=== PATIENT | female | born 1985 ===

== ENCOUNTER 2019-12-25 23:19 | Inpatient (IN) | payer OTHER ==
[2019-12-25] MEDS ORDERED: RAPID SEQUENCE INTUBATION KIT NR ONE (23:26)
[2019-12-25] MEDS ORDERED: PROPOFOL 1,000,000 MCG/100 ML VIAL ONE (23:39)
[2019-12-25] MEDS: MIDAZOLAM 100 MG in SODIUM CHLORIDE 100 ML IVPB SCH (23:45)
[2019-12-25] MEDS ORDERED: MIDAZOLAM IN 0.9 % SOD.CHLORID 1 MG/1 ML PLAST..BAG ONE (23:53)
[2019-12-25] MEDS ORDERED: LACTATED RINGERS SOLUTION 1000 ML INFUS.BAG IV ONE (23:55)
[2019-12-25] MEDS ORDERED: SODIUM CHLORIDE 0.9% 1000 ML INFUS.BAG IV ONE (23:55)
[2019-12-25] MEDS ORDERED: ETOMIDATE 20 MG/10 ML AMPUL IVPUSH ONE (23:56)
[2019-12-25] MEDS ORDERED: ROCURONIUM BROMIDE 50 MG/5 ML VIAL IV ONE (23:56)
[2019-12-26] MEDS ORDERED: ACETAMINOPHEN 650 MG SUPP.RECT ONE (00:14)
[2019-12-26] MEDS ORDERED: ACETAMINOPHEN 1000 MG/100 ML VIAL (NON FORMULARY) IVPB ONE (00:14)
--- NOTE | 2019-12-26 00:17 | PDOC ---
Attending Attestation - Resident Resident Name: MariojackAbner - ED Attending Attestation I have performed the following: I have examined & evaluated the patient, The case was reviewed & discussed with the resident, I agree w/resident's findings & plan, Exceptions are as noted - HPI HPI: 12/26/19 01:09 34yo female from [facility] with bipolar d/o, dm, covid-1, tbi, intellectual disability presents from [facility] for eval of seizure activity. Pt in status epilepticus and unable to provide any hx. Pt intubated upon arrival for airway protection after receiving 5mg versed by EMS and then 2mg IM ativan upon arrival in the ER. Finger stick 96. - Physicial Exam PE: 12/26/19 01:11 Gen: seizing, unresponsive neck: supple, trach site stoma healed heart: +s1s2 tachy lungs: cta b/l abd: soft, nt/nd +bs, peg site healed ext: swelling in all extremities, pulses intact neuro: R hand tremor/seizure activity, Rward gaze, active seizure activity 12/26/19 01:39 - Critical Care Time Total Critical Care Time: 90 Critical Care Statement: The care of this patient involved high complexity decision making to prevent further life threatening deterioration of the patient's condition and/or to evaluate & treat vital organ system(s) failure or risk of failure. - Medical Decision Making 12/26/19 00:14 a/p: 34yo female from [facility] with active seizure activity -per transfer paperwork, pt with seizure activity since 1045p -pt in status epilepticus -pt intubated for airway protection -pt febrile -per transfer paperwork, pt with covid -will send labs, cultures, link, tylenol, versed gtt, head ct, cxr -pt will need icu admission 12/26/19 01:14 labs hemolyzed pt with poor peripheral iv access cxr clear, ngt in place, ett in place central line placed under ultrasound guidance 12/26/19 01:18 pt still seizing despite propofol and versed resident discussing the case with Dr. Shay (neurology) ICU resident at the bedside 12/26/19 01:21 Dr. Shay requests keppra load 12/26/19 01:23 pt with qtc >540 will give mag 12/26/19 01:37 wbc 11, most likely from seizure activity 12/26/19 01:46 pt with a fall yesterday and seen at [facility] - had a head ct that was "neg" pt to head ct now 12/26/19 01:[address], ok to use central line 12/26/19 02:23 pt will be admitted to the ICU case discussed with the icu team, accepts pt to the icu Heart Score/ECG Review - ECG Intrepretation Comment:: 12/26/19 01:22 sinus tach at 145, r tinsley axis, t wave inversions lateral leads, qtc 543, abnl ekg 12/26/19 01:24 Discharge - Discharge Information Problems reviewed: Yes Clinical Impression/Diagnosis: Status epilepticus, Ventilator dependence Condition: Critical - Admission Yes - Follow up/Referral - Patient Discharge Instructions - Post Discharge Activity
--- NOTE | 2019-12-26 00:31 | PDOC ---
*Physical Exam - Vital Signs Last Vital Signs Temp Pulse Resp BP Pulse Ox 102.5 F H 143 H 16 100/56 L 100 12/25/19 23:20 12/25/19 23:20 12/26/19 00:09 12/25/19 23:20 12/26/19 00:09 ED Treatment Course - LABORATORY CBC & Chemistry Diagram: 12/25/19 23:59 12/25/19 23:59 Discharge - Discharge Information Problems reviewed: Yes Clinical Impression/Diagnosis: Status epilepticus Condition: Stable - Follow up/Referral - Patient Discharge Instructions - Post Discharge Activity Intubation - Intubation Reason for Intubation: Airway Protection Intubation Method: orotracheal Blade used: Mac Tube Size (cm): 7.5 Tube position @ lip (cm): 22 Tube position confirmed by: Direct visualization, CO2 detector, Chest x-ray, Breath sounds Breath Sounds after Intubation: equal Post Intubation Xray: Yes
--- NOTE | 2019-12-26 00:46 | CONSULT ---
Consultation: REQUESTING PROVIDER: Yelitza Sheikh DO CONSULT REQUEST: We have been asked to medically evaluate this patient for status epilepticus HPI: 34YOF with h/o TBI, MD/JOSE EDUARDO, on eliquis for DVT, DM, and bipolar disorder, who was BIBEMS from [facility] for seizure-like activity which started at around 10:45pm tonight. She was given 5 mg Versed IM en route to the ED by EMS which transiently broke her seizure but she was in status epilepticus on arrival to the ED again, and was intubated for airway protection, IO placed RLE, CVC in RI. She additionally was febrile on arrival to the ED. Per paperwork she was COVID-19 positive. She was given versed and propofol ggt in the ED. Also found to have very prolonged QTc at 543 ms and magnesium given. Per paperwork she was just seen at [facility] 12/24/19 for seizure and fall/hit head and had negative initial head CT. Per the uncle Abdoul, the patient had only had one seizure before in her life. PCP: Maria Antonia Anderson PMH: As above SURG: None known SOC: Lives at [facility] ROS Unable to obtain due to altered mental status/sedated/intubated LINES: RIJ CVC placed 12/26/19 TUBES: ETT placed 12/26/19 DRAINS: Altman placed 12/26/19 VENT SETTINGS MODE: AC RATE: 16 TV: 450 IF: 0.8 FiO2: 100 EXAM GENERAL: adult female, sedated, intubated, on ventilator, obese, responsive to pain HEENT: ETT in place, no e/o facial or head trauma, no blood from ETT or OGT, no acute oropharyngeal ulcerations, PERRL NECK/BACK: no obvious neck hematoma or other trauma CARDIOVASCULAR: regular rhythm and tachycardic, no MGR, strong peripheral pulses, lukewarm extremities LUNGS/RESPIRATORY: breath sounds coarse but no focal area of decreased sounds GI/ABDOMEN: symmetric, atraumatic outwardly : Latman in place, normal external appearance MSK/EXTREMITIES: no evidence of acute trauma DERM/SKIN: dry, no jaundice, no rash, no pathologic-appearing bruising NEUROLOGICAL: some purposeful movements of left arm (reaching for ETT), unable to assess A/O given that the patient is sedated, +brainstem reflexes, patient is otherwise unable to participate in exam ASSESSMENT/PLAN: 34YOF with h/o epilepsy, prior TBI, on eliquis, who p/w status epilepticus in the setting of recent visit to [facility] for seizure with head injury from fall with normal initial HCT at that time (12/24/19). Also found febrile tonight. NEURO/PSYCH: Status epilepticus, h/o TBI and MR/DD -HCT STAT ordered by ED, c/f [facility] or other ICH -Dr. Shay following in consult for Neurology -He is aware benzos do not seem to be breaking the seizures for any significant period of time -Recommended trying 1500 mg Keppra IVPUSH first in ED -If she continues to seize, then try 1500 mg Depakote -If she still continues to seize, then try 1500 mg Dilantin followed by Dilantin 200 mg bid -Ceftriaxone, vancomycin, acyclovir, dexamethasone ordered ENDOCRINE: Stable -Monitor CV: Prolonged QTc, sinus tachycardia, troponinemia, BNP elevated -Avoid QT prolonging medications -Serial troponin -Call placed to Dr. Lui and consult order placed RESP: Inability to protect airway -Intubated, f/u CXR, remain on vent -ABG ordered to f/u initial vent settings GI: Stable -NPO RENAL/: Stable -Monitor HEME: Stable -Monitor ID: Possible meningitis/encephalitis? -Ceftriaxone 2 gm given -Vancomycin 1.5 gm given -Acyclovir 1.1 gm given MSK: Stable -Monitor DERM: Stable -Monitor FEN: -IVF given in ED -Maintenance fluids at 100cc/hr -K and Mg repleted in ED Prophylaxis: -DVT: HOLD Eliquis and heparin until cardiology weighs in; still c/f ICH and thus this would be risky neurologically as well. -GI: Consider in the AM Code Status/Family Conversation: Full Code (per [employer] paperwork) -Attempted calling patient's brother Lars Busby at the number in [facility] paperwork ([phone]), left VM. -Called "office number" for brother on [place] paperwork ([phone]), reached patient's uncle Abdoul Busby, got updated number for brother Lars. -Attempted calling the number from Abdoul for brother Lars ([phone]), left VM Dispo: Requires ICU care at this time We will continue to follow the patient. Thank you for this consultative opportunity. Case discussed with ICU attending, Dr. Wilber Briggs. Alma Myers MD EM Resident PGY3 Problem List - Problems (1) Prolonged QT interval Code(s): R94.31 - ABNORMAL ELECTROCARDIOGRAM [ECG] [EKG] (2) Status epilepticus Code(s): G40.901 - EPILEPSY, UNSP, NOT INTRACTABLE, WITH STATUS EPILEPTICUS (3) Troponin I above reference range Code(s): R79.89 - OTHER SPECIFIED ABNORMAL FINDINGS OF BLOOD CHEMISTRY (4) Hypokalemia Code(s): E87.6 - HYPOKALEMIA (5) Hypomagnesemia Code(s): E83.42 - HYPOMAGNESEMIA Visit type - Emergency Visit Emergency Visit: Yes ED Registration Date: 12/25/19 Care time: The patient presented to the Emergency Department on the above date and was hospitalized for further evaluation of their emergent condition. - New Patient This patient is new to me today: Yes Date on this admission: 12/26/19 - Critical Care Critical Care patient: Yes Total Critical Care Time (in minutes): 60 Critical Care Statement: The care of this patient involved high complexity decision making to prevent further life threatening deterioration of the patient's condition and/or to evaluate & treat vital organ system(s) failure or risk of failure. ATTENDING PHYSICIAN STATEMENT I saw and evaluated the patient. I reviewed the resident's note and discussed the case with the resident. I agree with the resident's findings and plan as documented. SUBJECTIVE: OBJECTIVE: ASSESSMENT AND PLAN:
[2019-12-26] MEDS: PROPOFOL 1,000,000 MCG/100 ML VIAL IVPB SCH ×4 (00:50→17:06)
[2019-12-26] MEDS ORDERED: LORazepam 2 MG/ML SDV VIAL IM ONE (01:17)
[2019-12-26] MEDS ORDERED: LORazepam 2 MG/ML SDV VIAL IVPUSH ONE (01:17)
[2019-12-26] MEDS ORDERED: levETIRAcetam 500 MG/5 ML INJECTION VIAL IVPB ONE (01:20)
[2019-12-26 01:22] LABS: BASO % 0.8 % (0-2.0); EOS % 0.2 % (0-4.5); HEMATOCRIT 34.3 % (32.4-45.2); HEMOGLOBIN 11.2 GM/dL (10.7-15.3); LYMPH % 23.2 % (8-40); MCH 31.1 pg (25.7-33.7); MCHC 32.8 g/dl (32.0-36.0); MEAN CELL VOLUME 95.1 fl (80-96); MEAN PLT VOLUME 9.9 fl (7.5-11.1); MONO % 12.4 % (3.8-10.2); NEUT % 63.4 % (42.8-82.8); PLATELET COUNT 144 K/MM3 (134-434); RBC 3.61 M/mm3 (3.60-5.2); RDW 15.6 % (11.6-15.6)
[2019-12-26] MEDS ORDERED: MAGNESIUM SULF 50% (8.12 MEQ/2 ML-1 GM VIAL) IVPB ONE (01:23)
--- NOTE | 2019-12-26 01:24 | PDOC ---
History of Present Illness - General Chief Complaint: Seizure Stated Complaint: SEIZURES Time Seen by Provider: 12/25/19 23:52 Past History - Past Medical History Allergies/Adverse Reactions: Allergies Allergy/AdvReac Type Severity Reaction Status Date / Time haloperidol [From Haldol] Allergy Verified 12/26/19 01:53 NSAIDS (Non-Steroidal Allergy Verified 12/26/19 01:53 Anti-Inflamma COPD: No Seizures: Yes Other medical history: TBI - Immunization History Immunization Up to Date: Yes - Psycho Social/Smoking Cessation Hx Smoking History: Never smoked Hx Alcohol Use: No Drug/Substance Use Hx: No *Physical Exam - Vital Signs Last Vital Signs Temp Pulse Resp BP Pulse Ox 102.5 F H 125 H 16 132/80 100 12/25/19 23:20 12/26/19 00:54 12/26/19 00:54 12/26/19 00:54 12/26/19 00:54 Procedures - Central Line Central Line Lumen: triple Central Line Position: internal jugular (R) Anesthesia: other (prop drip) Complications: none Post Central Line Insertion: sutured, good blood return, position confirmed w/ CXR ED Treatment Course - LABORATORY CBC & Chemistry Diagram: 12/26/19 01:16 12/26/19 01:16 Medical Decision Making - Medical Decision Making 12/26/19 01:23 discussed case with Neurology, states 1500 mg Keppra now, if pt continues to have seizures give 1500 mg Depakote, and if she has further seizures give 1500 Dilantin followed by 200 mg BID Discharge - Discharge Information Clinical Impression/Diagnosis: Status epilepticus, Ventilator dependence Condition: Critical - Follow up/Referral - Patient Discharge Instructions - Post Discharge Activity
[2019-12-26 01:25] LABS: VENOUS PH 7.41 (7.31-7.41)
[2019-12-26 01:26] LABS: VENOUS BASE EXCESS -2.7 mmol/L (-2-2); VENOUS PC02 34.7 mmHg (38-52); VENOUS PO2 < 49 mmHg (28-48)
[2019-12-26 01:31] LABS: INR 1.41 (0.83-1.09); PROTHROMBIN TIME (PATIENT) 16.7 SEC (9.7-13.0)
[2019-12-26 01:33] LABS: ACTIVATED PTT 30.2 SECONDS (25.2-36.5)
[2019-12-26] MEDS ORDERED: ACETAMINOPHEN 650 MG SUPP.RECT PR ONE (01:43)
[2019-12-26 01:49] LABS: EPI CELLS >36 /uL (0-25.1); HYALINE CASTS 57 /uL (0-3.1); URINE APPEARANCE CLOUDY; URINE BACTERIA 21 /uL (0-1359); URINE BILIRUBIN 3+ (NEGATIVE); URINE COLOR DK YELLOW; URINE GLUCOSE (UA) NEGATIVE (NEGATIVE); URINE KETONE 3+ (NEGATIVE); URINE LEUK ESTERASE TRACE (NEGATIVE); URINE NITRITE NEGATIVE (NEGATIVE); URINE PROTEIN 2+ (NEGATIVE); URINE WBC 64 /uL (0-25.8)
[2019-12-26 01:50] LABS: ALBUMIN 3.1 g/dl (3.4-5.0); BLOOD UREA NITROGEN 18.5 mg/dL (7-18); CALCIUM 8.7 mg/dL (8.5-10.1); MAGNESIUM 1.4 mg/dL (1.8-2.4); N-TERMINAL BNP 6399.8 pg/ml (5-125)
[2019-12-26 01:51] LABS: HCG,QUALITATIVE URINE Negative
[2019-12-26 02:29] LABS: POTASSIUM 2.5 mmol/L (3.5-5.1)
[2019-12-26] MEDS ORDERED: POTASSIUM CHLORIDE ORAL LIQUID 20 MEQ/15 ML PO ONE (02:30)
[2019-12-26] MEDS ORDERED: MIDAZOLAM IN 0.9 % SOD.CHLORID 1 MG/1 ML PLAST..BAG ONE ×2 (02:41→19:37)
[2019-12-26] MEDS ORDERED: ACYCLOVIR 500 MG (50MG/ML) VIAL IVPB ONE (02:47)
[2019-12-26] MEDS ORDERED: DEXAMETHASONE SOD PHOSPHATE 10 MG/1 ML VIAL IVPUSH ONE (02:47)
[2019-12-26] MEDS ORDERED: CEFTRIAXONE 2,000 MG in DEXTROSE 5%-WATER - 50 ML IVPB ONE (02:47)
[2019-12-26 02:49] LABS: ARTERIAL BLD GAS O2 SATURATION 98.6 % (95-98); ARTERIAL BLOOD GAS BASE EXCESS -3.5 mmol/L (-2-2); ARTERIAL BLOOD GAS PCO2 28.3 mmHg (35-45); ARTERIAL BLOOD GAS pH 7.45 (7.35-7.45)
[2019-12-26 02:50] LABS: ALLENS TEST POSITIVE
[2019-12-26] MEDS ORDERED: VANCOMYCIN HCL 1,500 MG in DEXTROSE 5%-WATER - 500 ML IVPB ONE (02:52)
[2019-12-26] MEDS ORDERED: POTASSIUM CHLORIDE ORAL LIQUID 20 MEQ/15 ML ONE (02:54)
[2019-12-26] MEDS ORDERED: WATER IVPB ONE (03:15)
[2019-12-26] MEDS ORDERED: DEXTROSE 5% IVPB ONE (03:15)
[2019-12-26] MEDS ORDERED: ACYCLOVIR IVPB ONE (03:15)
[2019-12-26] MEDS ORDERED: PROPOFOL 1,000,000 MCG/100 ML VIAL ONE (03:16)
[2019-12-26] MEDS: POTASSIUM CHLORIDE 20 MEQ PREMIX IVPB 100 ML IVPB SCH ×3 (03:19→05:41)
[2019-12-26] MEDS ORDERED: SODIUM CHLORIDE 1,000 ML IV SCH (03:30)
[2019-12-26] MEDS ORDERED: CEFTRIAXONE 2 GM in DEXTROSE 5%-WATER 100 ML IVPB ONE (05:30)
[2019-12-26 05:52] LABS: BASO % 0.7 % (0-2.0); EOS % 0.2 % (0-4.5); HEMATOCRIT 33.1 % (32.4-45.2); HEMOGLOBIN 10.6 GM/dL (10.7-15.3); LYMPH % 37.5 % (8-40); MCH 30.6 pg (25.7-33.7); MCHC 32.2 g/dl (32.0-36.0); MEAN CELL VOLUME 95.2 fl (80-96); MEAN PLT VOLUME 9.6 fl (7.5-11.1); MONO % 11.9 % (3.8-10.2); NEUT % 49.7 % (42.8-82.8); PLATELET COUNT 139 K/MM3 (134-434); RBC 3.47 M/mm3 (3.60-5.2); RDW 15.4 % (11.6-15.6); WHITE BLOOD COUNT 10.7 K/mm3 (4.0-10.0)
[2019-12-26 06:10] LABS: ALBUMIN 2.8 g/dl (3.4-5.0); BILIRUBIN,TOTAL 0.7 mg/dL (0.2-1); BLOOD UREA NITROGEN 15.6 mg/dL (7-18); CALCIUM 8.6 mg/dL (8.5-10.1); CREATININE 0.8 mg/dL (0.55-1.3); POTASSIUM 4.2 mmol/L (3.5-5.1); TOT PROT 6.5 g/dl (6.4-8.2)
--- NOTE | 2019-12-26 07:03 | PN ---
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 (short form) - Note 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: Received the patient in the ICU, team attempted to remove the right tibial IO. IO needle very firmly stuck in place in anterial tibial area proximally. Followed instructions in IO kit to attach luer lock syringe and twist clockwise while pulling out, about 5mm of it came out, then the yellow top popped off the metal portion which is still sticking out of the skin. XR frontal and lateral ordered Problem List - Problems (1) Prolonged QT interval Code(s): R94.31 - ABNORMAL ELECTROCARDIOGRAM [ECG] [EKG] (2) Status epilepticus Code(s): G40.901 - EPILEPSY, UNSP, NOT INTRACTABLE, WITH STATUS EPILEPTICUS (3) Troponin I above reference range Code(s): R79.89 - OTHER SPECIFIED ABNORMAL FINDINGS OF BLOOD CHEMISTRY (4) Hypokalemia Code(s): E87.6 - HYPOKALEMIA (5) Hypomagnesemia Code(s): E83.42 - HYPOMAGNESEMIA
[2019-12-26] MEDS ORDERED: DEXTROSE 5%-LACTATED RINGERS 1,000 ML IV SCH (08:15)
[2019-12-26 08:43] LABS: MAGNESIUM 2.4 mg/dL (1.8-2.4); PHOSPHOROUS 2.2 mg/dL (2.5-4.9)
[2019-12-26] MEDS ORDERED: PT OWN MED DRAWER 7, Y5N ONE ×5 (08:55→21:35)
[2019-12-26] MEDS ORDERED: DEXAMETHASONE SOD PHOSPHATE 10 MG/1 ML VIAL IVPUSH SCH (09:00)
[2019-12-26] MEDS: DEXAMETHASONE SOD PHOSPHATE 10 MG/1 ML VIAL IVPUSH SCH ×3 (09:03→21:33)
[2019-12-26] MEDS ORDERED: NAPH,MB-DB/K PH,MBDB POWDER PACKET PO ONE (10:06)
[2019-12-26] MEDS: MUPIROCIN 2% TOPICAL OINTMENT FOR DECOLONIZATION NS SCH ×2 (10:36→21:33)
--- NOTE | 2019-12-26 10:52 | CON.CARD ---
Consult Consult Specialty:: Cardiology Referred by:: Dr. Albert Reason for Consultation:: Elevated troponin - History of Present Illness Chief Complaint: Seizure History of Present Illness: 34 year-old woman, NHR, with a PMHx of DM, DVT on Eliquis, traumatic brain injury, bipolar disorder and seizure 12/24/19 brought to ED 12/25/19 from [facility] for seizure-like activities Seizure started at around 10:45pm 12/25/19. She was given 5 mg Versed IM en route to the ED by EMS which transiently broke her seizure but she was in status epilepticus on arrival to the ED again, and was intubated for airway protection. She was febrile on arrival to the ED. Per paperwork she was COVID-19 positive. She was given versed and propofol ggt in the ED. Also found to have very prolonged QTc at 543 ms and magnesium given. Per paperwork she was just seen at [place] 12/24/19 for seizure and fall/hit head and had negative initial head CT. She was found to have elevated troponin I (3.35 -> 2.36) and BNP (6399). CK is going up: 332 ->1464. She has no recurrent seizure after arrival in ICU. ECG 12/26/19: sinus tachycardia at 145 BPM. RAD. Lateral T wave abnormalities. The patient was seen and examined in ICU. She remains sedated and intubated. Telemetry shows mild sinus tachycardia. - History Source History Provided By: Medical Record Limitations to Obtaining History: No Limitations - Past Medical History CODING SUPPORT SPECIALIST: Yes: Seizure - Alcohol/Substance Use Hx Alcohol Use: No - Smoking History Smoking history: Never smoked Home Medications - Allergies Allergies/Adverse Reactions: Allergies Allergy/AdvReac Type Severity Reaction Status Date / Time haloperidol [From Haldol] Allergy Verified 12/26/19 01:53 NSAIDS (Non-Steroidal Allergy Verified 12/26/19 01:53 Anti-Inflamma - Home Medications Home Medications: Ambulatory Orders Acetaminophen [Pain Relief] 650 mg PO Q6H PRN 12/26/19 Apixaban [Eliquis] 2.5 mg PO BID 12/26/19 Benztropine Mesylate 1 mg PO BID 12/26/19 Buspirone HCl [Buspar -] 15 mg PO TID 12/26/19 Cholecalciferol (Vitamin D3) [Vitamin D3 -] 1,000 unit PO DAILY 12/26/19 Fluoxetine HCl 10 mg PO DAILY 12/26/19 Lorazepam [Ativan] 1 mg PO Q8H 12/26/19 Mag Hydrox/Aluminum Hyd/Simeth [Saritha-Lanta Liquid] 30 ml PO Q6H 12/26/19 Multivitamin [Poly-Vitamin] 1 each PO DAILY 12/26/19 Nystatin Cream [Mycostatin Cream -] 1 applic TD DAILY 12/26/19 Perphenazine 2 mg PO BID 12/26/19 Perphenazine 6 mg PO HS 12/26/19 Polyethylene Glycol 3350 [Glycolax] 17 gm PO DAILY 12/26/19 Potassium Chloride 20 meq PO DAILY 12/26/19 Quetiapine Fumarate [Seroquel -] 300 mg PO HS 12/26/19 Sennosides [Evac-U-Gen] 17.2 mg PO HS 12/26/19 Valproic Acid (As Sodium Salt) [Valproic Acid] 5 ml PO BID 12/26/19 Valproic Acid (As Sodium Salt) [Valproic Acid] 30 ml PO HS 12/26/19 traZODone HCL [Trazodone HCl] 100 mg PO HS 12/26/19 Review of Systems - Review of Systems Constitutional: reports: Fever Eyes: reports: No Symptoms, Floaters HENT: reports: No Symptoms Neck: reports: No Symptoms Cardiovascular: reports: No Symptoms Respiratory: reports: No Symptoms Genitourinary: reports: No Symptoms Neurological: reports: Seizure Endocrine: reports: No Symptoms Vital Signs: Vital Signs Temperature 95.9 F L 12/26/19 10:00 Pulse Rate 99 H 12/26/19 10:00 Respiratory Rate 16 12/26/19 10:00 Blood Pressure 101/64 12/26/19 10:00 O2 Sat by Pulse Oximetry (%) 100 12/26/19 10:00 General: Well developed. Obese. Intubated and sedated. Head: Normocephalic. Atraumatic, Heart: Normal S1, S2: Regular rhythm and tachyardia. Lungs: Symmetrical coarse BS. Abdomen: Soft. Bowel sound positive. Extremities: No edema. No clubbing or cyanosis. PD 2+, equal bilaterally. - Other Data Labs, Other Data: CBC, BMP 12/26/19 05:30 12/26/19 05:30 INR, PTT INR 1.41 (0.83-1.09) H 12/26/19 01:16 Troponin, BNP 12/25/19 12/26/19 12/26/19 23:59 01:16 05:30 Troponin I Cancelled 3.35 H* 2.36 H* B-Natriuretic Peptide 6399.8 H Troponin, BNP 12/25/19 12/26/19 12/26/19 23:59 01:16 05:30 Troponin I Cancelled 3.35 H* 2.36 H* B-Natriuretic Peptide 6399.8 H Assessment/Plan 34 year-old woman, NHR, with a PMHx of DM, DVT on Eliquis, traumatic brain injury, bipolar disorder and seizure 12/24/19 brought to ED 12/25/19 from [facility] for seizure-like activities She was found to have elevated troponin I (3.35 -> 2.36) and BNP (6399). CK is going up: 332 ->1464. She has no recurrent seizure after arrival in ICU. ECG 12/26/19: sinus tachycardia at 145 BPM. RAD. Lateral T wave abnormalities. Elevated troponin I, likely demand ischemia due to rapid heart beats during status epilepticus. Unlikely acute coronary syndrome. 1) Repeat Troponin and CK. Troponin is trending down. 2) Can not explain BNP elevation. Patient has no physical signs of fluid overload or history of CHF. Please repeat BNP. 3) Obtain echo to evaluate LV systolic function and rule our wall motion abnormalities. 4) Conservative cardiac care for now.
--- NOTE | 2019-12-26 10:55 | PN ---
Teaching Attending Note Name of Resident: Kane Matta ATTENDING PHYSICIAN STATEMENT I saw and evaluated the patient. I reviewed the resident's note and discussed the case with the resident. I agree with the resident's findings and plan as documented. SUBJECTIVE: Pt seen and exained in the ICU. Remains intubated, sedated. No pressors. Hypot hermic now, placed on patrizia hugger. Rest of IO needle removed. OBJECTIVE: Vital Signs Period Temp Pulse Resp BP Sys/Gama Pulse Ox Last 24 Hr 95.2 F-102.5 F 92-143 16-17 100-136/55-82 100-100 Intake & Output 12/23/19 12/24/19 12/25/19 12/26/19 23:59 23:59 23:59 23:59 Intake Total 674 Output Total 420 Balance 254 Weight 110 kg 89.811 kg Gen: intubated, sedated Neck: supple Heart: RRR Lung: decreased breath sounds at the bases Abd: soft, nontender Ext: no edema CBC, BMP 12/26/19 05:30 12/26/19 05:30 Active Medications Chlorhexidine Gluconate (Hibiclens For Decolonization -) 1 applic TP HS CARL Dexamethasone Sodium Phosphate (Decadron Injection -) 10 mg IVPUSH Q6H-IV CARL Stop: 12/29/19 23:59 Last Admin: 12/26/19 09:03 Dose: 10 mg Documented by: Midazolam HCl 100 mg/ Sodium (Chloride) 100 mls @ 1 mls/hr IVPB TITR CARL; Protocol Last Titration: 12/26/19 05:19 Dose: 5 mg/hr, 5 mls/hr Documented by: Propofol (Diprivan -) 1,000,000 mcg in 100 mls @ 3.3 mls/hr IVPB TITR CARL; Protocol Last Admin: 12/26/19 08:15 Dose: 30 mcg/kg/min, 19.8 mls/hr Documented by: Dextrose/Lactated Ringer's (D5-Lr -) 1,000 mls @ 100 mls/hr IV ASDIR CARL Last Admin: 12/26/19 08:15 Dose: 100 mls/hr Documented by: Insulin Aspart (Novolog Vial Sliding Scale -) 1 vial SQ ACHS [facility]; Protocol Mupirocin (Bactroban Ointment (For Decolonization) -) 1 applic NS BID CARL Stop: 12/31/19 09:59 Last Admin: 12/26/19 10:36 Dose: 1 applic Documented by: ASSESSMENT AND PLAN: Status Epilepticus Acute Respiratory Failure r/o Meningitis Recent COVID19 Bipolar Disorder Mental Retardation DM h/o TBI h/o DVT Anemia - antiepileptics per neuro - continue antibiotics, steroids - f/u cultures, serologies - ID eval - IVF - monitor urine output, creatinine - continue sedation - DVT/GI prophylaxis - continue ICU monitoring critical care time spent in reviewing chart, evaluating patient and formulating plan 35 min
[2019-12-26] MEDS: INSULIN SLIDING SCALE (NOVOLOG) 1 VIAL SQ SCH ×2 (11:00→17:15)
--- NOTE | 2019-12-26 11:11 | EKG ---
Test Reason : Blood Pressure : / mmHG Vent. Rate : 145 BPM Atrial Rate : 145 BPM P-R Int : 096 ms QRS Dur : 078 ms QT Int : 350 ms P-R-T Axes : 000 263 084 degrees QTc Int : 543 ms SINUS TACHYCARDIA WITH SHORT IL RIGHT SUPERIOR AXIS DEVIATION POSSIBLE INFERIOR INFARCT , AGE UNDETERMINED T WAVE ABNORMALITY, CONSIDER LATERAL ISCHEMIA ABNORMAL ECG NO PREVIOUS ECGS AVAILABLE Confirmed by HOLGER MCCABE MD ([id number]) on 12/26/2019 11:11:43 AM Referred By: Confirmed By:HOLGER MCCABE MD
[2019-12-26] MEDS: levETIRAcetam 500 MG/5 ML INJECTION VIAL IVPB SCH ×2 (11:27→21:33)
[2019-12-26] MEDS: PANTOPRAZOLE SODIUM 40 MG VIAL IVPUSH SCH (11:27)
--- NOTE | 2019-12-26 12:56 | CON.NEURO ---
Consult - Alcohol/Substance Use Hx Alcohol Use: No - Smoking History Smoking history: Never smoked Home Medications - Allergies Allergies/Adverse Reactions: Allergies Allergy/AdvReac Type Severity Reaction Status Date / Time haloperidol [From Haldol] Allergy Verified 12/26/19 01:53 NSAIDS (Non-Steroidal Allergy Verified 12/26/19 01:53 Anti-Inflamma - Home Medications Home Medications: Ambulatory Orders Acetaminophen [Pain Relief] 650 mg PO Q6H PRN 12/26/19 Apixaban [Eliquis] 2.5 mg PO BID 12/26/19 Benztropine Mesylate 1 mg PO BID 12/26/19 Buspirone HCl [Buspar -] 15 mg PO TID 12/26/19 Cholecalciferol (Vitamin D3) [Vitamin D3 -] 1,000 unit PO DAILY 12/26/19 Fluoxetine HCl 10 mg PO DAILY 12/26/19 Lorazepam [Ativan] 1 mg PO Q8H 12/26/19 Mag Hydrox/Aluminum Hyd/Simeth [Saritha-Lanta Liquid] 30 ml PO Q6H 12/26/19 Multivitamin [Poly-Vitamin] 1 each PO DAILY 12/26/19 Nystatin Cream [Mycostatin Cream -] 1 applic TD DAILY 12/26/19 Perphenazine 2 mg PO BID 12/26/19 Perphenazine 6 mg PO HS 12/26/19 Polyethylene Glycol 3350 [Glycolax] 17 gm PO DAILY 12/26/19 Potassium Chloride 20 meq PO DAILY 12/26/19 Quetiapine Fumarate [Seroquel -] 300 mg PO HS 12/26/19 Sennosides [Evac-U-Gen] 17.2 mg PO HS 12/26/19 Valproic Acid (As Sodium Salt) [Valproic Acid] 5 ml PO BID 12/26/19 Valproic Acid (As Sodium Salt) [Valproic Acid] 30 ml PO HS 12/26/19 traZODone HCL [Trazodone HCl] 100 mg PO HS 12/26/19 Physical Exam-Neuro Vital Signs: Vital Signs Temperature 103 F H 12/26/19 12:00 Pulse Rate 98 H 12/26/19 12:00 Respiratory Rate 16 12/26/19 12:00 Blood Pressure 96/59 L 12/26/19 12:00 O2 Sat by Pulse Oximetry (%) 100 12/26/19 10:00 Labs: CBC, BMP 12/26/19 05:30 12/26/19 05:30 INR, PTT INR 1.41 (0.83-1.09) H 12/26/19 01:16 Assessment/Plan cc Status Epilepticus HPI 34 year old female [place] resident, history of TBI, , on eliquis for DVT, DM, Bipolar disorder. patient has only one seizure in past and was not on any AED inpast. Patietn has been on antipsychotic medicaiton and on depakote for behavior difficulty. Patient was treated with versed and itubated. Patient was treated for meningitis empirically. There has not been fever , wbc . Patient PMH: As above SURG: None known SOC: Lives at [facility] NEUROLOGICAL EXAMINATION ibtubated and sedated, neck is spple pupils reactive no seizure activity was seen limited neuro exam ct head showed right frontal lobe encephalomalacia Assessment/Plan 34 year old female [place] resident, history of TBI, , on eliquis for DVT, DM, Bipolar disorder. She is on multiple psych medicaiton including antidepressant and antipsychotic medicaiton , and depakote. Patient has only one seizur ein past. Ct head showed encephalomalacia, and came with status epilepiticuts, sedated and intubated . There has not been any seizure recently. - Clinically less likley to be meningitis , fever could be secodnary to seizure activity. Continue depakote 1500 iv tid ( as taking at [place]) and Keppra 1500 mg iv bid - hold psych medication - mri of brain once stab;e - pateint was covid positive 1-2 weeks ago, waiting for ID input -Spoke to primary team, and house staff, spent 35 minute critical time - EEG Thanking you so much Gonsalo Shay MD
[2019-12-26] MEDS: SODIUM CHLORIDE 1,000 ML IV SCH (13:00)
--- NOTE | 2019-12-26 13:18 | PN ---
Physical Exam: SUBJECTIVE: Patient seen and examined. Pt currently sedated and ventilated. On Versed and propofol. Hx of bipolar. Recent hx of [facility] admission for seizure/fall. OBJECTIVE: Vital Signs Period Temp Pulse Resp BP Sys/Gama Pulse Ox Last 24 Hr 95.2 F-103 F 92-143 16-17 96-136/55-82 100-100 GENERAL: sedated, intubated, on ventilator, obese HEENT: ETT in place, no e/o facial or head trauma, no blood from ETT, no acute oropharyngeal ulcerations, PERRL NECK/BACK: no obvious neck hematoma or other trauma CARDIOVASCULAR: regular rhythm and tachycardic, no MGR, strong peripheral pulses, lukewarm extremities LUNGS/RESPIRATORY: breath sounds coarse but no focal area of decreased sounds GI/ABDOMEN: symmetric, atraumatic outwardly : Alt[place] in place, normal external appearance MSK/EXTREMITIES: no evidence of acute trauma DERM/SKIN: dry, no jaundice, no rash, no pathologic-appearing bruising NEUROLOGICAL: unable to assess A/O given that the patient is sedated, +brainstem reflexes, patient is otherwise unable to participate in exam Laboratory Results - last 24 hr 12/26/19 12/26/19 12/26/19 01:16 01:29 02:40 WBC Corrected WBC (auto) RBC Hgb Hct MCV MCH MCHC RDW Plt Count MPV Absolute Neuts (auto) Neutrophils % Lymphocytes % Monocytes % Eosinophils % Basophils % Nucleated RBC % Manual Slide Review Platelet Comment ESR PT with INR INR PTT (Actin FS) Anticoagulation Therapy No Result Required. Puncture Site Right radial Patient Temperature ABG pH 7.45 ABG pCO2 at Pt Temp 28.3 L ABG pO2 at Pt Temp 122.0 H ABG HCO3 19.4 L ABG O2 Sat (Measured) 98.6 H ABG O2 Content No Result Required. ABG Base Excess -3.5 L Víctor Test Positive VBG pH POC VBG pCO2 POC VBG pO2 VBG HCO3 VBG O2 Sat (Davey) VBG Base Excess Carboxyhemoglobin Methemoglobin Patient On Oxygen Yes O2 Delivery Device Vent Oxygen Flow Rate 40% Vent Mode A/c Vent Rate 16 Mechanical Rate No Result Required. PEEP 5.0 Pressure Support Vent 450 Sodium Potassium Chloride Carbon Dioxide Anion Gap BUN Creatinine Est GFR (CKD-EPI)AfAm Est GFR (CKD-EPI)NonAf Random Glucose Lactic Acid 1.2 Calcium Phosphorus Magnesium Ferritin Total Bilirubin AST ALT Alkaline Phosphatase LD Total Creatine Kinase Creatine Kinase Index CK-MB (CK-2) Troponin I C-Reactive Protein B-Natriuretic Peptide Total Protein Albumin TSH Urine Color Dk yellow Urine Appearance Cloudy Urine pH 5.[address] 1.028 Urine Protein 2+ H Urine Glucose (UA) Negative Urine Ketones 3+ H Urine Blood 2+ H Urine Nitrite Negative Urine Bilirubin 3+ H Urine Urobilinogen 1.0 Ur Leukocyte Esterase Trace Urine WBC (Auto) 64 Urine Casts (Auto) 57 U Epithel Cells (Auto) >36 Urine Bacteria (Auto) 21 Urine HCG, Qual Negative Valproic Acid 12/26/19 12/26/19 12/26/19 05:30 05:30 05:30 WBC 10.7 H Corrected WBC (auto) RBC 3.47 L Hgb 10.6 L Hct 33.1 MCV 95.2 MCH 30.6 MCHC 32.2 RDW 15.4 Plt Count 139 MPV 9.6 Absolute Neuts (auto) 5.3 Neutrophils % 49.7 D Lymphocytes % 37.5 D Monocytes % 11.9 H Eosinophils % 0.2 Basophils % 0.7 Nucleated RBC % 0 Manual Slide Review Platelet Comment ESR PT with INR INR PTT (Actin FS) Anticoagulation Therapy Puncture Site Patient Temperature ABG pH ABG pCO2 at Pt Temp ABG pO2 at Pt Temp ABG HCO3 ABG O2 Sat (Measured) ABG O2 Content ABG Base Excess Víctor Test VBG pH POC VBG pCO2 POC VBG pO2 VBG HCO3 VBG O2 Sat (Davey) VBG Base Excess Carboxyhemoglobin Methemoglobin Patient On Oxygen O2 Delivery Device Oxygen Flow Rate Vent Mode Vent Rate Mechanical Rate PEEP Pressure Support Vent Sodium 145 Potassium 4.2 Chloride 112 H Carbon Dioxide 20 L Anion Gap 13 BUN 15.6 Creatinine 0.8 Est GFR (CKD-EPI)AfAm 113.06 Est GFR (CKD-EPI)NonAf 97.55 Random Glucose 71 L Lactic Acid Calcium 8.6 Phosphorus 2.2 L Magnesium 2.4 Ferritin Total Bilirubin 0.7 AST 53 H ALT 19 Alkaline Phosphatase 85 LD Total Creatine Kinase 1464 H Creatine Kinase Index 0.3 CK-MB (CK-2) 4.8 H Troponin I 2.36 H* C-Reactive Protein B-Natriuretic Peptide Total Protein 6.5 Albumin 2.8 L TSH Urine Color Urine Appearance Urine pH Ur Specific [place] Urine Protein Urine Glucose (UA) Urine Ketones Urine Blood Urine Nitrite Urine Bilirubin Urine Urobilinogen Ur Leukocyte Esterase Urine WBC (Auto) Urine Casts (Auto) U Epithel Cells (Auto) Urine Bacteria (Auto) Urine HCG, Qual Valproic Acid Active Medications Generic Name Dose Route Start Last Admin Trade Name Shellie PRN Reason Stop Dose Admin Chlorhexidine Gluconate 1 applic 12/26/19 22:00 Hibiclens For Decolonization - TP HS CARL Dexamethasone Sodium Phosphate 10 mg 12/26/19 10:00 12/26/19 09:03 Decadron Injection - IVPUSH 12/29/19 23:59 10 mg Q6H-IV CARL Administration Midazolam HCl 100 mg/ Sodium 100 mls @ 1 mls/hr 12/25/19 23:45 12/26/19 05:19 Chloride IVPB 5 mg/hr TITR CARL 5 mls/hr Titration Protocol 1 MG/HR Propofol 1,000,000 mcg in 100 mls @ 3.3 mls/hr 12/26/19 01:30 12/26/19 08:15 Diprivan - IVPB 30 mcg/kg/min TITR CARL 19.8 mls/hr Administration Protocol 5 MCG/KG/MIN Vancomycin HCl 1,500 mg/ 250 mls @ 125 mls/hr 12/26/19 18:00 Dextrose IVPB Q12H CARL Protocol Ceftriaxone Sodium 2 gm/ 100 mls @ 200 mls/hr 12/26/19 18:00 Dextrose IVPB 0600,1800 CARL Protocol Acyclovir 900 mg/ Dextrose 268 mls @ 100 mls/hr 12/26/19 14:00 IVPB Q8H-IV CARL Sodium Chloride 1,000 mls @ 75 mls/hr 12/26/19 12:30 Normal Saline - IV ASDIR CARL Vancomycin HCl 1,500 mg/ 500 mls @ 125 mls/hr 12/26/19 18:00 Dextrose IVPB 12/27/19 09:59 Q12H CARL Protocol Insulin Aspart 1 vial 12/26/19 11:00 12/26/19 11:00 Novolog Vial Sliding Scale - SQ 2 units ACHS CARL Administration Protocol Levetiracetam 1,500 mg 12/26/19 11:15 12/26/19 11:27 Keppra Injection - IVPB 1,500 mg BID CARL Administration Multivitamins/Minerals/Vitamin C 1 tab 12/27/19 10:00 Tab-A-Vit - PO DAILY CARL Mupirocin 1 applic 12/26/19 10:00 12/26/19 10:36 Bactroban Ointment (For Decolonization) - NS 12/31/19 09:59 1 applic BID CARL Administration Nystatin 1 applic 12/27/19 10:00 Mycostatin Cream - TP DAILY CARL Pantoprazole Sodium 40 mg 12/26/19 11:00 12/26/19 11:27 Protonix Iv IVPUSH 40 mg DAILY CARL Administration Polyethylene Glycol 17 gm 12/27/19 10:00 Miralax (For Bowel Prep) - PO DAILY CARL Potassium Chloride 20 meq 12/27/19 10:00 K-Dur - PO DAILY CARL Senna 2 tab 12/26/19 22:00 Senna - PO HS CARL Valproate Sodium 1,500 mg 12/26/19 14:00 Depacon Injection - IVPB TID CARL ASSESSMENT/PLAN: 34YOF with h/o epilepsy, prior TBI, on eliquis, who p/w status epilepticus in the setting of recent visit to [facility] for seizure with head injury from fall with normal initial HCT at that time (12/24/19). Also found febrile tonight. #NEURO/PSYCH: Status epilepticus, h/o TBI- [facility] unsure of when. MR/DD CT: s/p craniotomy, encephalomalacia noted, no hemorrhage 1500 mg Keppra BID + [address] Shay following in consult for Neurology R/o Meningitis Cont Ceftriaxone, vancomycin, acyclovir, dexamethasone LP scheduled for tomorrow due to the fact pt had her last dose Eliquis last night 12/24 On versed 5, Prop 30 Baseline mental status- bed bound, hallucination, confused #CV Prolonged QTc, sinus tachycardia, troponinemia trending down BNP elevated- will monitor Avoid QT prolonging medications Consulted Cardio Dr. Lui Eliquis BID started by [facility] for dvt ppx When serologies return, can consider ECHO #Pulm Intubated- 16/450/40/5 AB.45/28.3/122/19.4 COVID pending Pt discharged in september to [facility] from [place] for Acute hypoxic resp failure 2/ to COVID+ #ENDOCRINE: Stable Monitor #GI NPO #RENAL/ Monitor #HEME: -Monitor #ID: R/o Possible meningitis/encephalitis? Ceftriaxone 2 g Q12 Vancomycin 1500 mg Q12 Acyclovir 900 mg Q8H dexamethasone 10 mg Q6 BCx pending, UCx pending ID consulted LP for tomorrow #DERM: Stable -Monitor IO placed from ED? Removed in ICU #Lines RIJ 12/25 FEN: IVF at 75 NPO monitor lytes Prophylaxis: -DVT: HOLD Eliquis and heparin until cardiology weighs in -GI: protonix Code Status/Family Conversation: Full Code (per [facility] paperwork) Dispo: cont ICU monitoring, LP scheduled for am, cont abx, antiepileptics Brother Lars Busby at the number in [facility] paperwork ([phone]) Brother on [place] paperwork ([phone]), reached patient's uncle Abdoul Busby, got updated number for brother Eric. Schreiber ([phone]) Visit type - Emergency Visit Emergency Visit: Yes ED Registration Date: 12/25/19 Care time: The patient presented to the Emergency Department on the above date and was hospitalized for further evaluation of their emergent condition. - New Patient This patient is new to me today: Yes Date on this admission: 01/01/20 - Critical Care Critical Care patient: No - Discharge Referral Referred to [facility] Med [facility].C[facility] No ATTENDING PHYSICIAN STATEMENT I saw and evaluated the patient. I reviewed the resident's note and discussed the case with the resident. I agree with the resident's findings and plan as documented. SUBJECTIVE: OBJECTIVE: ASSESSMENT AND PLAN:
[2019-12-26] MEDS: VALPROATE SODIUM 500 MG/5 ML VIAL IVPB SCH ×2 (13:27→21:33)
[2019-12-26] MEDS ORDERED: ACYCLOVIR INJECTION 900 MG in DEXTROSE 5%-WATER - 250 ML IVPB SCH (14:00)
--- NOTE | 2019-12-26 14:44 | PN ---
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 (short form) - Note 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: ID CONSULT DICTATED S/P SEIZURES FEVER ? 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
[2019-12-26] MEDS: VANCOMYCIN 1,250 MG in DEXTROSE 5%-WATER - 250 ML IVPB SCH (17:02)
[2019-12-26] MEDS ORDERED: DEXTROSE 5%-WATER 100 ML IVPB ONE (17:05)
[2019-12-26] MEDS: CEFTRIAXONE 2 GM in DEXTROSE 5%-WATER 100 ML IVPB SCH (17:06)
[2019-12-26] MEDS ORDERED: VANCOMYCIN HCL 1,500 MG in DEXTROSE 5%-WATER - 500 ML IVPB SCH (18:00)
[2019-12-26] MEDS ORDERED: VANCOMYCIN HCL 1,500 MG in DEXTROSE 5%-WATER - 250 ML IVPB SCH (18:00)
--- NOTE | 2019-12-26 21:04 | CONS ---
DATE OF CONSULTATION: DATE OF DICTATION: 12/26/2019 INFECTIOUS DISEASE CONSULTATION HISTORY OF PRESENT ILLNESS: A 34-year-old female evaluated for possible meningitis. The patient resides in a senior living facility. She has a history of intellectual delay, traumatic brain injury, bipolar disorder, and diabetes mellitus. She was admitted to the hospital after general seizure activity. The patient required intubation in the emergency room. According to the notes, she had been seen in [facility] ER on December 24, 2019, after a fall. In addition, she was recently diagnosed with COVID-19; additional details are not available. Her course was complicated by fever to 103. She was seen in consultation by neurology, concern was raised about the possibility of meningitis in light of high-grade fever in the setting of seizures. She was empirically treated with vancomycin, ceftriaxone, and acyclovir. PAST MEDICAL HISTORY: As above. LABORATORY DATA: White count 10.7, hematocrit 33.1, platelet count 139, creatinine 0.8. Urinalysis: 64 white cells. Chest x-ray negative for acute infiltrate. PHYSICAL EXAMINATION: General: On exam, she is intubated, sedated, on the ventilator. Vital signs: T-max 103, blood pressure 96/59, pulse 98 regular, respirations 16 per minute. HEENT: Sclerae anicteric. Neck: Supple. Cardiovascular: Heart sounds S1, S2. Lungs: Clear. Abdomen: Soft, obese, nontender. Extremities: Negative for edema. IMPRESSION: 1. Status post status epilepticus. 2. High-grade fever. Unclear source. 3. Rule out meningitis. Source of fever not clear. But considerations include aspiration in the setting of seizures, recurrent or persistent viral infection, primary central nervous system infection, possible though less likely. Agree with spinal tap. Empiric antibiotic coverage with ceftriaxone, vancomycin, and acyclovir. Airborne precautions. COVID-19 PCR. Thank you for the kind referral. SWATI RAYGOZA M.D. YAZAN/[id number]
[2019-12-26] MEDS: SENNOSIDES 8.6MG TABLET (FP) PO SCH (21:33)
[2019-12-26] MEDS: CHLORHEXIDINE GLUCONATE 4% CLEANSER FOR DECOLONIZATION TP SCH (21:33)
[2019-12-26] MEDS: ACYCLOVIR INJECTION 900 MG in DEXTROSE 5%-WATER - 250 ML IVPB SCH (23:10)
[2019-12-27] MEDS: MIDAZOLAM 100 MG in SODIUM CHLORIDE 100 ML IVPB SCH
[2019-12-27] MEDS: PROPOFOL 1,000,000 MCG/100 ML VIAL IVPB SCH (02:50)
[2019-12-27] MEDS ORDERED: DEXTROSE 5%-WATER 100 ML IVPB ONE ×2 (03:22→18:08)
[2019-12-27] MEDS: VANCOMYCIN 1,250 MG in DEXTROSE 5%-WATER - 250 ML IVPB SCH ×2 (03:40→18:06)
[2019-12-27] MEDS: DEXAMETHASONE SOD PHOSPHATE 10 MG/1 ML VIAL IVPUSH SCH ×4 (03:40→21:45)
[2019-12-27] MEDS: INSULIN SLIDING SCALE (NOVOLOG) 1 VIAL SQ SCH ×5 (05:50→22:07)
[2019-12-27] MEDS: CEFTRIAXONE 2 GM in DEXTROSE 5%-WATER 100 ML IVPB SCH ×2 (05:51→18:11)
[2019-12-27] MEDS: VALPROATE SODIUM 500 MG/5 ML VIAL IVPB SCH ×3 (05:51→21:46)
[2019-12-27] MEDS: ACYCLOVIR INJECTION 900 MG in DEXTROSE 5%-WATER - 250 ML IVPB SCH ×3 (05:51→22:35)
[2019-12-27] MEDS ORDERED: MIDAZOLAM IN 0.9 % SOD.CHLORID 1 MG/1 ML PLAST..BAG ONE ×2 (06:22→19:21)
[2019-12-27 06:56] LABS: BASO % 0.2 % (0-2.0); HEMATOCRIT 29.6 % (32.4-45.2); HEMOGLOBIN 9.7 GM/dL (10.7-15.3); LYMPH % 13.5 % (8-40); MCH 30.6 pg (25.7-33.7); MCHC 32.7 g/dl (32.0-36.0); MEAN CELL VOLUME 93.8 fl (80-96); MEAN PLT VOLUME 10.1 fl (7.5-11.1); MONO % 2.3 % (3.8-10.2); PLATELET COUNT 145 K/MM3 (134-434); RBC 3.15 M/mm3 (3.60-5.2); RDW 15.5 % (11.6-15.6)
[2019-12-27 07:21] LABS: ALBUMIN 2.5 g/dl (3.4-5.0); BILIRUBIN,TOTAL 0.3 mg/dL (0.2-1); BLOOD UREA NITROGEN 10.8 mg/dL (7-18); CALCIUM 8.5 mg/dL (8.5-10.1); MAGNESIUM 1.6 mg/dL (1.8-2.4); PHOSPHOROUS 2.6 mg/dL (2.5-4.9); POTASSIUM 3.2 mmol/L (3.5-5.1); TOT PROT 6.2 g/dl (6.4-8.2)
[2019-12-27] MEDS ORDERED: POTASSIUM CHLORIDE TABS 20 MEQ TABLET.ER (FP) PO ONE (08:45)
[2019-12-27 08:46] LABS: N-TERMINAL BNP 4123.9 pg/ml (5-125)
[2019-12-27] MEDS ORDERED: MAGNESIUM SULF 50% (8.12 MEQ/2 ML-1 GM VIAL) IVPB ONE (09:00)
[2019-12-27] MEDS: KCL 10 MEQ IVPB 10 MEQ/100 ML INFUS.BAG IVPB SCH ×3 (09:57→13:09)
[2019-12-27] MEDS: POTASSIUM CHLORIDE TABS 20 MEQ TABLET.ER (FP) PO SCH (10:06)
[2019-12-27] MEDS: MUPIROCIN 2% TOPICAL OINTMENT FOR DECOLONIZATION NS SCH ×2 (10:06→21:46)
[2019-12-27] MEDS: levETIRAcetam 500 MG/5 ML INJECTION VIAL IVPB SCH ×2 (10:07→21:46)
[2019-12-27] MEDS: POLYETHYLENE GLYCOL 3350 255 GM BTL PO SCH (10:07)
[2019-12-27] MEDS: PANTOPRAZOLE SODIUM 40 MG VIAL IVPUSH SCH (10:08)
[2019-12-27] MEDS: MULTIVITAMINS (DAILY MVI) TABLET (FP) PO SCH (10:08)
--- NOTE | 2019-12-27 10:45 | PN ---
Teaching Attending Note Name of Resident: Kane Matta ATTENDING PHYSICIAN STATEMENT I saw and evaluated the patient. I reviewed the resident's note and discussed the case with the resident. I agree with the resident's findings and plan as documented. SUBJECTIVE: Pt seen and exained in the ICU. Remains intubated, sedated. No pressors. OBJECTIVE: Vital Signs Period Temp Pulse Resp BP Sys/Gama Pulse Ox Last 24 Hr 96.9 F-98.2 F 97-122 16-17 96-132/59-84 98-100 Intake & Output 12/24/19 12/25/19 12/26/19 12/27/19 23:59 23:59 23:59 23:59 Intake Total 2821.6 1673 Output Total 1470 700 Balance 1351.6 973 Weight 110 kg 89.811 kg 89.5 kg Gen: intubated, sedated Neck: supple Heart: RRR Lung: decreased breath sounds at the bases Abd: soft, nontender Ext: no edema CBC, BMP 12/27/19 06:45 12/27/19 06:45 Active Medications Chlorhexidine Gluconate (Hibiclens For Decolonization -) 1 applic TP HS CARL Last Admin: 12/26/19 21:33 Dose: 1 applic Documented by: Dexamethasone Sodium Phosphate (Decadron Injection -) 10 mg IVPUSH Q6H-IV CARL Stop: 12/29/19 23:59 Last Admin: 12/27/19 09:00 Dose: 10 mg Documented by: Midazolam HCl 100 mg/ Sodium (Chloride) 100 mls @ 1 mls/hr IVPB TITR CARL; Protocol Last Titration: 12/27/19 08:00 Dose: 5 mg/hr, 5 mls/hr Documented by: Propofol (Diprivan -) 1,000,000 mcg in 100 mls @ 3.3 mls/hr IVPB TITR CARL; Protocol Last Titration: 12/27/19 07:59 Dose: 30 mcg/kg/min, 19.8 mls/hr Documented by: Ceftriaxone Sodium 2 gm/ (Dextrose) 100 mls @ 200 mls/hr IVPB 0600,1800 CARL; Protocol Last Admin: 12/27/19 05:51 Dose: 200 mls/hr Documented by: Sodium Chloride (Normal Saline -) 1,000 mls @ 75 mls/hr IV ASDIR CARL Last Admin: 12/26/19 13:00 Dose: 75 mls/hr Documented by: Vancomycin HCl 1,250 mg/ (Dextrose) 250 mls @ 166.667 mls/hr IVPB Q12H [facility]; Protocol Last Admin: 12/27/19 03:40 Dose: 166.667 mls/hr Documented by: Acyclovir 900 mg/ Dextrose 268 mls @ 268 mls/hr IVPB 0600,1400,2200 [facility] Last Admin: 12/27/19 05:51 Dose: 268 mls/hr Documented by: Potassium Chloride (Potassium Chloride 10 Meq Premix Ivpb -) 10 meq in 100 mls @ 100 mls/hr IVPB Q60M [facility] Stop: 12/27/19 12:29 Last Admin: 12/27/19 10:39 Dose: 100 mls/hr Documented by: Insulin Aspart (Novolog Vial Sliding Scale -) 1 vial SQ ACHS [facility]; Protocol Last Admin: 12/27/19 07:11 Dose: 2 units Documented by: Levetiracetam (Keppra Injection -) 1,500 mg IVPB BID [facility] Last Admin: 12/27/19 10:07 Dose: 1,500 mg Documented by: Multivitamins/Minerals/Vitamin C (Tab-A-Vit -) 1 tab PO DAILY [facility] Last Admin: 12/27/19 10:08 Dose: 1 tab Documented by: Mupirocin (Bactroban Ointment (For Decolonization) -) 1 applic NS BID [facility] Stop: 12/31/19 09:59 Last Admin: 12/27/19 10:06 Dose: 1 applic Documented by: Nystatin (Mycostatin Cream -) 1 applic TP DAILY [facility] Pantoprazole Sodium (Protonix Iv) 40 mg IVPUSH DAILY [facility] Last Admin: 12/27/19 10:08 Dose: 40 mg Documented by: Polyethylene Glycol (Miralax (For Bowel Prep) -) 17 gm PO DAILY [facility] Last Admin: 12/27/19 10:07 Dose: 17 grams Documented by: Potassium Chloride (K-Dur -) 20 meq PO DAILY [facility] Last Admin: 12/27/19 10:06 Dose: Not Given Documented by: Senna (Senna -) 2 tab PO HS [facility] Last Admin: 12/26/19 21:33 Dose: 2 tab Documented by: Valproate Sodium (Depacon Injection -) 1,500 mg IVPB TID [facility] Last Admin: 12/27/19 05:51 Dose: 1,500 mg Documented by: ASSESSMENT AND PLAN: Status Epilepticus Acute Respiratory Failure UTI r/o Meningitis r/o Bacteremia Sepsis +Troponins likely Demand Ischemia Recent COVID19 Bipolar Disorder Mental Retardation DM h/o TBI h/o DVT Anemia - antiepileptics per neuro - continue antibiotics, steroids - f/u cultures - repeat blood cultures - will attempt LP - IVF - monitor urine output, creatinine - hold sedation in AM to assess mental status - resume anticoagulation after LP - enteral feeds - DVT/GI prophylaxis - continue ICU monitoring critical care time spent in reviewing chart, evaluating patient and formulating plan 35 min
[2019-12-27] MEDS ORDERED: PT OWN MED DRAWER 7, Y5N ONE ×3 (10:48→22:18)
[2019-12-27] MEDS: NYSTATIN 100,000 UNIT/GM TOPICAL CREAM 15 GM TUBE TP SCH (10:50)
--- NOTE | 2019-12-27 12:19 | ECHO ---
Name: AVELINA JACQUES Exam:Adult Echocardiogram Study Date: 12/27/2019 08:24 AM Age: 34 yrs Reason For Study: LV Function Height: 66 in Weight: 197 lb BSA: 2.0 m2 BP: 100/62 mmHg MMode/2D Measurements & Calculations IVSd: 0.70 cm Ao root diam: 2.8 cm LVIDd: 2.8 cm LA dimension: 2.1 cm LVIDs: 2.0 cm LVPWd: 0.84 cm EDV(Teich): 29.8 ml LVOT diam: 2.0 cm ESV(Teich): 12.1 ml Doppler Measurements & Calculations MV E max jayjay: 58.1 cm/sec Ao V2 max: 110.3 cm/sec MV A max jayjay: 72.4 cm/sec Ao max P.9 mmHg MV E/A: 0.80 MV dec time: 0.06 sec KELLY(V,D): 2.6 cm2 LV V1 max P.4 mmHg TR max jayjay: 227.7 cm/sec LV V1 max: 91.6 cm/sec TR max P.7 mmHg PA V2 max: 110.3 cm/sec Med Peak E' Jayjay: 4.3 cm/sec PA max P.9 mmHg Med E/e': 13.6 Lat Peak E' Jayjay: 13.6 cm/sec Lat E/e': 4.3 Procedure A complete two-dimensional transthoracic echocardiogram was performed (2D, M-mode, Doppler and color flow Doppler). Left Ventricle The left ventricular size, thickness and function are normal. Ejection Fraction = 55-60%. The left ve ntricular wall motion is normal. Right Ventricle The right ventricle is normal in size and function. Atria Normal left and right atrial size and function. Mitral Valve There is no mitral regurgitation noted. Tricuspid Valve There is trace tricuspid regurgitation. Right ventricular systolic pressure is normal. Aortic Valve No hemodynamically significant valvular aortic stenosis. No aortic regurgitation is present. Pulmonic Valve There is no pulmonic valvular regurgitation. Great Vessels The aortic root is normal size. Pericardium/Pleura There is no pericardial effusion. Interpretation Summary The left ventricular size, thickness and function are normal The right ventricle is normal in size and function. There is trace tricuspid regurgitation. MD Anoop Carrillo 12/27/2019 12:19 PM
--- NOTE | 2019-12-27 13:38 | PN ---
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, Physician History of Present Illness: SEDATED ON VENTILATOR NO SEIZURES REPORTED AFEBRILE BC GPCCL X 1 URINE C/S NLF - Current Medication List Current Medications: Active Medications Chlorhexidine Gluconate (Hibiclens For Decolonization -) 1 applic TP HS CARL Last Admin: 12/26/19 21:33 Dose: 1 applic Documented by: Dexamethasone Sodium Phosphate (Decadron Injection -) 10 mg IVPUSH Q6H-IV CARL Stop: 12/29/19 23:59 Last Admin: 12/27/19 09:00 Dose: 10 mg Documented by: Midazolam HCl 100 mg/ Sodium (Chloride) 100 mls @ 1 mls/hr IVPB TITR [facility]; Protocol Last Titration: 12/27/19 08:00 Dose: 5 mg/hr, 5 mls/hr Documented by: Propofol (Diprivan -) 1,000,000 mcg in 100 mls @ 3.3 mls/hr IVPB TITR [facility]; Protocol Last Titration: 12/27/19 13:22 Dose: 30 mcg/kg/min, 19.8 mls/hr Documented by: Ceftriaxone Sodium 2 gm/ (Dextrose) 100 mls @ 200 mls/hr IVPB 0600,1800 [facility]; Protocol Last Admin: 12/27/19 05:51 Dose: 200 mls/hr Documented by: Sodium Chloride (Normal Saline -) 1,000 mls @ 75 mls/hr IV ASDIR CARL Last Admin: 12/26/19 13:00 Dose: 75 mls/hr Documented by: Vancomycin HCl 1,250 mg/ (Dextrose) 250 mls @ 166.667 mls/hr IVPB Q12H [facility]; Protocol Last Admin: 12/27/19 03:40 Dose: 166.667 mls/hr Documented by: Acyclovir 900 mg/ Dextrose 268 mls @ 268 mls/hr IVPB 0600,1400,2200 [facility] Last Admin: 12/27/19 05:51 Dose: 268 mls/hr Documented by: Insulin Aspart (Novolog Vial Sliding Scale -) 1 vial SQ ACHS [facility]; Protocol Last Admin: 12/27/19 10:46 Dose: Not Given Documented by: Levetiracetam (Keppra Injection -) 1,500 mg IVPB BID [facility] Last Admin: 12/27/19 10:07 Dose: 1,500 mg Documented by: Multivitamins/Minerals/Vitamin C (Tab-A-Vit -) 1 tab PO DAILY [facility] Last Admin: 12/27/19 10:08 Dose: 1 tab Documented by: Mupirocin (Bactroban Ointment (For Decolonization) -) 1 applic NS BID [facility] Stop: 12/31/19 09:59 Last Admin: 12/27/19 10:06 Dose: 1 applic Documented by: Nystatin (Mycostatin Cream -) 1 applic TP DAILY [facility] Last Admin: 12/27/19 10:50 Dose: 1 applic Documented by: Pantoprazole Sodium (Protonix Iv) 40 mg IVPUSH DAILY [facility] Last Admin: 12/27/19 10:08 Dose: 40 mg Documented by: Polyethylene Glycol (Miralax (For Bowel Prep) -) 17 gm PO DAILY [facility] Last Admin: 12/27/19 10:07 Dose: 17 grams Documented by: Potassium Chloride (K-Dur -) 20 meq PO DAILY [facility] Last Admin: 12/27/19 10:06 Dose: Not Given Documented by: Senna (Senna -) 2 tab PO HS [facility] Last Admin: 12/26/19 21:33 Dose: 2 tab Documented by: Valproate Sodium (Depacon Injection -) 1,500 mg IVPB TID [facility] Last Admin: 12/27/19 05:51 Dose: 1,500 mg Documented by: - Objective Vital Signs: Vital Signs Temperature 96.5 F L 12/27/19 10:00 Pulse Rate 88 12/27/19 10:00 Respiratory Rate 18 12/27/19 12:15 Blood Pressure 91/53 L 12/27/19 10:00 O2 Sat by Pulse Oximetry (%) 99 12/27/19 12:15 Constitutional: Yes: No Distress Eyes: Yes: Conjunctiva Clear Neck: Yes: Supple Cardiovascular: Yes: Regular Rate and Rhythm, S1, S2 Respiratory: Yes: Mechanically Ventilated Gastrointestinal: Yes: Normal Bowel Sounds, Soft, Abdomen, Obese. No: Tenderness Edema: Yes Labs: CBC, BMP 12/27/19 06:45 12/27/19 06:45 INR, PTT INR 1.41 (0.83-1.09) H 12/26/19 01:16 Assessment/Plan S/P SEIZURES RESP FAILURE ?MENINGITIS + BC GPCCL UTI AWAITING CONSENT FOR LP CONTINUE VANCOMYCIN/ CEFTRIAXONE/ ACV CHECK BC, VANCOMYCIN TROUGH
--- NOTE | 2019-12-27 14:17 | PN ---
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, Physician Chief Complaint: The patient remains intubated and sedated. No acute distress. Telemetry reviewed, it showed sinus rhythm in 90s. No arrhythmia noted. History of Present Illness: 34 year-old woman, NHR, with a PMHx of DM, DVT on Eliquis, traumatic brain injury, bipolar disorder and seizure 12/24/19 brought to ED 12/25/19 from [facility] for seizure-like activities She was found to have elevated troponin I (3.35 -> 2.36) and BNP (6399). CK is going up: 332 ->1464. She has no recurrent seizure after arrival in ICU. ECG 12/26/19: sinus tachycardia at 145 BPM. RAD. Lateral T wave abnormalities. Echo 12/27/19: Normal LV size, wall motion and systolic function. LVEF = 55-60%. Normal RV. Normal LA and RA in size. No significant valvular abnormalities. - Current Medication List Current Medications: Active Medications Chlorhexidine Gluconate (Hibiclens For Decolonization -) 1 applic TP HS [facility]L Last Admin: 12/26/19 21:33 Dose: 1 applic Documented by: Dexamethasone Sodium Phosphate (Decadron Injection -) 10 mg IVPUSH Q6H-IV [facility] Stop: 12/29/19 23:59 Last Admin: 12/27/19 09:00 Dose: 10 mg Documented by: Midazolam HCl 100 mg/ Sodium (Chloride) 100 mls @ 1 mls/hr IVPB TITR [facility]; Protocol Last Titration: 12/27/19 08:00 Dose: 5 mg/hr, 5 mls/hr Documented by: Propofol (Diprivan -) 1,000,000 mcg in 100 mls @ 3.3 mls/hr IVPB TITR [facility]; Protocol Last Titration: 12/27/19 13:22 Dose: 30 mcg/kg/min, 19.8 mls/hr Documented by: Ceftriaxone Sodium 2 gm/ (Dextrose) 100 mls @ 200 mls/hr IVPB 0600,1800 [facility]; Protocol Last Admin: 12/27/19 05:51 Dose: 200 mls/hr Documented by: Sodium Chloride (Normal Saline -) 1,000 mls @ 75 mls/hr IV ASDIR [facility]L Last Admin: 12/26/19 13:00 Dose: 75 mls/hr Documented by: Vancomycin HCl 1,250 mg/ (Dextrose) 250 mls @ 166.667 mls/hr IVPB Q12H [facility]; Protocol Last Admin: 12/27/19 03:40 Dose: 166.667 mls/hr Documented by: Acyclovir 900 mg/ Dextrose 268 mls @ 268 mls/hr IVPB 0600,1400,2200 [facility]L Last Admin: 12/27/19 05:51 Dose: 268 mls/hr Documented by: Insulin Aspart (Novolog Vial Sliding Scale -) 1 vial SQ ACHS [facility]; Protocol Last Admin: 12/27/19 10:46 Dose: Not Given Documented by: Levetiracetam (Keppra Injection -) 1,500 mg IVPB BID [facility] Last Admin: 12/27/19 10:07 Dose: 1,500 mg Documented by: Multivitamins/Minerals/Vitamin C (Tab-A-Vit -) 1 tab PO DAILY [facility] Last Admin: 12/27/19 10:08 Dose: 1 tab Documented by: Mupirocin (Bactroban Ointment (For Decolonization) -) 1 applic NS BID [facility] Stop: 12/31/19 09:59 Last Admin: 12/27/19 10:06 Dose: 1 applic Documented by: Nystatin (Mycostatin Cream -) 1 applic TP DAILY [facility] Last Admin: 12/27/19 10:50 Dose: 1 applic Documented by: Pantoprazole Sodium (Protonix Iv) 40 mg IVPUSH DAILY [facility] Last Admin: 12/27/19 10:08 Dose: 40 mg Documented by: Polyethylene Glycol (Miralax (For Bowel Prep) -) 17 gm PO DAILY [facility] Last Admin: 12/27/19 10:07 Dose: 17 grams Documented by: Potassium Chloride (K-Dur -) 20 meq PO DAILY [facility] Last Admin: 12/27/19 10:06 Dose: Not Given Documented by: Senna (Senna -) 2 tab PO HS [facility] Last Admin: 12/26/19 21:33 Dose: 2 tab Documented by: Valproate Sodium (Depacon Injection -) 1,500 mg IVPB TID [facility] Last Admin: 12/27/19 05:51 Dose: 1,500 mg Documented by: - Objective Vital Signs: Vital Signs Temperature 98.6 F 12/27/19 14:00 Pulse Rate 93 H 12/27/19 14:00 Respiratory Rate 16 12/27/19 14:00 Blood Pressure 107/60 12/27/19 14:00 O2 Sat by Pulse Oximetry (%) 99 12/27/19 12:15 General: Well developed. Obese. Intubated and sedated. Head: Normocephalic. Atraumatic, Heart: Normal S1, S2: Regular rhythm and tachyardia. Lungs: Symmetrical coarse BS. Abdomen: Soft. Bowel sound positive. Extremities: No edema. No clubbing or cyanosis. PD 2+, equal bilaterally. Labs: CBC, BMP 12/27/19 06:45 12/27/19 06:45 INR, PTT INR 1.41 (0.83-1.09) H 12/26/19 01:16 Assessment/Plan 34 year-old woman, NHR, with a PMHx of DM, DVT on Eliquis, traumatic brain injury, bipolar disorder and seizure 12/24/19 brought to ED 12/25/19 from [facility] for seizure-like activities She was found to have elevated troponin I (3.35 -> 2.36) and BNP (6399). CK is going up: 332 ->1464. She has no recurrent seizure after arrival in ICU. ECG 12/26/19: sinus tachycardia at 145 BPM. RAD. Lateral T wave abnormalities. Echo 12/27/19: Normal LV size, wall motion and systolic function. LVEF = 55-60%. Normal RV. Normal LA and RA in size. No significant valvular abnormalities. 1) Elevated troponin I, likely demand ischemia due to rapid heart beats during status epilepticus. Unlikely acute coronary syndrome. Echocardiogram shows normal LV wall motion and systolic function. 2) Elevated BNP is likely due to dynamic change in the intrathoracic pressure with mechanical ventilation. Elevated BNP should gradually decrease. It also increases after extubation and then gradually decreases according to literature reports. 3) Conservative cardiac care for now and no further cardiac test recommended at this time. Please do not hesitate to call us for reconsult at any time if any further questions or additional issue arises regarding this patient.
--- NOTE | 2019-12-27 15:36 | PN ---
Physical Exam: SUBJECTIVE: Patient seen and examined. Pt currently sedated and ventilated. On Versed and propofol. Hx of bipolar. Recent hx of [facility] admission for seizure/fall. OBJECTIVE: Vital Signs Period Temp Pulse Resp BP Sys/Gama Pulse Ox Last 24 Hr 96.5 F-98.6 F 88-122 16-18 91-132/53-84 98-100 GENERAL: sedated, intubated, on ventilator, obese HEENT: ETT in place, no e/o facial or head trauma, no blood from ETT, no acute oropharyngeal ulcerations, PERRL NECK/BACK: no obvious neck hematoma or other trauma CARDIOVASCULAR: regular rhythm and tachycardic, no MGR, strong peripheral pulses, lukewarm extremities LUNGS/RESPIRATORY: breath sounds coarse but no focal area of decreased sounds GI/ABDOMEN: symmetric, atraumatic outwardly : Altman in place, normal external appearance MSK/EXTREMITIES: no evidence of acute trauma DERM/SKIN: dry, no jaundice, no rash, no pathologic-appearing bruising NEUROLOGICAL: unable to assess A/O given that the patient is sedated, +brainstem reflexes, patient is otherwise unable to participate in exam Laboratory Results - last 24 hr 12/25/19 12/26/19 12/26/19 23:18 01:10 16:58 WBC RBC Hgb Hct MCV MCH MCHC RDW Plt Count MPV Absolute Neuts (auto) Neutrophils % Lymphocytes % Monocytes % Eosinophils % Basophils % Nucleated RBC % Sodium Potassium Chloride Carbon Dioxide Anion Gap BUN Creatinine Est GFR (CKD-EPI)AfAm Est GFR (CKD-EPI)NonAf POC Glucometer 96 179 Random Glucose Calcium Phosphorus Magnesium Total Bilirubin AST ALT Alkaline Phosphatase Creatine Kinase Creatine Kinase Index CK-MB (CK-2) B-Natriuretic Peptide Total Protein Albumin COVID-19 (ABBY) Not detected 12/27/19 12/27/19 12/27/19 03:15 05:27 06:45 WBC 11.0 H RBC 3.15 L Hgb 9.7 L Hct 29.6 L MCV 93.8 MCH 30.6 MCHC 32.7 RDW 15.5 Plt Count 145 MPV 10.1 Absolute Neuts (auto) 9.3 H Neutrophils % 84.0 H D Lymphocytes % 13.5 D Monocytes % 2.3 L D Eosinophils % 0.0 D Basophils % 0.2 Nucleated RBC % 0 Sodium Potassium Chloride Carbon Dioxide Anion Gap BUN Creatinine Est GFR (CKD-EPI)AfAm Est GFR (CKD-EPI)NonAf POC Glucometer 128 172 Random Glucose Calcium Phosphorus Magnesium Total Bilirubin AST ALT Alkaline Phosphatase Creatine Kinase Creatine Kinase Index CK-MB (CK-2) B-Natriuretic Peptide Total Protein Albumin COVID-19 (ABBY) 12/27/19 12/27/19 06:45 10:43 WBC RBC Hgb Hct MCV MCH MCHC RDW Plt Count MPV Absolute Neuts (auto) Neutrophils % Lymphocytes % Monocytes % Eosinophils % Basophils % Nucleated RBC % Sodium 144 Potassium 3.2 L Chloride 112 H Carbon Dioxide 22 Anion Gap 11 BUN 10.8 Creatinine 1.0 Est GFR (CKD-EPI)AfAm 86.33 Est GFR (CKD-EPI)NonAf 74.49 POC Glucometer 145 Random Glucose 174 H Calcium 8.5 Phosphorus 2.6 Magnesium 1.6 L Total Bilirubin 0.3 AST 24 ALT 16 Alkaline Phosphatase 74 Creatine Kinase 723 H Creatine Kinase Index 0.1 CK-MB (CK-2) 1.3 B-Natriuretic Peptide 4123.9 H Total Protein 6.2 L Albumin 2.5 L COVID-19 (ABBY) Active Medications Generic Name Dose Route Start Last Admin Trade Name Freq PRN Reason Stop Dose Admin Chlorhexidine Gluconate 1 applic 12/26/19 22:00 12/26/19 21:33 Hibiclens For Decolonization - TP 1 applic HS CARL Administration Dexamethasone Sodium Phosphate 10 mg 12/26/19 10:00 12/27/19 15:24 Decadron Injection - IVPUSH 12/29/19 23:59 10 mg Q6H-IV [facility]L Administration Midazolam HCl 100 mg/ Sodium 100 mls @ 1 mls/hr 12/25/19 23:45 12/27/19 08:00 Chloride IVPB 5 mg/hr TITR [facility] 5 mls/hr Titration Protocol 1 MG/HR Propofol 1,000,000 mcg in 100 mls @ 3.3 mls/hr 12/26/19 01:30 12/27/19 13:22 Diprivan - IVPB 30 mcg/kg/min TITR [facility] 19.8 mls/hr Titration Protocol 5 MCG/KG/MIN Ceftriaxone Sodium 2 gm/ 100 mls @ 200 mls/hr 12/26/19 18:00 12/27/19 05:51 Dextrose IVPB 200 mls/hr 0600,1800 CARL Administration Protocol Sodium Chloride 1,000 mls @ 75 mls/hr 12/26/19 12:30 12/26/19 13:00 Normal Saline - IV 75 mls/hr ASDIR CARL Administration Vancomycin HCl 1,250 mg/ 250 mls @ 166.667 mls/hr 12/26/19 15:00 12/27/19 03:40 Dextrose IVPB 166.667 mls/hr Q12H [facility] Administration Protocol Acyclovir 900 mg/ Dextrose 268 mls @ 268 mls/hr 12/26/19 22:00 12/27/19 15:24 IVPB 268 mls/hr 0600,1400,2200 CARL Administration Insulin Aspart 1 vial 12/26/19 11:00 12/27/19 10:46 Novolog Vial Sliding Scale - SQ Not Given ACHS [facility] Protocol Levetiracetam 1,500 mg 12/26/19 11:15 12/27/19 10:07 Keppra Injection - IVPB 1,500 mg BID [facility] Administration Multivitamins/Minerals/Vitamin C 1 tab 12/27/19 10:00 12/27/19 10:08 Tab-A-Vit - PO 1 tab DAILY [facility] Administration Mupirocin 1 applic 12/26/19 10:00 12/27/19 10:06 Bactroban Ointment (For Decolonization) - NS 12/31/19 09:59 1 applic BID [facility] Administration Nystatin 1 applic 12/27/19 10:00 12/27/19 10:50 Mycostatin Cream - TP 1 applic DAILY [facility] Administration Pantoprazole Sodium 40 mg 12/26/19 11:00 12/27/19 10:08 Protonix Iv IVPUSH 40 mg DAILY [facility] Administration Polyethylene Glycol 17 gm 12/27/19 10:00 12/27/19 10:07 Miralax (For Bowel Prep) - PO 17 grams DAILY [facility] Administration Potassium Chloride 20 meq 12/27/19 10:00 12/27/19 10:06 K-Dur - PO Not Given DAILY [facility] Senna 2 tab 12/26/19 22:00 12/26/19 21:33 Senna - PO 2 tab HS [facility] Administration Valproate Sodium 1,500 mg 12/26/19 14:00 12/27/19 15:23 Depacon Injection - IVPB 1,500 mg TID [facility] Administration ASSESSMENT/PLAN: 34YOF with h/o epilepsy, prior TBI, on eliquis, who p/w status epilepticus in the setting of recent visit to [facility] for seizure with head injury from fall with normal initial HCT at that time (12/24/19). Also found febrile tonight. #NEURO/PSYCH: Status epilepticus, h/o TBI- [facility] unsure of when. MR/DD CT: s/p craniotomy, encephalomalacia noted, no hemorrhage 1500 mg Keppra BID + [address] Shay following in consult for Neurology R/o Meningitis Cont Ceftriaxone, vancomycin, acyclovir, dexamethasone LP consent in chart for today On versed, Prop Baseline mental status- bed bound, hallucination, confused #CV Prolonged QTc, sinus tachycardia, troponinemia trending down BNP elevated- will monitor, r/p BNP Avoid QT prolonging medications Consulted Cardio Dr. Lui- pending Eliquis BID started by [facility] for dvt ppx ECHO ordered #Pulm Intubated- 16/450/40/5 COVID neg Pt discharged in september to [facility] from [place] for Acute hypoxic resp failure 08/18 to COVID+ #ENDOCRINE: Stable Monitor #GI NPO #RENAL/ Monitor #HEME: -Monitor #ID: R/o Possible meningitis/encephalitis? Ceftriaxone 2 g Q12 Vancomycin 1500 mg Q12 Acyclovir 900 mg Q8H dexamethasone 10 mg Q6 BCx pending, UCx pending ID consulted LP today #DERM: Stable -Monitor IO placed from ED? Removed in ICU #Lines RIJ 12/25 FEN: IVF at 77 start feeds after LP monitor lytes Prophylaxis: -DVT: HOLD Eliquis and heparin until cardiology weighs in -GI: protonix Code Status/Family Conversation: Full Code (per [facility] paperwork) Dispo: cont ICU monitoring, cont abx, antiepileptics Brother Lars Busby at the number in [facility] paperwork ([phone]) Brother on [place] paperwork ([phone]), reached patient's uncle Abdoul Busby, got updated number for brother Eric. Schreiber ([phone]) Visit type - Emergency Visit Emergency Visit: Yes ED Registration Date: 12/25/19 Care time: The patient presented to the Emergency Department on the above date and was hospitalized for further evaluation of their emergent condition. - New Patient This patient is new to me today: Yes Date on this admission: 01/01/20 - Critical Care Critical Care patient: No - Discharge Referral Referred to [facility] Med [facility] No ATTENDING PHYSICIAN STATEMENT I saw and evaluated the patient. I reviewed the resident's note and discussed the case with the resident. I agree with the resident's findings and plan as documented. SUBJECTIVE: OBJECTIVE: ASSESSMENT AND PLAN:
[2019-12-27] MEDS ORDERED: ALTEPLASE 2 MG VIAL NR ONE (15:51)
[2019-12-27] MEDS ORDERED: ALTEPLASE 2 MG VIAL CVP ONE (16:30)
--- NOTE | 2019-12-27 17:29 | PROC ---
Lumbar Puncture Indication: r/o meningitis Risks and Benefits Explained: Yes Consent on Chart: Yes Sterile Technique: Yes Skin prep: Betadine Position: Left lateral decubitus Site: L3-L4 Local Anesthesia: 1% Lidocaine with epi Opening Pressure(mmHg): 17 CSF Color, Appearance: Clear Sterile Dressing Applied: Yes
[2019-12-27] MEDS ORDERED: SODIUM CHLORIDE 500 ML IV STA (19:06)
[2019-12-27 19:14] LABS: CSF APPEARANCE CLEAR; CSF COLOR COLORLESS; CSF WBC 1
[2019-12-27 19:19] LABS: CSF APPEARANCE CLEAR; CSF COLOR COLORLESS; CSF WBC 1
[2019-12-27 19:47] LABS: BF GLUCOSE (CSF ONLY) 94 mg/dL (40-70)
[2019-12-27] MEDS: CHLORHEXIDINE GLUCONATE 4% CLEANSER FOR DECOLONIZATION TP SCH (21:46)
[2019-12-27] MEDS: SODIUM CHLORIDE 1,000 ML IV SCH (21:46)
[2019-12-27] MEDS: SENNOSIDES 8.6MG TABLET (FP) PO SCH (21:46)
--- NOTE | 2019-12-27 22:15 | PN ---
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 (short form) - Note 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: 34 year old female [place] resident, history of TBI, , on eliquis for DVT, DM, Bipolar disorder. patient has only one seizure in past and was not on any AED inpast. Patietn has been on antipsychotic medicaiton and on depakote for behavior difficulty. Patient was treated with versed and itubated. Patient was treated for meningitis empirically. No seizure since december 25, sedated and intubated. would follow up on eeg and spinal tap done and wbc is 1, protein is 90 NEUROLOGICAL EXAMINATION ibtubated and sedated, neck is spple pupils reactive no seizure activity was seen limited neuro exam brain stem reflex, corneal, pupils reflex are present ct head showed right frontal lobe encephalomalacia spinal tap done wbc is 1 , and protein 90 ( less likely to be mningitis based upon ressults) Assessment/Plan 34 year old female [place] resident, history of TBIMD , on eliquis for DVT, DM, Bipolar disorder. She is on multiple psych medicaiton including antidepressant and antipsychotic medicaiton , and depakote. Patient has only one seizur ein past. Ct head showed encephalomalacia, and came with status epilepiticuts, sedated and intubated . csf has low wbc and unlikley to be meningitis Continue depakote 1500 iv tid ( as taking at [place]) and Keppra 1500 mg iv bid - hold psych medication, would follow up on eeg - mri of brain once stab;e - pateint was covid positive 1-2 weeks ago, - spent 35 minute critical time Thanking you so much Gonsalo Shay MD
[2019-12-28] MEDS: PROPOFOL 1,000,000 MCG/100 ML VIAL IVPB SCH ×4 (01:50→21:00)
[2019-12-28] MEDS: MIDAZOLAM 100 MG in SODIUM CHLORIDE 100 ML IVPB SCH ×2 (01:50→16:46)
[2019-12-28] MEDS ORDERED: DEXTROSE 5%-WATER 100 ML IVPB ONE ×4 (03:26→21:49)
[2019-12-28] MEDS: DEXAMETHASONE SOD PHOSPHATE 10 MG/1 ML VIAL IVPUSH SCH ×2 (03:31→09:14)
[2019-12-28] MEDS: VANCOMYCIN 1,250 MG in DEXTROSE 5%-WATER - 250 ML IVPB SCH (03:32)
[2019-12-28] MEDS: ACYCLOVIR INJECTION 900 MG in DEXTROSE 5%-WATER - 250 ML IVPB SCH (06:20)
[2019-12-28] MEDS: VALPROATE SODIUM 500 MG/5 ML VIAL IVPB SCH ×3 (06:20→21:50)
[2019-12-28] MEDS: CEFTRIAXONE 2 GM in DEXTROSE 5%-WATER 100 ML IVPB SCH (06:20)
[2019-12-28] MEDS ORDERED: PT OWN MED DRAWER 7, Y5N ONE ×2 (06:23→09:06)
[2019-12-28] MEDS: INSULIN SLIDING SCALE (NOVOLOG) 1 VIAL SQ SCH ×4 (06:25→21:50)
[2019-12-28 06:51] LABS: ARTERIAL BLD GAS O2 SATURATION 98.5 % (95-98); ARTERIAL BLOOD GAS BASE EXCESS -1.2 mmol/L (-2-2); ARTERIAL BLOOD GAS PO2 110.5 mmHg (80-100); ARTERIAL BLOOD GAS pH 7.51 (7.35-7.45)
[2019-12-28 06:52] LABS: ALLENS TEST POSITIVE
[2019-12-28 07:22] LABS: BASO % 0.1 % (0-2.0); HEMATOCRIT 26.5 % (32.4-45.2); HEMOGLOBIN 8.7 GM/dL (10.7-15.3); LYMPH % 11.4 % (8-40); MCH 30.8 pg (25.7-33.7); MCHC 32.9 g/dl (32.0-36.0); MEAN CELL VOLUME 93.7 fl (80-96); MEAN PLT VOLUME 9.9 fl (7.5-11.1); MONO % 3.8 % (3.8-10.2); NEUT % 84.7 % (42.8-82.8); PLATELET COUNT 122 K/MM3 (134-434); RBC 2.83 M/mm3 (3.60-5.2); RDW 15.3 % (11.6-15.6); WHITE BLOOD COUNT 8.3 K/mm3 (4.0-10.0)
[2019-12-28 07:45] LABS: ALBUMIN 2.3 g/dl (3.4-5.0); BILIRUBIN,TOTAL 0.2 mg/dL (0.2-1); BLOOD UREA NITROGEN 9.5 mg/dL (7-18); CREATININE 0.9 mg/dL (0.55-1.3); MAGNESIUM 2.2 mg/dL (1.8-2.4); PHOSPHOROUS 3.9 mg/dL (2.5-4.9); TOT PROT 5.7 g/dl (6.4-8.2)
[2019-12-28] MEDS: levETIRAcetam 500 MG/5 ML INJECTION VIAL IVPB SCH ×2 (09:14→21:50)
[2019-12-28] MEDS: PANTOPRAZOLE SODIUM 40 MG VIAL IVPUSH SCH (09:15)
[2019-12-28] MEDS: MULTIVITAMINS (DAILY MVI) TABLET (FP) PO SCH (09:15)
[2019-12-28] MEDS: ASCORBIC ACID 500 MG TABLET (FP) PO SCH ×2 (09:15→21:50)
[2019-12-28] MEDS: MUPIROCIN 2% TOPICAL OINTMENT FOR DECOLONIZATION NS SCH ×2 (09:40→21:52)
[2019-12-28] MEDS: NYSTATIN 100,000 UNIT/GM TOPICAL CREAM 15 GM TUBE TP SCH (09:40)
[2019-12-28] MEDS: POLYETHYLENE GLYCOL 3350 255 GM BTL PO SCH (09:49)
[2019-12-28] MEDS: POTASSIUM CHLORIDE TABS 20 MEQ TABLET.ER (FP) PO SCH (09:50)
[2019-12-28] MEDS ORDERED: ZINC SULFATE 220 MG CAPSULE (FP) PO SCH (10:00)
--- NOTE | 2019-12-28 10:07 | PN ---
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 (short form) - Note 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: ID followup chart reviewed intubated and sedated admitted with seizures from [facility] required intubation had a fever in ER while seizing started on empiric antibiotics 12/25 for meningitis (felt to be low probability) LLP performed yesterday with 1 wbc- not c/w bacterial meningitis Vital Signs Period Temp Pulse Resp BP Sys/Gama Pulse Ox Last 24 Hr 95.8 F-99.2 F 75-98 16-18 97-127/45-71 98-100 neck supple cor-rrr lungs clear abd soft,nt ext no edema skin intact CBC, BMP 12/28/19 06:00 12/28/19 06:00 cxray no infiltrate Microbiology 12/25/19 23:59 Blood - Peripheral Venous Blood Culture - Preliminary Staphylococcus Coagulase Neg 12/25/19 23:59 Blood - Peripheral Venous Blood Culture - Preliminary NO GROWTH OBTAINED AFTER 48 HOURS, INCUBATION TO CONTINUE FOR 3 DAYS. 12/27/19 17:30 Cerebral Spinal Fluid - Lumbar Puncture Gram Stain - Preliminary-negative 12/26/19 01:29 Urine - Urine - Catheterized Urine Culture - Preliminary Non Lactose Fermenting [id number] a/p s/p seizures-history of TBI, history of craniotomy intubated for airway protection no evidence of meningitis blood cultures coag neg staph one bottle- contaminant d/c vancomycin, d/c acyclovir, d/c rocephin zosyn for possible aspiration pneumonia not sure why she is on decadron- if for meningitis- can d/c d/w coordinating producer d/w icu over 35 minutes spent in the care of this critically ill icu patient
[2019-12-28] MEDS ORDERED: POTASSIUM CHLORIDE ORAL LIQUID 20 MEQ/15 ML NGT ONE (11:59)
[2019-12-28] MEDS ORDERED: PIPERACILLIN/TAZOBACTAM 4.5 GM VIAL IVPB ONE ×3 (12:12→21:49)
[2019-12-28] MEDS: KCL 10 MEQ IVPB 10 MEQ/100 ML INFUS.BAG IVPB SCH ×2 (12:13→13:27)
[2019-12-28] MEDS: PIPERACILLIN/TAZOB 4.5 GM 4.5 GM in DEXTROSE 5%-WATER 100 ML IVPB SCH ×2 (12:14→18:17)
[2019-12-28] MEDS: DEXTROSE 5%-0.45% SALINE 1,000 ML IV SCH (12:14)
--- NOTE | 2019-12-28 14:00 | PN ---
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 (short form) - Note 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: 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 Pulm/CCM Pt seen and examined in the ICU. Opens eyes to tactile. No e/o of meningitis from LP. Meningitis coverage being d/c'd. Zosyn for empiric coverage for UTI. Eliquis restarted Active Medications Ascorbic Acid (Vitamin C -) 500 mg PO BID [facility] Last Admin: 12/28/19 09:15 Dose: 500 mg Documented by: Chlorhexidine Gluconate (Hibiclens For Decolonization -) 1 applic TP HS [facility] Last Admin: 12/27/19 21:46 Dose: 1 applic Documented by: Midazolam HCl 100 mg/ Sodium (Chloride) 100 mls @ 1 mls/hr IVPB TITR [facility]; Protocol Last Titration: 12/28/19 08:00 Dose: 10 mg/hr, 10 mls/hr Documented by: Propofol (Diprivan -) 1,000,000 mcg in 100 mls @ 3.3 mls/hr IVPB TITR [facility]; Protocol Last Admin: 12/28/19 11:13 Dose: 30 mcg/kg/min, 19.8 mls/hr Documented by: Piperacillin Sod/Tazobactam (Sod 4.5 gm/ Dextrose) 100 mls @ 200 mls/hr IVPB Q8H-IV [facility]; Protocol Stop: 12/29/19 02:29 Last Admin: 12/28/19 12:14 Dose: 200 mls/hr Documented by: Piperacillin Sod/Tazobactam (Sod 4.5 gm/ Dextrose) 100 mls @ 200 mls/hr IVPB Q8H-IV [facility]; Protocol Dextrose/Sodium Chloride (D5-1/2ns -) 1,000 mls @ 75 mls/hr IV ASDIR [facility] Last Admin: 12/28/19 12:14 Dose: 75 mls/hr Documented by: Insulin Aspart (Novolog Vial Sliding Scale -) 1 vial SQ ACHS [facility]; Protocol Last Admin: 12/28/19 11:12 Dose: Not Given Documented by: Levetiracetam (Keppra Injection -) 1,500 mg IVPB BID [facility] Last Admin: 12/28/19 09:14 Dose: 1,500 mg Documented by: Multivitamins/Minerals/Vitamin C (Tab-A-Vit -) 1 tab PO DAILY [facility] Last Admin: 12/28/19 09:15 Dose: 1 tab Documented by: Mupirocin (Bactroban Ointment (For Decolonization) -) 1 applic NS BID [facility] Stop: 12/31/19 09:59 Last Admin: 12/28/19 09:40 Dose: 1 applic Documented by: Nystatin (Mycostatin Cream -) 1 applic TP DAILY [facility] Last Admin: 12/28/19 09:40 Dose: 1 applic Documented by: Pantoprazole Sodium (Protonix Iv) 40 mg IVPUSH DAILY [facility] Last Admin: 12/28/19 09:15 Dose: 40 mg Documented by: Polyethylene Glycol (Miralax (For Bowel Prep) -) 17 gm PO DAILY [facility] Last Admin: 12/28/19 09:49 Dose: 17 grams Documented by: Potassium Chloride (K-Dur -) 20 meq PO DAILY [facility] Last Admin: 12/28/19 09:50 Dose: Not Given Documented by: Senna (Senna -) 2 tab PO HS [facility] Last Admin: 12/27/19 21:46 Dose: 2 tab Documented by: Valproate Sodium (Depacon Injection -) 1,500 mg IVPB TID [facility] Last Admin: 12/28/19 13:26 Dose: 1,500 mg Documented by: Vital Signs Period Temp Pulse Resp BP Sys/Gama Pulse Ox Last 24 Hr 95.6 F-99.2 F 60-98 16-17 97-127/45-71 98-100 Intake & Output 12/25/19 12/26/19 12/27/19 12/28/19 23:59 23:59 23:59 23:59 Intake Total 2821.6 2741 2632 Output Total 1470 1500 3120 Balance 1351.6 1241 -488 Weight 110 kg 89.811 kg 89.5 kg Gen: intubated, sedated Neck: supple Heart: RRR Lung: decreased breath sounds at the bases Abd: soft, nontender Ext: no edema ABG Results ABG pH 7.51 (7.35-7.45) H 12/28/19 05:40 ABG pCO2 at Pt Temp 27.0 mmHg (35-45) L 12/28/19 05:40 ABG pO2 at Pt Temp 110.5 mmHg (80-100) H 12/28/19 05:40 ABG HCO3 21.1 mmol/L (22-27) L 12/28/19 05:40 ABG O2 Sat (Measured) 98.5 % (95-98) H 12/28/19 05:40 ABG O2 Content No Result Required. 12/28/19 05:40 ABG Base Excess -1.2 mmol/L (-2-2) 12/28/19 05:40 CBC, BMP 12/28/19 06:00 12/28/19 06:00 Microbiology 12/27/19 17:30 Cerebral Spinal Fluid - Lumbar Puncture Streptococcus pneumoniae Antigen (M - Final 12/26/19 01:29 Urine - Urine - Catheterized Urine Culture - Final Proteus Mirabilis 12/25/19 23:59 Blood - Peripheral Venous Blood Culture - Preliminary Staphylococcus Coagulase Neg 12/25/19 23:59 Blood - Peripheral Venous Blood Culture - Preliminary NO GROWTH OBTAINED AFTER 48 HOURS, INCUBATION TO CONTINUE FOR 3 DAYS. 12/27/19 17:30 Cerebral Spinal Fluid - Lumbar Puncture Gram Stain - Preliminary ASSESSMENT AND PLAN: Status Epilepticus Acute Respiratory Failure UTI r/o Meningitis r/o Bacteremia Sepsis +Troponins likely Demand Ischemia Recent COVID19 Bipolar Disorder Mental Retardation DM h/o TBI h/o DVT Anemia - LTVV for plat<30 - Sedation for vent synchrony -Wean sedation as stuart - Cont antiepileptics per neuro - f/u cultures - ID following - LP NGTD - D/c meningitis coverage and steroids - Empiric coverage for UTI, ? bacteremia - repeat blood cxl - IVF for hypernatremia - Monitor UOP and BMP - Replete electrolytes - resume anticoagulation - enteral feeds - DVT/GI prophylaxis - continue ICU monitoring Linda Barraza, RALFP CCT 35mins
[2019-12-28] MEDS ORDERED: MIDAZOLAM IN 0.9 % SOD.CHLORID 1 MG/1 ML PLAST..BAG ONE (16:45)
[2019-12-28] MEDS: SENNOSIDES 8.6MG TABLET (FP) PO SCH (21:49)
[2019-12-28] MEDS: CHLORHEXIDINE GLUCONATE 4% CLEANSER FOR DECOLONIZATION TP SCH (21:51)
--- NOTE | 2019-12-28 22:47 | PN ---
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 (short form) - Note 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: 34 Year old female [place] resident, history of TBI, , on eliquis for DVT, DM, Bipolar disorder. patient has only one seizure in past and was not on any AED inpast. Patietn has been on antipsychotic medicaiton and on depakote for behavior difficulty. Patient was treated with versed and itubated. Patient was treated for meningitis empirically. No seizure since december 25, sedated and intubated. would follow up on eeg and spinal tap done and wbc is 1, protein is 90 No seizure, remains intubated NEUROLOGICAL EXAMINATION ibtubated and sedated, neck is supple withdraws to pain pupils reactive no seizure activity was seen limited neuro exam brain stem reflex, corneal, pupils reflex are present ct head showed right frontal lobe encephalomalacia spinal tap done wbc is 1 , and protein 90 ( less likely to be mningitis based upon ressults) Assessment/Plan 34 year old female [place] resident, history of TBI, , on eliquis for DVT, DM, Bipolar disorder. She is on multiple psych medicaiton including antidepressant and antipsychotic medicaiton , and depakote. Patient has only one seizur ein past. Ct head showed encephalomalacia, and came with status epilepiticuts, sedated and intubated . csf has low wbc and unlikley to be meningitis Continue depakote 1500 iv tid ( as taking at [place]) and Keppra 1500 mg iv bid - hold psych medication, would follow up on eeg - mri of brain once stabe - pateint was covid positive 1-2 weeks ago, - abx were stoped as per ID, Agree there is no evidence of meningitis/encephalitis - spent 35 minute critical time Thanking you so much Gonsalo Shay MD
[2019-12-29] MEDS: PIPERACILLIN/TAZOB 4.5 GM 4.5 GM in DEXTROSE 5%-WATER 100 ML IVPB SCH ×3 (01:26→18:32)
[2019-12-29] MEDS ORDERED: MIDAZOLAM IN 0.9 % SOD.CHLORID 1 MG/1 ML PLAST..BAG ONE ×2 (03:17→21:37)
[2019-12-29] MEDS: PROPOFOL 1,000,000 MCG/100 ML VIAL IVPB SCH ×3 (03:35→06:26)
[2019-12-29] MEDS: MIDAZOLAM 100 MG in SODIUM CHLORIDE 100 ML IVPB SCH ×2 (06:00→06:25)
[2019-12-29 06:17] LABS: HEMATOCRIT 25.7 % (32.4-45.2); HEMOGLOBIN 8.5 GM/dL (10.7-15.3); MCH 31.4 pg (25.7-33.7); MCHC 33.3 g/dl (32.0-36.0); MEAN CELL VOLUME 94.5 fl (80-96); MEAN PLT VOLUME 9.6 fl (7.5-11.1); PLATELET COUNT 105 K/MM3 (134-434); RBC 2.72 M/mm3 (3.60-5.2); RDW 15.8 % (11.6-15.6); WHITE BLOOD COUNT 7.9 K/mm3 (4.0-10.0)
[2019-12-29] MEDS: VALPROATE SODIUM 500 MG/5 ML VIAL IVPB SCH ×3 (06:26→22:15)
[2019-12-29] MEDS: INSULIN SLIDING SCALE (NOVOLOG) 1 VIAL SQ SCH ×3 (06:26→17:35)
[2019-12-29 06:48] LABS: ALBUMIN 2.2 g/dl (3.4-5.0); BILIRUBIN,TOTAL 0.6 mg/dL (0.2-1); BLOOD UREA NITROGEN 11.9 mg/dL (7-18); CALCIUM 8.3 mg/dL (8.5-10.1); CREATININE 0.9 mg/dL (0.55-1.3); TOT PROT 5.3 g/dl (6.4-8.2)
[2019-12-29 07:19] LABS: POTASSIUM 2.9 mmol/L (3.5-5.1)
[2019-12-29] MEDS ORDERED: POTASSIUM PHOSPHATE 30 MM in DEXTROSE 5%-WATER - 250 ML IVPB ONE (09:00)
--- NOTE | 2019-12-29 09:26 | PN ---
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 (short form) - Note 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: sedated and intubated on zosyn for possible aspiration pneumonia from NH Vital Signs Period Temp Pulse Resp BP Sys/Gama Pulse Ox Last 24 Hr 96.0 F-99.2 F 48-80 16-17 104-133/47-71 99-100 cor-rrr llungs decreased bs at bases abd soft,nt ext no edema CBC, BMP 12/29/19 05:45 12/29/19 05:45 Microbiology 12/27/19 17:30 Cerebral Spinal Fluid - Lumbar Puncture Gram Stain - Preliminary-negative 12/27/19 17:30 Cerebral Spinal Fluid - Lumbar Puncture CSF Culture - Preliminary-no growth 12/25/19 23:59 Blood - Peripheral Venous Blood Culture - Preliminary NO GROWTH OBTAINED AFTER 72 HOURS, INCUBATION TO CON TINUE FOR 2 DAYS. 12/27/19 17:30 Cerebral Spinal Fluid - Lumbar Puncture Streptococcus pneumoniae Antigen (M - Final-negative 12/26/19 01:29 Urine - Urine - Catheterized Urine Culture - Final Proteus Mirabilis 12/25/19 23:59 Blood - Peripheral Venous Blood Culture - Preliminary Staphylococcus Coagulase Neg a/p s/p seizures-history of TBI, history of craniotomy intubated for airway protection no evidence of meningitis blood cultures coag neg staph one bottle- contaminant continue zosyn for possible aspiration pneumonia ([place])
[2019-12-29] MEDS: MULTIVITAMINS (DAILY MVI) TABLET (FP) PO SCH (10:42)
[2019-12-29] MEDS: MUPIROCIN 2% TOPICAL OINTMENT FOR DECOLONIZATION NS SCH ×2 (10:42→22:17)
[2019-12-29] MEDS: PANTOPRAZOLE SODIUM 40 MG VIAL IVPUSH SCH (10:42)
[2019-12-29] MEDS: POTASSIUM CHLORIDE TABS 20 MEQ TABLET.ER (FP) PO SCH (10:42)
[2019-12-29] MEDS: ASCORBIC ACID 500 MG TABLET (FP) PO SCH ×2 (10:42→22:16)
[2019-12-29] MEDS: levETIRAcetam 500 MG/5 ML INJECTION VIAL IVPB SCH ×2 (10:42→22:16)
[2019-12-29] MEDS ORDERED: PIPERACILLIN/TAZOBACTAM 4.5 GM VIAL IVPB ONE ×2 (10:45→16:09)
[2019-12-29] MEDS ORDERED: DEXTROSE 5%-WATER 100 ML IVPB ONE ×2 (10:45→16:09)
[2019-12-29] MEDS: NYSTATIN 100,000 UNIT/GM TOPICAL CREAM 15 GM TUBE TP SCH (11:34)
[2019-12-29] MEDS: POLYETHYLENE GLYCOL 3350 255 GM BTL PO SCH (11:34)
--- NOTE | 2019-12-29 13:12 | PN ---
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 (short form) - Note 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: PULM/CCM Pt seen and examined in the ICU. Opens eyes on sedation holiday. Occasional breathrough sz activity (c/w baseline). Active Medications Ascorbic Acid (Vitamin C -) 500 mg PO BID [facility] Last Admin: 12/29/19 10:42 Dose: 500 mg Documented by: Chlorhexidine Gluconate (Hibiclens For Decolonization -) 1 applic TP HS [facility] Last Admin: 12/28/19 21:51 Dose: 1 applic Documented by: Midazolam HCl 100 mg/ Sodium (Chloride) 100 mls @ 1 mls/hr IVPB TITR [facility]; Protocol Last Admin: 12/29/19 06:25 Dose: Not Given Documented by: Propofol (Diprivan -) 1,000,000 mcg in 100 mls @ 3.3 mls/hr IVPB TITR [facility]; Protocol Last Admin: 12/29/19 06:26 Dose: Not Given Documented by: Piperacillin Sod/Tazobactam (Sod 4.5 gm/ Dextrose) 100 mls @ 200 mls/hr IVPB Q8H-IV [facility]; Protocol Last Admin: 12/29/19 10:48 Dose: 200 mls/hr Documented by: Dextrose/Sodium Chloride (D5-1/2ns -) 1,000 mls @ 75 mls/hr IV ASDIR [facility] Last Admin: 12/28/19 12:14 Dose: 75 mls/hr Documented by: Insulin Aspart (Novolog Vial Sliding Scale -) 1 vial SQ ACHS [facility]; Protocol Last Admin: 12/29/19 06:26 Dose: Not Given Documented by: Levetiracetam (Keppra Injection -) 1,500 mg IVPB BID [facility] Last Admin: 12/29/19 10:42 Dose: 1,500 mg Documented by: Multivitamins/Minerals/Vitamin C (Tab-A-Vit -) 1 tab PO DAILY [facility] Last Admin: 12/29/19 10:42 Dose: 1 tab Documented by: Mupirocin (Bactroban Ointment (For Decolonization) -) 1 applic NS BID [facility] Stop: 12/31/19 09:59 Last Admin: 12/29/19 10:42 Dose: 1 applic Documented by: Nystatin (Mycostatin Cream -) 1 applic TP DAILY [facility] Last Admin: 12/28/19 09:40 Dose: 1 applic Documented by: Pantoprazole Sodium (Protonix Iv) 40 mg IVPUSH DAILY [facility] Last Admin: 12/29/19 10:42 Dose: 40 mg Documented by: Polyethylene Glycol (Miralax (For Bowel Prep) -) 17 gm PO DAILY [facility] Last Admin: 12/28/19 09:49 Dose: 17 grams Documented by: Potassium Chloride (K-Dur -) 20 meq PO DAILY [facility] Last Admin: 12/29/19 10:42 Dose: 20 meq Documented by: Senna (Senna -) 2 tab PO HS [facility] Last Admin: 12/28/19 21:49 Dose: 2 tab Documented by: Valproate Sodium (Depacon Injection -) 1,500 mg IVPB TID [facility] Last Admin: 12/29/19 06:26 Dose: 1,500 mg Documented by: Vital Signs Period Temp Pulse Resp BP Sys/Gama Pulse Ox Last 24 Hr 96.0 F-99.2 F 48-80 16-17 104-133/47-71 99-100 Intake & Output 12/26/19 12/27/19 12/28/19 12/29/19 23:59 23:59 23:59 23:59 Intake Total 2821.6 2741 3702.8 1610 Output Total 1470 1500 3220 1000 Balance 1351.6 1241 482.8 610 Weight 89.811 kg 89.5 kg 94.517 kg Gen: intubated, sedated Neck: supple Heart: RRR Lung: decreased breath sounds at the bases Abd: soft, nontender Ext: no edema CBC, BMP 12/29/19 05:45 12/29/19 05:45 ABG Results ABG pH 7.51 (7.35-7.45) H 12/28/19 05:40 ABG pCO2 at Pt Temp 27.0 mmHg (35-45) L 12/28/19 05:40 ABG pO2 at Pt Temp 110.5 mmHg (80-100) H 12/28/19 05:40 ABG HCO3 21.1 mmol/L (22-27) L 12/28/19 05:40 ABG O2 Sat (Measured) 98.5 % (95-98) H 12/28/19 05:40 ABG O2 Content No Result Required. 12/28/19 05:40 ABG Base Excess -1.2 mmol/L (-2-2) 12/28/19 05:40 Microbiology 12/27/19 17:30 Cerebral Spinal Fluid - Lumbar Puncture Gram Stain - Preliminary 12/27/19 17:30 Cerebral Spinal Fluid - Lumbar Puncture CSF Culture - Preliminary 12/25/19 23:59 Blood - Peripheral Venous Blood Culture - Preliminary NO GROWTH OBTAINED AFTER 72 HOURS, INCUBATION TO CONTINUE FOR 2 DAYS. 12/27/19 17:30 Cerebral Spinal Fluid - Lumbar Puncture Streptococcus pneumoniae Antigen (M - Final 12/26/19 01:29 Urine - Urine - Catheterized Urine Culture - Final Proteus Mirabilis 12/25/19 23:59 Blood - Peripheral Venous Blood Culture - Preliminary Staphylococcus Coagulase Neg RECENT STUDIES TO NOTE: CXR 12/27: No obvious infiltrate or pleural effusion is noted. In comparison to a prior exam of 12/26/2019 there is no longer definite visualization of an endotracheal tube which may be due to a very high position versus interval extubation. Correlate clinically. The heart, carolyn and mediastinum appear unremarkable as visualized. The right internal jugular venous catheter is again seen in place. ASSESS: Status Epilepticus Acute Respiratory Failure UTI Bacteremia Sepsis +Troponins likely Demand Ischemia Recent COVID19 Bipolar Disorder Mental Retardation DM h/o TBI h/o DVT Anemia PLAN: - LTVV for plat<30 - Sedation for vent synchrony - Wean sedation as stuart - Cont antiepileptics per neuro - f/u cultures - ID following - LP NGTD - Cont Empiric coverage for UTI, ? bacteremia - repeat blood cxl a/p - IVF for hypernatremia - Monitor UOP and BMP - Replete electrolytes - Cont anticoagulation - enteral feeds - DVT/GI prophylaxis - continue ICU monitoring [facility]- PULM/CCM [facility] ICU PULM/CCM [id number]
[2019-12-29] MEDS: DEXTROSE 5%-0.45% SALINE 1,000 ML IV SCH (13:15)
[2019-12-29] MEDS ORDERED: PT OWN MED DRAWER 7, Y5N ONE (14:48)
--- NOTE | 2019-12-29 21:31 | PN ---
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 (short form) - Note 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: 34 Year old female [place] resident, history of TBI, , on eliquis for DVT, DM, Bipolar disorder. patient has only one seizure in past and was not on any AED inpast. Patietn has been on antipsychotic medicaiton and on depakote for behavior difficulty. Patient was treated with versed and itubated. Patient was treated for meningitis empirically. No seizure since december 25, sedated and intubated. would follow up on eeg and spinal tap done and wbc is 1, protein is 90 No seizure, remains intubated NEUROLOGICAL EXAMINATION ibtubated and sedated, neck is supple withdraws to pain pupils reactive no seizure activity was seen limited neuro exam brain stem reflex, corneal, pupils reflex are present ct head showed right frontal lobe encephalomalacia spinal tap done wbc is 1 , and protein 90 ( less likely to be mningitis based upon ressults) Assessment/Plan 34 year old female [place] resident, history of TBIMD , on eliquis for DVT, DM, Bipolar disorder. She is on multiple psych medicaiton including antidepressant and antipsychotic medicaiton , and depakote. Patient has only one seizur ein past. Ct head showed encephalomalacia, and came with status epilepiticuts, sedated and intubated . csf has low wbc and unlikley to be meningitis Continue depakote 1500 iv tid ( as taking at [place]) and Keppra 1500 mg iv bid - mri of brain once stabe - continue antiepileptic medication for now - spent 35 minute critical time Thanking you so much Gonsalo Shay MD
[2019-12-29] MEDS: SENNOSIDES 8.6MG TABLET (FP) PO SCH (22:16)
[2019-12-29] MEDS: CHLORHEXIDINE GLUCONATE 4% CLEANSER FOR DECOLONIZATION TP SCH (22:20)
[2019-12-30] MEDS ORDERED: PIPERACILLIN/TAZOBACTAM 4.5 GM VIAL IVPB ONE ×3 (00:18→14:45)
[2019-12-30] MEDS ORDERED: DEXTROSE 5%-WATER 100 ML IVPB ONE ×3 (00:18→14:45)
[2019-12-30] MEDS: INSULIN SLIDING SCALE (NOVOLOG) 1 VIAL SQ SCH ×5 (02:20→21:46)
[2019-12-30] MEDS: PIPERACILLIN/TAZOB 4.5 GM 4.5 GM in DEXTROSE 5%-WATER 100 ML IVPB SCH ×3 (02:20→17:02)
[2019-12-30] MEDS: MIDAZOLAM 100 MG in SODIUM CHLORIDE 100 ML IVPB SCH (02:21)
[2019-12-30] MEDS: PROPOFOL 1,000,000 MCG/100 ML VIAL IVPB SCH (02:21)
[2019-12-30] MEDS: VALPROATE SODIUM 500 MG/5 ML VIAL IVPB SCH ×3 (05:45→21:15)
[2019-12-30 07:36] LABS: HEMATOCRIT 26.2 % (32.4-45.2); HEMOGLOBIN 8.7 GM/dL (10.7-15.3); MCH 31.4 pg (25.7-33.7); MCHC 33.2 g/dl (32.0-36.0); MEAN CELL VOLUME 94.6 fl (80-96); MEAN PLT VOLUME 9.4 fl (7.5-11.1); PLATELET COUNT 102 K/MM3 (134-434); RBC 2.77 M/mm3 (3.60-5.2); RDW 16.2 % (11.6-15.6); WHITE BLOOD COUNT 6.1 K/mm3 (4.0-10.0)
[2019-12-30] MEDS ORDERED: MIDAZOLAM IN 0.9 % SOD.CHLORID 1 MG/1 ML PLAST..BAG ONE (07:46)
[2019-12-30 07:48] LABS: BLOOD UREA NITROGEN 9.6 mg/dL (7-18); CALCIUM 7.9 mg/dL (8.5-10.1); CREATININE 0.7 mg/dL (0.55-1.3); MAGNESIUM 1.8 mg/dL (1.8-2.4); PHOSPHOROUS 3.9 mg/dL (2.5-4.9)
[2019-12-30 08:03] LABS: POTASSIUM 2.7 mmol/L (3.5-5.1)
[2019-12-30] MEDS ORDERED: KCL 10 MEQ IVPB 10 MEQ/100 ML INFUS.BAG IVPB SCH (08:15)
[2019-12-30] MEDS: levETIRAcetam 500 MG/5 ML INJECTION VIAL IVPB SCH ×2 (10:20→21:15)
[2019-12-30] MEDS: POLYETHYLENE GLYCOL 3350 255 GM BTL PO SCH (10:21)
[2019-12-30] MEDS: NYSTATIN 100,000 UNIT/GM TOPICAL CREAM 15 GM TUBE TP SCH (10:21)
[2019-12-30] MEDS: MUPIROCIN 2% TOPICAL OINTMENT FOR DECOLONIZATION NS SCH ×2 (10:21→21:15)
[2019-12-30] MEDS: POTASSIUM CHLORIDE TABS 20 MEQ TABLET.ER (FP) PO SCH (10:21)
[2019-12-30] MEDS: ASCORBIC ACID 500 MG TABLET (FP) PO SCH ×2 (10:21→21:15)
[2019-12-30] MEDS: PANTOPRAZOLE SODIUM 40 MG VIAL IVPUSH SCH (10:21)
[2019-12-30] MEDS: MULTIVITAMINS (DAILY MVI) TABLET (FP) PO SCH (10:21)
[2019-12-30] MEDS: POTASSIUM CHLORIDE 20 MEQ PREMIX IVPB 100 ML IVPB SCH ×2 (10:22→11:30)
[2019-12-30] MEDS ORDERED: PT OWN MED DRAWER 7, Y5N ONE (10:29)
--- NOTE | 2019-12-30 10:51 | PN ---
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, Physician History of Present Illness: AWAKE ON VENTILATOR OFF SEDATION HYPOTHERMIC BC SCN X 1 URINE C/S PROTEUS WBC WNL PLT COUNT DROPPING CXR OPACIFIED L HEMITHORAX - Current Medication List Current Medications: Active Medications Ascorbic Acid (Vitamin C -) 500 mg PO BID [facility] Last Admin: 12/30/19 10:21 Dose: 500 mg Documented by: Chlorhexidine Gluconate (Hibiclens For Decolonization -) 1 applic TP HS [facility] Last Admin: 12/29/19 22:20 Dose: 1 applic Documented by: Midazolam HCl 100 mg/ Sodium (Chloride) 100 mls @ 1 mls/hr IVPB TITR [facility]; Protocol Last Admin: 12/30/19 02:21 Dose: 6 mg/hr, 6 mls/hr Documented by: Propofol (Diprivan -) 1,000,000 mcg in 100 mls @ 3.3 mls/hr IVPB TITR [facility]; Protocol Last Admin: 12/30/19 02:21 Dose: 30 mcg/kg/min, 19.8 mls/hr Documented by: Piperacillin Sod/Tazobactam (Sod 4.5 gm/ Dextrose) 100 mls @ 200 mls/hr IVPB Q8H-IV [facility]; Protocol Last Admin: 12/30/19 10:20 Dose: 200 mls/hr Documented by: Dextrose/Sodium Chloride (D5-1/2ns -) 1,000 mls @ 75 mls/hr IV ASDIR [facility] Last Admin: 12/29/19 13:15 Dose: 75 mls/hr Documented by: Insulin Aspart (Novolog Vial Sliding Scale -) 1 vial SQ ACHS [facility]; Protocol Last Admin: 12/30/19 06:05 Dose: Not Given Documented by: Levetiracetam (Keppra Injection -) 1,500 mg IVPB BID [facility] Last Admin: 12/30/19 10:20 Dose: 1,500 mg Documented by: Multivitamins/Minerals/Vitamin C (Tab-A-Vit -) 1 tab PO DAILY [facility] Last Admin: 12/30/19 10:21 Dose: 1 tab Documented by: Mupirocin (Bactroban Ointment (For Decolonization) -) 1 applic NS BID [facility] Stop: 12/31/19 09:59 Last Admin: 12/30/19 10:21 Dose: 1 applic Documented by: Nystatin (Mycostatin Cream -) 1 applic TP DAILY [facility] Last Admin: 12/30/19 10:21 Dose: 1 applic Documented by: Pantoprazole Sodium (Protonix Iv) 40 mg IVPUSH DAILY [facility] Last Admin: 12/30/19 10:21 Dose: 40 mg Documented by: Polyethylene Glycol (Miralax (For Bowel Prep) -) 17 gm PO DAILY [facility] Last Admin: 12/30/19 10:21 Dose: 17 grams Documented by: Potassium Chloride (K-Dur -) 20 meq PO DAILY [facility] Last Admin: 12/30/19 10:21 Dose: 20 meq Documented by: Senna (Senna -) 2 tab PO HS [facility] Last Admin: 12/29/19 22:16 Dose: 2 tab Documented by: Valproate Sodium (Depacon Injection -) 1,500 mg IVPB TID [facility] Last Admin: 12/30/19 05:45 Dose: 1,500 mg Documented by: - Objective Vital Signs: Vital Signs Temperature 96.5 F L 12/30/19 08:00 Pulse Rate 64 12/30/19 08:29 Respiratory Rate 16 12/30/19 08:41 Blood Pressure 108/56 L 12/30/19 08:00 O2 Sat by Pulse Oximetry (%) 98 12/30/19 08:41 Constitutional: Yes: Obese Cardiovascular: Yes: Regular Rate and Rhythm, S1, S2 Respiratory: Yes: Mechanically Ventilated Gastrointestinal: Yes: Normal Bowel Sounds, Soft. No: Tenderness Edema: Yes Labs: CBC, BMP 12/30/19 05:00 12/30/19 05:00 INR, PTT INR 1.41 (0.83-1.09) H 12/26/19 01:16 Assessment/Plan S/P SEIZURES RESP FAILURE PROBABLE ASP PNEUMONIA OPACIFIED L HEMITHORAX NO EVIDENCE OF MENINGITIS + BC SCN = CONTAMINANT UTI THROMBOCYTOPENIA ON ZOSYN FOR POSSIBLE ASPIRATION MONITOR PLT COUNT- MAY NEED TO STOP ZOSYN IF CONTINUED DROP
[2019-12-30] MEDS: DEXTROSE 5%-0.45% SALINE 1,000 ML IV SCH (11:02)
--- NOTE | 2019-12-30 13:20 | PN ---
Physical Exam: SUBJECTIVE: Patient seen and examined. Afebriel and asymptomatic. Will need directional suction to remove left mucus plug. Pt extubated on Cpap. OBJECTIVE: Vital Signs Period Temp Pulse Resp BP Sys/Gama Pulse Ox Last 24 Hr 94.5 F-99.2 F 45-88 16-29 100-137/54-72 95-100 GENERAL: extubated on cpap HEENT: no e/o facial or head trauma, no acute oropharyngeal ulcerations, PERRL NECK/BACK: no obvious neck hematoma or other trauma CARDIOVASCULAR: regular rhythm and tachycardic, no MGR, strong peripheral pulses, lukewarm extremities LUNGS/RESPIRATORY: breath sounds coarse but no focal area of decreased sounds GI/ABDOMEN: symmetric, atraumatic outwardly : Altman in place, normal external appearance MSK/EXTREMITIES: no evidence of acute trauma DERM/SKIN: dry, no jaundice, no rash, no pathologic-appearing bruising NEUROLOGICAL: unable to assess A/O given that the patient coming off sedation, +brainstem reflexes, patient is otherwise unable to participate in exam Laboratory Results - last 24 hr 12/27/19 12/29/19 12/29/19 16:16 16:06 22:51 WBC RBC Hgb Hct MCV MCH MCHC RDW Plt Count MPV Sodium Potassium Chloride Carbon Dioxide Anion Gap BUN Creatinine Est GFR (CKD-EPI)AfAm Est GFR (CKD-EPI)NonAf POC Glucometer 136 105 83 Random Glucose Calcium Phosphorus Magnesium 12/30/19 12/30/19 12/30/19 05:00 05:00 05:18 WBC 6.1 RBC 2.77 L Hgb 8.7 L Hct 26.2 L MCV 94.6 MCH 31.4 MCHC 33.2 RDW 16.2 H Plt Count 102 L MPV 9.4 Sodium 155 H Potassium 2.7 L* Chloride 124 H Carbon Dioxide 23 Anion Gap 8 BUN 9.6 Creatinine 0.7 Est GFR (CKD-EPI)AfAm 132.87 Est GFR (CKD-EPI)NonAf 114.64 POC Glucometer 82 Random Glucose 85 Calcium 7.9 L Phosphorus 3.9 Magnesium 1.8 12/30/19 11:16 WBC RBC Hgb Hct MCV MCH MCHC RDW Plt Count MPV Sodium Potassium Chloride Carbon Dioxide Anion Gap BUN Creatinine Est GFR (CKD-EPI)AfAm Est GFR (CKD-EPI)NonAf POC Glucometer 81 Random Glucose Calcium Phosphorus Magnesium Active Medications Generic Name Dose Route Start Last Admin Trade Name Shellie PRN Reason Stop Dose Admin Ascorbic Acid 500 mg 12/28/19 10:00 12/30/19 10:21 Vitamin C - PO 500 mg BID [facility] Administration Chlorhexidine Gluconate 1 applic 12/26/19 22:00 12/29/19 22:20 Hibiclens For Decolonization - TP 1 applic HS [facility] Administration Midazolam HCl 100 mg/ Sodium 100 mls @ 1 mls/hr 12/25/19 23:45 12/30/19 02:21 Chloride IVPB 6 mg/hr TITR [facility] 6 mls/hr Administration Protocol 1 MG/HR Propofol 1,000,000 mcg in 100 mls @ 3.3 mls/hr 12/26/19 01:30 12/30/19 02:21 Diprivan - IVPB 30 mcg/kg/min TITR [facility] 19.8 mls/hr Administration Protocol 5 MCG/KG/MIN Piperacillin Sod/Tazobactam 100 mls @ 200 mls/hr 12/28/19 10:45 12/30/19 10:20 Sod 4.5 gm/ Dextrose IVPB 200 mls/hr Q8H-IV [facility] Administration Protocol Dextrose/Sodium Chloride 1,000 mls @ 75 mls/hr 12/28/19 12:15 12/29/19 13:15 D5-1/2ns - IV 75 mls/hr ASDIR [facility] Administration Insulin Aspart 1 vial 12/26/19 11:00 12/30/19 06:05 Novolog Vial Sliding Scale - SQ Not Given ACHS [facility] Protocol Levetiracetam 1,500 mg 12/26/19 11:15 12/30/19 10:20 Keppra Injection - IVPB 1,500 mg BID [facility] Administration Multivitamins/Minerals/Vitamin C 1 tab 12/27/19 10:00 12/30/19 10:21 Tab-A-Vit - PO 1 tab DAILY [facility] Administration Mupirocin 1 applic 12/26/19 10:00 12/30/19 10:21 Bactroban Ointment (For Decolonization) - NS 12/31/19 09:59 1 applic BID [facility] Administration Nystatin 1 applic 12/27/19 10:00 12/30/19 10:21 Mycostatin Cream - TP 1 applic DAILY [facility] Administration Pantoprazole Sodium 40 mg 12/26/19 11:00 12/30/19 10:21 Protonix Iv IVPUSH 40 mg DAILY [facility] Administration Polyethylene Glycol 17 gm 12/27/19 10:00 12/30/19 10:21 Miralax (For Bowel Prep) - PO 17 grams DAILY [facility] Administration Potassium Chloride 20 meq 12/27/19 10:00 12/30/19 10:21 K-Dur - PO 20 meq DAILY [facility] Administration Senna 2 tab 12/26/19 22:00 12/29/19 22:16 Senna - PO 2 tab HS [facility] Administration Valproate Sodium 1,500 mg 12/26/19 14:00 12/30/19 05:45 Depacon Injection - IVPB 1,500 mg TID [facility] Administration ASSESSMENT/PLAN: 34YOF with h/o epilepsy, prior TBI, on eliquis, who p/w status epilepticus in the setting of recent visit to [facility] for seizure with head injury from fall with normal initial HCT at that time (12/24/19). Also found febrile tonight. #NEURO/PSYCH: Status epilepticus, h/o TBI- [facility] unsure of when. MR/DD CT: s/p craniotomy, encephalomalacia noted, no hemorrhage 1500 mg Keppra BID + [address] Shay following in consult for Neurology R/o Meningitis- CSF unlikely for bacterial meningitis d/rayray Ceftriaxone, vancomycin, acyclovir, dexamethasone On zosyn, will likely d/c Baseline mental status- bed bound, hallucination, confused Extubated on CPAP As per neuro, when stable consider Brain MRI #CV Prolonged QTc, sinus tachycardia, troponinemia trending down BNP elevated- will monitor, r/p BNP Avoid QT prolonging medications Consulted Cardio Dr. Lui- pending Eliquis BID started by [facility] for dvt ppx ECHO wnl #Pulm Extubated on Cpap COVID neg Pt discharged in september to [facility] from [place] for Acute hypoxic resp failure 2/2 to COVID+ CXR: left hemithorax opacification 2/2 to mucus plug- pt will cough it out #ENDOCRINE: Stable Monitor #GI consider swallow eval- if cleared the diabetic/sodium diet #RENAL/ Monitor #HEME: -Monitor #ID: [id number]- 1 bottle growing SCoN ID consulted s/p LP- no sign of bacterial meningitis On zosyn, will likely d/c tomorrow vanc levels 17 #DERM: Stable -Monitor IO placed from ED? Removed in ICU #Lines RIJ 12/25 FEN: off IVF Tube feeds for now, After swallow eval, start feeds- diabetic/sodium diet, if unable to tolerate, give clears monitor lytes Prophylaxis: DVT: HOLD Eliquis. Will give heparin for ppx until cardiology weighs in GI: protonix Dispo: cont ICU monitoring, cont abx, antiepileptics, monitor off vent, on cpap, if seizes, give ativan and if seizing cont, consider Dilantin Code Status/Family Conversation: Full Code (per [facility] paperwork) Brother Lars Busby at the number in [facility] paperwork ([phone]) Brother on [place] paperwork ([phone]), reached patient's uncle Abdoul Busby, got updated number for brother Eric. Schreiber ([phone]) Visit type - Emergency Visit Emergency Visit: Yes ED Registration Date: 12/25/19 Care time: The patient presented to the Emergency Department on the above date and was hospitalized for further evaluation of their emergent condition. - New Patient This patient is new to me today: Yes Date on this admission: 12/31/19 - Critical Care Critical Care patient: No - Discharge Referral Referred to [facility] Med [facility] No ATTENDING PHYSICIAN STATEMENT I saw and evaluated the patient. I reviewed the resident's note and discussed the case with the resident. I agree with the resident's findings and plan as documented. SUBJECTIVE: OBJECTIVE: ASSESSMENT AND PLAN:
--- NOTE | 2019-12-30 14:10 | PN ---
Teaching Attending Note Name of Resident: Kane Matta ATTENDING PHYSICIAN STATEMENT I saw and evaluated the patient. I reviewed the resident's note and discussed the case with the resident. I agree with the resident's findings and plan as documented. SUBJECTIVE: Patient seen and examined in the ICU. Intubated and sedated. Opens eyes to tactile stimuli. No seizure noted. Intake & Output 12/27/19 12/28/19 12/29/19 12/30/19 23:59 23:59 23:59 23:59 Intake Total 2741 3702.8 5010.6 Output Total 1500 3220 3100 350 Balance 1241 482.8 1910.6 -350 Weight 197 lb 5.019 oz 208 lb 6 oz 216 lb 7.903 oz Last Vital Signs Temp Pulse Resp BP Pulse Ox 96.5 F L 64 29 H 108/56 L 100 12/30/19 08:00 12/30/19 08:29 12/30/19 11:49 12/30/19 08:00 12/30/19 11:49 Active Medications Ascorbic Acid (Vitamin C -) 500 mg PO BID [facility] Last Admin: 12/30/19 10:21 Dose: 500 mg Documented by: Chlorhexidine Gluconate (Hibiclens For Decolonization -) 1 applic TP HS [facility] Last Admin: 12/29/19 22:20 Dose: 1 applic Documented by: Heparin Sodium (Porcine) (Heparin -) 5,000 unit SQ BID [facility] Midazolam HCl 100 mg/ Sodium (Chloride) 100 mls @ 1 mls/hr IVPB TITR [facility]; Protocol Last Admin: 12/30/19 02:21 Dose: 6 mg/hr, 6 mls/hr Documented by: Propofol (Diprivan -) 1,000,000 mcg in 100 mls @ 3.3 mls/hr IVPB TITR [facility]; Protocol Last Admin: 12/30/19 02:21 Dose: 30 mcg/kg/min, 19.8 mls/hr Documented by: Piperacillin Sod/Tazobactam (Sod 4.5 gm/ Dextrose) 100 mls @ 200 mls/hr IVPB Q8H-IV [facility]; Protocol Last Admin: 12/30/19 10:20 Dose: 200 mls/hr Documented by: Dextrose/Sodium Chloride (D5-1/2ns -) 1,000 mls @ 75 mls/hr IV ASDIR [facility] Last Admin: 12/29/19 13:15 Dose: 75 mls/hr Documented by: Insulin Aspart (Novolog Vial Sliding Scale -) 1 vial SQ ACHS [facility]; Protocol Last Admin: 12/30/19 06:05 Dose: Not Given Documented by: Levetiracetam (Keppra Injection -) 1,500 mg IVPB BID [facility] Last Admin: 12/30/19 10:20 Dose: 1,500 mg Documented by: Multivitamins/Minerals/Vitamin C (Tab-A-Vit -) 1 tab PO DAILY [facility] Last Admin: 12/30/19 10:21 Dose: 1 tab Documented by: Mupirocin (Bactroban Ointment (For Decolonization) -) 1 applic NS BID [facility] Stop: 12/31/19 09:59 Last Admin: 12/30/19 10:21 Dose: 1 applic Documented by: Nystatin (Mycostatin Cream -) 1 applic TP DAILY [facility] Last Admin: 12/30/19 10:21 Dose: 1 applic Documented by: Pantoprazole Sodium (Protonix Iv) 40 mg IVPUSH DAILY [facility] Last Admin: 12/30/19 10:21 Dose: 40 mg Documented by: Polyethylene Glycol (Miralax (For Bowel Prep) -) 17 gm PO DAILY [facility] Last Admin: 12/30/19 10:21 Dose: 17 grams Documented by: Potassium Chloride (K-Dur -) 20 meq PO DAILY [facility] Last Admin: 12/30/19 10:21 Dose: 20 meq Documented by: Senna (Senna -) 2 tab PO HS [facility] Last Admin: 12/29/19 22:16 Dose: 2 tab Documented by: Valproate Sodium (Depacon Injection -) 1,500 mg IVPB TID [facility] Last Admin: 12/30/19 05:45 Dose: 1,500 mg Documented by: Gen: intubated, sedated Neck: supple Heart: RRR Lung: decreased breath sounds at the bases Abd: soft, nontender Ext: no edema Laboratory Results - last 24 hr 12/27/19 12/29/19 12/29/19 16:16 16:06 22:51 WBC RBC Hgb Hct MCV MCH MCHC RDW Plt Count MPV Sodium Potassium Chloride Carbon Dioxide Anion Gap BUN Creatinine Est GFR (CKD-EPI)AfAm Est GFR (CKD-EPI)NonAf POC Glucometer 136 105 83 Random Glucose Calcium Phosphorus Magnesium 12/30/19 12/30/19 12/30/19 05:00 05:00 05:18 WBC 6.1 RBC 2.77 L Hgb 8.7 L Hct 26.2 L MCV 94.6 MCH 31.4 MCHC 33.2 RDW 16.2 H Plt Count 102 L MPV 9.4 Sodium 155 H Potassium 2.7 L* Chloride 124 H Carbon Dioxide 23 Anion Gap 8 BUN 9.6 Creatinine 0.7 Est GFR (CKD-EPI)AfAm 132.87 Est GFR (CKD-EPI)NonAf 114.64 POC Glucometer 82 Random Glucose 85 Calcium 7.9 L Phosphorus 3.9 Magnesium 1.8 12/30/19 11:16 WBC RBC Hgb Hct MCV MCH MCHC RDW Plt Count MPV Sodium Potassium Chloride Carbon Dioxide Anion Gap BUN Creatinine Est GFR (CKD-EPI)AfAm Est GFR (CKD-EPI)NonAf POC Glucometer 81 Random Glucose Calcium Phosphorus Magnesium ASSESS: Status Epilepticus Acute Respiratory Failure UTI Bacteremia Sepsis +Troponins likely Demand Ischemia Recent COVID19 Bipolar Disorder Mental Retardation DM h/o TBI h/o DVT Anemia PLAN: - DC sedation to assess mental status - Wean trials as tolerated - AEDs per neuro - ABX per ID - Monitor UOP and BMP - Replete electrolytes - Cont anticoagulation - enteral feeds - DVT/GI prophylaxis - continue ICU monitoring Dr Jeffrey Poe Critical care time spent in reviewing chart, evaluating patient and formulating plan - 36 minutes.
[2019-12-30] MEDS: HEPARIN NA (PORCINE) 5,000 UNITS/ML 1ML VIAL SQ SCH ×2 (14:45→21:15)
--- NOTE | 2019-12-30 17:50 | PN ---
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 (short form) - Note 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: 34 Year old female [place] resident, history of TBI, , on eliquis for DVT, DM, Bipolar disorder. patient has only one seizure in past and was not on any AED inpast. Patietn has been on antipsychotic medicaiton and on depakote for behavior difficulty. Patient was treated with versed and itubated. On admisisonPatient was treated for meningitis empirically, later abx were stopped after spinal tap there is no seizure, eeg showed thereis sharp waves activity. pateint has been extubated NEUROLOGICAL EXAMINATION extubated and opens eyes, no reponse to verbal stimuli withdraws to pain pupils reactive no seizure activity was seen limited neuro exam brain stem reflex, corneal, pupils reflex are present ct head showed right frontal lobe encephalomalacia spinal tap done wbc is 1 , and protein 90 ( less likely to be mningitis based upon ressults) mri once stable Assessment/Plan 34 year old female [place] resident, history of TBI, , on eliquis for DVT, DM, Bipolar disorder. She is on multiple psych medicaiton including antidepressant and antipsychotic medicaiton , and depakote. Patient has only one seizur ein past. Ct head showed encephalomalacia, and came with status epilepiticuts, sedated and intubated . csf has low wbc and unlikley to be meningitis Continue depakote 1500 iv tid ( as taking at [place]) and Keppra 1500 mg iv bid - mri of brain may be planned for tomorrow - continue antiepileptic medication for now - spent 35 minute critical time Thanking you so much Gonsalo Shay MD
[2019-12-30] MEDS: CHLORHEXIDINE GLUCONATE 4% CLEANSER FOR DECOLONIZATION TP SCH (21:15)
[2019-12-30] MEDS: SENNOSIDES 8.6MG TABLET (FP) PO SCH (21:15)
[2019-12-31] MEDS ORDERED: DEXTROSE 5%-WATER 100 ML IVPB ONE ×3 (01:44→17:38)
[2019-12-31] MEDS ORDERED: PIPERACILLIN/TAZOBACTAM 4.5 GM VIAL IVPB ONE ×3 (01:44→17:37)
[2019-12-31] MEDS: PIPERACILLIN/TAZOB 4.5 GM 4.5 GM in DEXTROSE 5%-WATER 100 ML IVPB SCH ×6 (01:57→17:51)
[2019-12-31 05:58] LABS: HEMATOCRIT 31.4 % (32.4-45.2); HEMOGLOBIN 10.2 GM/dL (10.7-15.3); MCH 30.5 pg (25.7-33.7); MCHC 32.5 g/dl (32.0-36.0); PLATELET COUNT 117 K/MM3 (134-434); RBC 3.34 M/mm3 (3.60-5.2); RDW 15.9 % (11.6-15.6); WHITE BLOOD COUNT 6.4 K/mm3 (4.0-10.0)
[2019-12-31] MEDS ORDERED: ACETYLCYSTEINE 20% 200MG/ML 4 ML VIAL *FOR ORAL / INH USE ONLY NEB ONE (06:09)
[2019-12-31] MEDS ORDERED: PT OWN MED DRAWER 7, Y5N ONE (06:14)
[2019-12-31] MEDS: KCL 10 MEQ IVPB 10 MEQ/100 ML INFUS.BAG IVPB SCH ×3 (06:18→09:50)
[2019-12-31 06:21] LABS: BLOOD UREA NITROGEN 6.8 mg/dL (7-18); CALCIUM 8.5 mg/dL (8.5-10.1); CREATININE 0.6 mg/dL (0.55-1.3); MAGNESIUM 1.7 mg/dL (1.8-2.4); PHOSPHOROUS 3.4 mg/dL (2.5-4.9); POTASSIUM 3.2 mmol/L (3.5-5.1)
[2019-12-31] MEDS: INSULIN SLIDING SCALE (NOVOLOG) 1 VIAL SQ SCH ×4 (06:25→22:20)
[2019-12-31] MEDS: VALPROATE SODIUM 500 MG/5 ML VIAL IVPB SCH ×3 (06:28→22:22)
[2019-12-31] MEDS ORDERED: NAPH,MB-DB/K PH,MBDB POWDER PACKET PO ONE (06:52)
[2019-12-31] MEDS ORDERED: MAGNESIUM SULF 50% (8.12 MEQ/2 ML-1 GM VIAL) IVPB ONE (06:52)
[2019-12-31] MEDS: levETIRAcetam 500 MG/5 ML INJECTION VIAL IVPB SCH ×2 (09:01→22:21)
[2019-12-31] MEDS: HEPARIN NA (PORCINE) 5,000 UNITS/ML 1ML VIAL SQ SCH ×2 (09:01→22:20)
[2019-12-31] MEDS: PANTOPRAZOLE SODIUM 40 MG VIAL IVPUSH SCH (09:01)
[2019-12-31] MEDS: POTASSIUM CHLORIDE TABS 20 MEQ TABLET.ER (FP) PO SCH (10:00)
--- NOTE | 2019-12-31 10:03 | CONSULT ---
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 Extubated yesterday 12:45. Per ID-S/P SEIZURES RESP FAILURE PROBABLE ASP PNEUMONIA OPACIFIED L HEMITHORAX NO EVIDENCE OF MENINGITIS + BC SCN = CONTAMINANT UTI THROMBOCYTOPENIA ON ZOSYN FOR POSSIBLE ASPIRATION MONITOR PLT COUNT- MAY NEED TO STOP ZOSYN IF CONTINUED DROP Per Neurology- ct head showed right frontal lobe encephalomalacia spinal tap done wbc is 1 , and protein 90 ( less likely to be meningitis based upon results) mri once stable Selected Entries 12/27/19 12/30/19 12/30/19 09:18 00:00 00:05 Breakfast NPO Supper Temperature 95.6 F L Respiratory 16 16 Rate Respiratory Depth Respiratory Effort O2 Sat by Pulse Oximetry (%) Oxygen Delivery Method Fraction of 40 Inspired Oxygen (FIO2) Oxygen Flow Rate 12/30/19 12/30/19 12/30/19 02:00 04:00 04:05 Breakfast Supper Temperature 94.5 F L Respiratory 16 16 16 Rate Respiratory Depth Respiratory Effort O2 Sat by Pulse 99 Oximetry (%) Oxygen Delivery Mechanical Method Ventilator Fraction of 40 Inspired Oxygen (FIO2) Oxygen Flow Rate 12/30/19 12/30/19 12/30/19 06:00 08:00 08:29 Breakfast Supper Temperature 96.5 F L Respiratory 16 16 16 Rate Respiratory Depth Respiratory Effort O2 Sat by Pulse 95 Oximetry (%) Oxygen Delivery Mechanical Method Ventilator Fraction of 40 Inspired Oxygen (FIO2) Oxygen Flow Rate 12/30/19 12/30/19 12/30/19 08:41 10:00 11:49 Breakfast Supper Temperature 98.2 F Respiratory 16 16 29 H Rate Respiratory Normal Depth Respiratory Mechanically Effort Ventilated O2 Sat by Pulse 98 100 Oximetry (%) Oxygen Delivery Mechanical Method Ventilator Fraction of 40 40 Inspired Oxygen (FIO2) Oxygen Flow 16 Rate 12/30/19 12/30/19 12/30/19 12:00 13:00 14:00 Breakfast Supper Temperature 98.4 F Respiratory 35 H 33 H Rate Respiratory Depth Respiratory Effort O2 Sat by Pulse 98 Oximetry (%) Oxygen Delivery Venturi Mask Method Fraction of 40 Inspired Oxygen (FIO2) Oxygen Flow Rate 12/30/19 12/30/19 12/30/19 15:41 16:00 18:00 Breakfast Supper Temperature 97.2 F L Respiratory 25 H 30 H Rate Respiratory Depth Respiratory Effort O2 Sat by Pulse 100 97 Oximetry (%) Oxygen Delivery Venturi Mask Venturi Mask Method Fraction of 50 40 Inspired Oxygen (FIO2) Oxygen Flow 12 Rate 12/30/19 12/30/19 12/30/19 20:00 21:00 22:00 Breakfast Supper NPO Temperature 96.8 F L 96.6 F L Respiratory 28 H 29 H Rate Respiratory Normal Depth Respiratory Non-Labored Effort O2 Sat by Pulse 99 Oximetry (%) Oxygen Delivery Venturi Mask Method Fraction of 50 Inspired Oxygen (FIO2) Oxygen Flow Rate 12/30/19 12/31/19 12/31/19 23:39 00:00 02:00 Breakfast Supper Temperature 96 F L Respiratory 29 H 27 H Rate Respiratory Depth Respiratory Effort O2 Sat by Pulse 99 Oximetry (%) Oxygen Delivery Venturi Mask Method Fraction of 50 Inspired Oxygen (FIO2) Oxygen Flow Rate 12/31/19 12/31/19 12/31/19 04:00 06:00 08:00 Breakfast Supper Temperature 96.2 F L 97 F L Respiratory 33 H 27 H 27 H Rate Respiratory Depth Respiratory Effort O2 Sat by Pulse Oximetry (%) Oxygen Delivery Method Fraction of Inspired Oxygen (FIO2) Oxygen Flow Rate Laboratory Tests 12/27/19 12/31/19 06:45 05:00 WBC 11.0 H 6.4 Laboratory Tests 12/26/19 12/27/19 12/27/19 01:10 17:30 17:30 COVID-19 (ABBY) Not detected EBV EA IgG Ab Interp Pending HSV I DNA Quant (PCR) Pending HSV II DNA Quant (PCR) Pending 12/27/19 12/27/19 17:30 17:30 COVID-19 (ABBY) EBV EA IgG Ab Interp Pending HSV I DNA Quant (PCR) Pending HSV II DNA Quant (PCR) Pending NGT in place. This is my first consult with this pt and first admission to [facility]. History Source: Medical Record Limitations to Obtaining History: Clinical Condition - Past Medical History [employer]: Yes: Seizure - Smoking History Smoking history: Never smoked - Alcohol/Substance Use Hx Alcohol Use: No History - Admission Reason For Visit: DEPENDENT ON VENTILATOR, STATUS EPILEPTICUS - Diagnostics X-ray: Report Reviewed - General Mental Status: Forgetful, Vague, Confused, Flat Affect Attention: Mild Impairment Ability to Follow Directions: Fair, Poor (may be exacerbated by not hearing directives because of mask) Head/Neck Control: Needs Assist - Hearing Hearing Aide: No Speech Evaluation - Communication Primary Language: WOLOF Communication: Yes: Simple Responses (dysfluent, hypophonic, dysphonic) Oral Expression Ability: Yes: Moderate Impairment, Severe Impairment - Speech Production Able to Make Needs Known: Yes: Moderately Impaired, Severely Impaired Intelligibility: Yes: Moderately Impaired - Speech Characteristics Voice Loudness: Moderately Soft/Quiet Voice Phonatory-based Quality: Yes: Breathy, Dysphonia Speech Pattern: Impaired Speech Clarity: < 25% Nasal Resonance: Normal Articulation: Yes: Precise Dysfluency: Yes: Clonic Voice, Other Observations: Yes: Inadequate Breath Support - Language/Verbal Expression Able to Respond to Simple Queries: Yes: Moderately Impaired, Severely Impaired Able to Communicate Wants and Needs: Yes: Moderately Impaired, Severely Impaired Functional Communication Status: Yes: Moderately Impaired, Severely Impaired - Swallow Evaluation/Bedside Assessment Current Nutritional Intake: NPO, NG Tube Oral Secretions: Yes: WFL Facial Symmetry at Rest: Symmetrical Laryngeal Elevation: Impaired Laryngeal Movement: Reduced Excursion, Labored,delay initiation, Reduced Velocity Bolus Size: Small Labial Seal: Impaired Bilaterally Oral Prep Time: Increased A-P Transit: Impaired Pocketing: Present Bilaterally Timing of Swallow: Delayed Coughing/Throat Clear: No Recommendations - Speech Evaluation, Impression/Plan Impression: dysfluent, hypophonic, dysphonic, dysphagia. What is pt's baseline communication status? Suspect dysphonia may be post extubation. Pooling in oral cavity with impaired dominique-pharyngeal transfer and quite delayed swallow, triggered repeatedly with suspician for stasis/ silent aspiration? Dysphagia with high risk for aspiration presently - Disposition Discharge to: To be Determined - Dysphagia Impressions/Plan Swallowing Skills: Impaired Dysphagia Impressions: Severe Impairment, Suspect Aspiration *Silent aspiration: cannot be R/O at bedside Recommendations: Modified Barium Swallow (when stronger, voice improved), Other (ngt feedings for now, hob elevated)
[2019-12-31] MEDS: MULTIVITAMINS (DAILY MVI) TABLET (FP) PO SCH (10:50)
[2019-12-31] MEDS: ASCORBIC ACID 500 MG TABLET (FP) PO SCH ×2 (10:50→22:20)
[2019-12-31] MEDS: NYSTATIN 100,000 UNIT/GM TOPICAL CREAM 15 GM TUBE TP SCH (10:50)
--- NOTE | 2019-12-31 11:47 | PN ---
Physical Exam: SUBJECTIVE: Patient seen and examined. Afebriel and asymptomatic. Chest PT for mucus plug removal, on NC. Plan to transfer to med surg. OBJECTIVE: Vital Signs Period Temp Pulse Resp BP Sys/Gama Pulse Ox Last 24 Hr 96 F-98.4 F 77-108 25-35 101-144/56-93 97-100 GENERAL: extubated on NC HEENT: no e/o facial or head trauma, no acute oropharyngeal ulcerations, PERRL NECK/BACK: no obvious neck hematoma or other trauma CARDIOVASCULAR: regular rhythm and tachycardic, no MGR, strong peripheral pulses, lukewarm extremities LUNGS/RESPIRATORY: breath sounds coarse but no focal area of decreased sounds GI/ABDOMEN: symmetric, atraumatic outwardly : Altman in place, normal external appearance MSK/EXTREMITIES: no evidence of acute trauma DERM/SKIN: dry, no jaundice, no rash, no pathologic-appearing bruising NEUROLOGICAL: unable to assess A/O given that the patient coming off sedation, +brainstem reflexes, patient is otherwise unable to participate in exam. Baseline difficulty communicating. Laboratory Results - last 24 hr 12/30/19 12/30/19 12/30/19 17:06 20:00 21:44 WBC RBC Hgb Hct MCV MCH MCHC RDW Plt Count MPV Sodium Potassium 3.6 Chloride Carbon Dioxide Anion Gap BUN Creatinine Est GFR (CKD-EPI)AfAm Est GFR (CKD-EPI)NonAf POC Glucometer 76 77 Random Glucose Calcium Phosphorus Magnesium 12/31/19 12/31/19 12/31/19 05:00 05:00 06:24 WBC 6.4 RBC 3.34 L Hgb 10.2 L Hct 31.4 L D MCV 94.0 MCH 30.5 MCHC 32.5 RDW 15.9 H Plt Count 117 L MPV 9.0 Sodium 151 H Potassium 3.2 L Chloride 118 H Carbon Dioxide 26 Anion Gap 7 L BUN 6.8 L Creatinine 0.6 Est GFR (CKD-EPI)AfAm 139.78 Est GFR (CKD-EPI)NonAf 120.61 POC Glucometer 73 Random Glucose 96 Calcium 8.5 Phosphorus 3.4 Magnesium 1.7 L Active Medications Generic Name Dose Route Start Last Admin Trade Name Freq PRN Reason Stop Dose Admin Ascorbic Acid 500 mg 12/28/19 10:00 12/30/19 21:15 Vitamin C - PO 500 mg BID CARL Administration Chlorhexidine Gluconate 1 applic 12/26/19 22:00 12/30/19 21:15 Hibiclens For Decolonization - TP 1 applic HS CARL Administration Heparin Sodium (Porcine) 5,000 unit 12/30/19 13:15 12/31/19 09:01 Heparin - SQ 5,000 unit BID CARL Administration Piperacillin Sod/Tazobactam 100 mls @ 200 mls/hr 12/28/19 10:45 12/31/19 09:00 Sod 4.5 gm/ Dextrose IVPB 200 mls/hr Q8H-IV CARL Administration Protocol Insulin Aspart 1 vial 12/26/19 11:00 12/31/19 06:25 Novolog Vial Sliding Scale - SQ Not Given ACHS CARL Protocol Levetiracetam 1,500 mg 12/26/19 11:15 12/31/19 09:01 Keppra Injection - IVPB 1,500 mg BID CARL Administration Multivitamins/Minerals/Vitamin C 1 tab 12/27/19 10:00 12/30/19 10:21 Tab-A-Vit - PO 1 tab DAILY CARL Administration Nystatin 1 applic 12/27/19 10:00 12/30/19 10:21 Mycostatin Cream - TP 1 applic DAILY [facility]L Administration Pantoprazole Sodium 40 mg 12/26/19 11:00 12/31/19 09:01 Protonix Iv IVPUSH 40 mg DAILY [facility] Administration Potassium Chloride 20 meq 12/27/19 10:00 12/30/19 10:21 K-Dur - PO 20 meq DAILY [facility]L Administration Valproate Sodium 1,500 mg 12/26/19 14:00 12/31/19 06:28 Depacon Injection - IVPB 1,500 mg TID [facility]L Administration ASSESSMENT/PLAN: 34YOF with h/o epilepsy, prior TBI, on eliquis, who p/w status epilepticus in the setting of recent visit to [facility] for seizure with head injury from fall with normal initial HCT at that time (12/24/19). Also found febrile tonight. #NEURO/PSYCH: Status epilepticus, h/o TBI- [facility] unsure of when. MR/DD CT: s/p craniotomy, encephalomalacia noted, no hemorrhage 1500 mg Keppra BID + [address] Shay following in consult for Neurology On zosyn, will likely d/c Baseline mental status- bed bound, hallucination, confused Extubated on NC 2L Brain MRI ordered- f/u #CV Avoid QT prolonging medications Consulted Cardio: Echocardiogram shows normal LV wall motion and systolic function. Eliquis BID started by [facility] for dvt ppx #Pulm Extubated on NC COVID neg Pt discharged in september to [facility] from [place] for Acute hypoxic resp failure 2/2 to COVID+ CXR: left hemithorax opacification /2 to mucus plug- pt will cough it out Chest PT/ Respiratory therapy for mucus plug relief #ENDOCRINE: Stable Monitor #GI swallow eval done- pt not ready to tolerate PO diet Will cont NGT tube feeding #RENAL/ Monitor #HEME: -Monitor #ID: BCx- 1 bottle growing SCoN r/p BCx pending ID consulted s/p LP- no sign of bacterial meningitis On zosyn, will likely d/c tomorrow #DERM: Stable -Monitor IO placed from ED? Removed in ICU #Lines RIJ 12/25 FEN: off IVF Tube feeds for now, reassess tomorrow if pt can tolerate PO monitor lytes Prophylaxis: DVT: will cont heparin sq, (Pt on Eliquis at [facility] for dvt ppx? not sure why as eliquis is used for dvt ppx in pts w/ hip/knee replacement- hold eliquis for now) GI: protonix Dispo: cont ICU monitoring, cont abx, antiepileptics, monitor off vent, if seizes, give ativan and if seizing cont, consider Dilantin, transfer to med- surg, pt stable and on NC 2L Code Status/Family Conversation: Full Code (per [facility] paperwork) Brother Lars Busby at the number in [facility] paperwork ([phone]) Brother on [place] paperwork ([phone]), reached patient's uncle Abdoul Busby, got updated number for brother Eric. Schreiber ([phone]) Visit type - Emergency Visit Emergency Visit: Yes ED Registration Date: 12/25/19 Care time: The patient presented to the Emergency Department on the above date and was hospitalized for further evaluation of their emergent condition. - New Patient This patient is new to me today: Yes Date on this admission: 01/01/20 - Critical Care Critical Care patient: No - Discharge Referral Referred to [facility] Med P.C.: No ATTENDING PHYSICIAN STATEMENT I saw and evaluated the patient. I reviewed the resident's note and discussed the case with the resident. I agree with the resident's findings and plan as documented. SUBJECTIVE: OBJECTIVE: ASSESSMENT AND PLAN:
--- NOTE | 2019-12-31 13:39 | PN ---
Teaching Attending Note Name of Resident: Kane Matta ATTENDING PHYSICIAN STATEMENT I saw and evaluated the patient. I reviewed the resident's note and discussed the case with the resident. I agree with the resident's findings and plan as documented. SUBJECTIVE: Patient seen and examined in the ICU. Remains extubated. Eyes are open but not able to follow commands. No seizure noted. Intake & Output 12/28/19 12/29/19 12/30/19 12/31/19 23:59 23:59 23:59 23:59 Intake Total 3702.8 5010.6 1712.3 1580 Output Total 3220 3100 2950 1600 Balance 482.8 1910.6 -1237.7 -20 Weight 208 lb 6 oz 216 lb 7.903 oz 208 lb 9.6 oz Last Vital Signs Temp Pulse Resp BP Pulse Ox 98.2 F 98 H 30 H 118/70 99 12/31/19 10:00 12/31/19 12:00 12/31/19 12:00 12/31/19 12:00 12/30/19 23:39 Active Medications Ascorbic Acid (Vitamin C -) 500 mg PO BID [facility] Last Admin: 12/30/19 21:15 Dose: 500 mg Documented by: Chlorhexidine Gluconate (Hibiclens For Decolonization -) 1 applic TP HS [facility] Last Admin: 12/30/19 21:15 Dose: 1 applic Documented by: Heparin Sodium (Porcine) (Heparin -) 5,000 unit SQ BID [facility] Last Admin: 12/31/19 09:01 Dose: 5,000 unit Documented by: Piperacillin Sod/Tazobactam (Sod 4.5 gm/ Dextrose) 100 mls @ 200 mls/hr IVPB Q8H-IV [facility]; Protocol Last Admin: 12/31/19 09:00 Dose: 200 mls/hr Documented by: Insulin Aspart (Novolog Vial Sliding Scale -) 1 vial SQ ACHS [facility]; Protocol Last Admin: 12/31/19 06:25 Dose: Not Given Documented by: Levetiracetam (Keppra Injection -) 1,500 mg IVPB BID [facility] Last Admin: 12/31/19 09:01 Dose: 1,500 mg Documented by: Multivitamins/Minerals/Vitamin C (Tab-A-Vit -) 1 tab PO DAILY [facility] Last Admin: 06/15/20 10:21 Dose: 1 tab Documented by: Nystatin (Mycostatin Cream -) 1 applic TP DAILY [facility] Last Admin: 12/30/19 10:21 Dose: 1 applic Documented by: Pantoprazole Sodium (Protonix Iv) 40 mg IVPUSH DAILY [facility] Last Admin: 12/31/19 09:01 Dose: 40 mg Documented by: Potassium Chloride (K-Dur -) 40 meq PO DAILY [facility] Valproate Sodium (Depacon Injection -) 1,500 mg IVPB TID [facility] Last Admin: 12/31/19 06:28 Dose: 1,500 mg Documented by: Gen: Extubated, eyes are open, not following commands Neck: supple Heart: RRR Lung: decreased breath sounds at the bases Abd: soft, nontender Ext: no edema Laboratory Results - last 24 hr 12/30/19 12/30/19 12/30/19 17:06 20:00 21:44 WBC RBC Hgb Hct MCV MCH MCHC RDW Plt Count MPV Sodium Potassium 3.6 Chloride Carbon Dioxide Anion Gap BUN Creatinine Est GFR (CKD-EPI)AfAm Est GFR (CKD-EPI)NonAf POC Glucometer 76 77 Random Glucose Calcium Phosphorus Magnesium 12/31/19 12/31/19 12/31/19 05:00 05:00 06:24 WBC 6.4 RBC 3.34 L Hgb 10.2 L Hct 31.4 L D MCV 94.0 MCH 30.5 MCHC 32.5 RDW 15.9 H Plt Count 117 L MPV 9.0 Sodium 151 H Potassium 3.2 L Chloride 118 H Carbon Dioxide 26 Anion Gap 7 L BUN 6.8 L Creatinine 0.6 Est GFR (CKD-EPI)AfAm 139.78 Est GFR (CKD-EPI)NonAf 120.61 POC Glucometer 73 Random Glucose 96 Calcium 8.5 Phosphorus 3.4 Magnesium 1.7 L ASSESS: Status Epilepticus Acute Respiratory Failure UTI Bacteremia Sepsis +Troponins likely Demand Ischemia Recent COVID19 Bipolar Disorder Mental Retardation DM h/o TBI h/o DVT Anemia PLAN: - AEDs per neuro - ABX per ID - Monitor UOP and BMP - Replete electrolytes - Cont anticoagulation - enteral feeds - DVT/GI prophylaxis - MRI per Neuro - Floor Dr Jeffrey Poe
[2019-12-31] MEDS: POLYETHYLENE GLYCOL 3350 255 GM BTL PO SCH (13:55)
--- NOTE | 2019-12-31 15:13 | PN ---
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, Physician History of Present Illness: AWAKE ON VENTILATOR OFF SEDATION BC SCN X 1 URINE C/S PROTEUS WBC WNL PLT COUNT LOW CXR OPACIFIED L HEMITHORAX - Current Medication List Current Medications: Active Medications Ascorbic Acid (Vitamin C -) 500 mg PO BID [facility] Last Admin: 12/31/19 10:50 Dose: 500 mg Documented by: Chlorhexidine Gluconate (Hibiclens For Decolonization -) 1 applic TP HS [facility] Last Admin: 12/30/19 21:15 Dose: 1 applic Documented by: Heparin Sodium (Porcine) (Heparin -) 5,000 unit SQ BID [facility] Last Admin: 12/31/19 09:01 Dose: 5,000 unit Documented by: Piperacillin Sod/Tazobactam (Sod 4.5 gm/ Dextrose) 100 mls @ 200 mls/hr IVPB Q8H-IV [facility]; Protocol Last Admin: 12/31/19 09:00 Dose: 200 mls/hr Documented by: Insulin Aspart (Novolog Vial Sliding Scale -) 1 vial SQ ACHS [facility]; Protocol Last Admin: 12/31/19 13:54 Dose: Not Given Documented by: Levetiracetam (Keppra Injection -) 1,500 mg IVPB BID [facility] Last Admin: 12/31/19 09:01 Dose: 1,500 mg Documented by: Multivitamins/Minerals/Vitamin C (Tab-A-Vit -) 1 tab PO DAILY [facility] Last Admin: 12/31/19 10:50 Dose: 1 tab Documented by: Nystatin (Mycostatin Cream -) 1 applic TP DAILY [facility] Last Admin: 12/31/19 10:50 Dose: 1 applic Documented by: Pantoprazole Sodium (Protonix Iv) 40 mg IVPUSH DAILY [facility] Last Admin: 12/31/19 09:01 Dose: 40 mg Documented by: Potassium Chloride (K-Dur -) 40 meq PO DAILY [facility] Valproate Sodium (Depacon Injection -) 1,500 mg IVPB TID [facility] Last Admin: 12/31/19 06:28 Dose: 1,500 mg Documented by: - Objective Vital Signs: Vital Signs Temperature 98.0 F 12/31/19 14:00 Pulse Rate 94 H 12/31/19 14:00 Respiratory Rate 29 H 12/31/19 14:00 Blood Pressure 130/74 12/31/19 14:00 O2 Sat by Pulse Oximetry (%) 100 12/31/19 10:00 Constitutional: Yes: No Distress Eyes: Yes: Conjunctiva Clear Cardiovascular: Yes: Regular Rate and Rhythm, S1, S2 Respiratory: Yes: Mechanically Ventilated Gastrointestinal: Yes: Normal Bowel Sounds, Soft. No: Tenderness Edema: Yes Labs: CBC, BMP 12/31/19 05:00 12/31/19 05:00 INR, PTT INR 1.41 (0.83-1.09) H 12/26/19 01:16 Assessment/Plan S/P SEIZURES RESP FAILURE PROBABLE ASP PNEUMONIA OPACIFIED L HEMITHORAX NO EVIDENCE OF MENINGITIS + BC SCN = CONTAMINANT UTI THROMBOCYTOPENIA ON ZOSYN FOR POSSIBLE ASPIRATION MONITOR PLT COUNT- MAY NEED TO STOP ZOSYN IF CONTINUED DROP
--- NOTE | 2019-12-31 19:48 | PN ---
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 (short form) - Note 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: 34 Year old [place] resident, history of TBI, , on eliquis for DVT, DM, Bipolar disorder. patient has only one seizure in past and was not on any AED inpast. Patiren has been on antipsychotic medicaiton and on depakote for behavior difficulty. She initialy presented with status epilepticus Patient was treated with versed and itubated. On admisisonPatient was treated for meningitis empirically, later abx were stopped after spinal tap Now: extuabted and transferred to floor, on NC. Patient is on two aed, meningitis coverage has been stopped, eeg report reviewed NEUROLOGICAL EXAMINATION extubated and opens eyes, no reponse to verbal stimuli withdraws to pain pupils reactive no seizure activity was seen limited neuro exam brain stem reflex, corneal, pupils reflex are present ct head showed right frontal lobe encephalomalacia spinal tap done wbc is 1 , and protein 90 ( less likely to be mningitis based upon ressults) mri pending Assessment/Plan 34 year old [place] resident, history of TBI, , on eliquis for DVT, DM, Bipolar disorder. She is on multiple psych medicaiton including antidepressant and antipsychotic medicaiton , and depakote. Patient has only one seizur ein past. Ct head showed encephalomalacia, Admitted for statuts epilepticus rule out meningitis baseline MR and encephalomalacia, bipolar disorder PLAN - Coneitnue kegregoriora and depakote - mri of brain pending -speech consult appreciated Thanking you so much Gonsalo Shay MD
[2019-12-31] MEDS ORDERED: CHLORHEXIDINE GLUCONATE 4% CLEANSER FOR DECOLONIZATION TP SCH (22:00)
[2020-01-01] MEDS ORDERED: DEXTROSE 5%-WATER 100 ML IVPB ONE ×3 (00:29→17:37)
[2020-01-01] MEDS ORDERED: PIPERACILLIN/TAZOBACTAM 4.5 GM VIAL IVPB ONE ×3 (00:29→17:37)
[2020-01-01] MEDS: PIPERACILLIN/TAZOB 4.5 GM 4.5 GM in DEXTROSE 5%-WATER 100 ML IVPB SCH ×3 (01:17→17:45)
[2020-01-01] MEDS ORDERED: PT OWN MED DRAWER 7, Y5N ONE ×3 (05:52→13:33)
[2020-01-01] MEDS: VALPROATE SODIUM 500 MG/5 ML VIAL IVPB SCH ×3 (05:59→22:53)
[2020-01-01] MEDS: INSULIN SLIDING SCALE (NOVOLOG) 1 VIAL SQ SCH ×4 (06:32→21:55)
[2020-01-01 07:09] LABS: HEMATOCRIT 32.7 % (32.4-45.2); HEMOGLOBIN 10.6 GM/dL (10.7-15.3); MCH 30.7 pg (25.7-33.7); MCHC 32.4 g/dl (32.0-36.0); MEAN CELL VOLUME 94.7 fl (80-96); MEAN PLT VOLUME 9.6 fl (7.5-11.1); PLATELET COUNT 120 K/MM3 (134-434); RBC 3.45 M/mm3 (3.60-5.2); RDW 15.9 % (11.6-15.6); WHITE BLOOD COUNT 7.1 K/mm3 (4.0-10.0)
--- NOTE | 2020-01-01 07:41 | PN ---
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, Physician History of Present Illness: pulmonary no distress,on nasal o2,opens eyes, not responsive - Current Medication List Current Medications: Active Medications Ascorbic Acid (Vitamin C -) 500 mg PO BID [facility] Last Admin: 12/31/19 22:20 Dose: 500 mg Documented by: Heparin Sodium (Porcine) (Heparin -) 5,000 unit SQ BID [facility] Last Admin: 12/31/19 22:20 Dose: 5,000 unit Documented by: Piperacillin Sod/Tazobactam (Sod 4.5 gm/ Dextrose) 100 mls @ 200 mls/hr IVPB Q8H-IV [facility]; Protocol Last Admin: 01/01/20 01:17 Dose: 200 mls/hr Documented by: Insulin Aspart (Novolog Vial Sliding Scale -) 1 vial SQ ACHS [facility]; Protocol Last Admin: 01/01/20 06:32 Dose: Not Given Documented by: Levetiracetam (Keppra Injection -) 1,500 mg IVPB BID [facility] Last Admin: 12/31/19 22:21 Dose: 1,500 mg Documented by: Multivitamins/Minerals/Vitamin C (Tab-A-Vit -) 1 tab PO DAILY [facility] Nystatin (Mycostatin Cream -) 1 applic TP DAILY [facility] Pantoprazole Sodium (Protonix Iv) 40 mg IVPUSH DAILY [facility] Potassium Chloride (K-Dur -) 40 meq PO DAILY [facility] Valproate Sodium (Depacon Injection -) 1,500 mg IVPB TID [facility] Last Admin: 01/01/20 05:59 Dose: 1,500 mg Documented by: - Objective Vital Signs: Vital Signs Temperature 98.4 F 01/01/20 06:00 Pulse Rate 111 H 01/01/20 06:00 Respiratory Rate 22 H 12/31/19 22:00 Blood Pressure 133/78 01/01/20 06:00 O2 Sat by Pulse Oximetry (%) 96 12/31/19 21:00 Constitutional: Yes: Well Nourished, Calm Eyes: Yes: WNL HENT: Yes: WNL Neck: Yes: WNL Cardiovascular: Yes: Regular Rate and Rhythm, S1, S2 Respiratory: Yes: Diminished Gastrointestinal: Yes: Normal Bowel Sounds, Soft Extremities: Yes: WNL Edema: No Labs: INR, PTT INR 1.41 (0.83-1.09) H 12/26/19 01:16 Problem List - Problems (1) Hypokalemia Code(s): E87.6 - HYPOKALEMIA (2) Respiratory failure Code(s): J96.90 - RESPIRATORY FAILURE, UNSP, UNSP W HYPOXIA OR HYPERCAPNIA (3) Status epilepticus Code(s): G40.901 - EPILEPSY, UNSP, NOT INTRACTABLE, WITH STATUS EPILEPTICUS Assessment/Plan ASSESS: s/p Status Epilepticus s/p Acute Respiratory Failure UTI Bacteremia Sepsis +Troponins likely Demand Ischemia Recent COVID19 Bipolar Disorder Mental Retardation DM h/o TBI h/o DVT Anemia PLAN: - AEDs per neuro - ABX per ID - Monitor UOP and BMP - Replete electrolytes - Cont anticoagulation - enteral feeds - DVT/GI prophylaxis - MRI per Neuro DR BAKER
[2020-01-01 08:08] LABS: BLOOD UREA NITROGEN 11.1 mg/dL (7-18); CREATININE 0.7 mg/dL (0.55-1.3); MAGNESIUM 2.1 mg/dL (1.8-2.4); PHOSPHOROUS 2.3 mg/dL (2.5-4.9); POTASSIUM 3.2 mmol/L (3.5-5.1)
--- NOTE | 2020-01-01 09:21 | PN ---
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, Physician - Current Medication List Current Medications: Active Medications Ascorbic Acid (Vitamin C -) 500 mg PO BID [facility] Last Admin: 12/31/19 22:20 Dose: 500 mg Documented by: Heparin Sodium (Porcine) (Heparin -) 5,000 unit SQ BID [facility] Last Admin: 12/31/19 22:20 Dose: 5,000 unit Documented by: Piperacillin Sod/Tazobactam (Sod 4.5 gm/ Dextrose) 100 mls @ 200 mls/hr IVPB Q8H-IV [facility]; Protocol Last Admin: 01/01/20 01:17 Dose: 200 mls/hr Documented by: Insulin Aspart (Novolog Vial Sliding Scale -) 1 vial SQ ACHS [facility]; Protocol Last Admin: 01/01/20 06:32 Dose: Not Given Documented by: Levetiracetam (Keppra Injection -) 1,500 mg IVPB BID [facility] Last Admin: 12/31/19 22:21 Dose: 1,500 mg Documented by: Multivitamins/Minerals/Vitamin C (Tab-A-Vit -) 1 tab PO DAILY [facility] Nystatin (Mycostatin Cream -) 1 applic TP DAILY [facility] Pantoprazole Sodium (Protonix Iv) 40 mg IVPUSH DAILY [facility] Potassium Chloride (K-Dur -) 40 meq PO DAILY [facility] Valproate Sodium (Depacon Injection -) 1,500 mg IVPB TID [facility] Last Admin: 01/01/20 05:59 Dose: 1,500 mg Documented by: - Objective Vital Signs: Vital Signs Temperature 98.4 F 01/01/20 06:00 Pulse Rate 111 H 01/01/20 06:00 Respiratory Rate 22 H 12/31/19 22:00 Blood Pressure 133/78 01/01/20 06:00 O2 Sat by Pulse Oximetry (%) 96 12/31/19 21:00 Cardiovascular: Yes: S1, S2 Respiratory: Yes: Regular, CTA Bilaterally Gastrointestinal: Yes: Normal Bowel Sounds, Soft Labs: CBC, BMP 01/01/20 06:30 01/01/20 06:30 INR, PTT INR 1.41 (0.83-1.09) H 12/26/19 01:16 Problem List - Problems (1) Status epilepticus Assessment/Plan: Status epilepticus, h/o TBI- [facility] unsure of when. MR/DD CT: s/p craniotomy, encephalomalacia noted, no hemorrhage 1500 mg Keppra BID + [address] Shay following in consult for Neurology CSF unlikely for bacterial meningitis Baseline mental status- bed bound, hallucination, confused Brain MRI Code(s): G40.901 - EPILEPSY, UNSP, NOT INTRACTABLE, WITH STATUS EPILEPTICUS (2) Prolonged QT interval Assessment/Plan: Prolonged QTc, sinus tachycardia, troponinemia trending down Consulted Cardio Dr. Hu Montanez BID started by [facility] for dvt ppx ECHO wnl Code(s): R94.31 - ABNORMAL ELECTROCARDIOGRAM [ECG] [EKG] (3) Respiratory failure Assessment/Plan: COVID neg Pt discharged in september to [facility] from [place] for Acute hypoxic resp failure 2/2 to COVID+ CXR: left hemithorax opacification 2/2 to mucus plug Code(s): J96.90 - RESPIRATORY FAILURE, UNSP, UNSP W HYPOXIA OR HYPERCAPNIA
[2020-01-01] MEDS: PANTOPRAZOLE SODIUM 40 MG VIAL IVPUSH SCH (09:47)
[2020-01-01] MEDS: ASCORBIC ACID 500 MG TABLET (FP) PO SCH ×2 (09:49→21:33)
[2020-01-01] MEDS: HEPARIN NA (PORCINE) 5,000 UNITS/ML 1ML VIAL SQ SCH ×2 (09:49→21:32)
[2020-01-01] MEDS: MULTIVITAMINS (DAILY MVI) TABLET (FP) PO SCH (09:49)
[2020-01-01] MEDS: POTASSIUM CHLORIDE TABS 20 MEQ TABLET.ER (FP) PO SCH (09:49)
[2020-01-01] MEDS: levETIRAcetam 500 MG/5 ML INJECTION VIAL IVPB SCH ×2 (09:50→21:27)
--- NOTE | 2020-01-01 10:45 | PN ---
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, LOG INSPECTOR - Note 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: Selected Entries 12/31/19 12/31/19 12/31/19 00:00 02:00 04:00 Lunch Temperature 96 F L 96.2 F L Pulse Rate 88 80 77 Blood Pressure 119/62 124/75 125/71 12/31/19 12/31/19 12/31/19 06:00 08:00 10:00 Lunch NPO Temperature 97 F L 98.2 F Pulse Rate 91 H 89 94 H Blood Pressure 127/77 131/77 144/79 12/31/19 12/31/19 12/31/19 12:00 14:00 16:00 Lunch Temperature 98.0 F 98.2 F Pulse Rate 98 H 94 H 89 Blood Pressure 118/70 130/74 138/72 12/31/19 01/01/20 22:00 06:00 Lunch Temperature 98.4 F 98.4 F Pulse Rate 103 H 111 H Blood Pressure 114/89 133/78 Laboratory Tests 01/01/20 06:30 WBC 7.1 Laboratory Tests 12/26/19 12/27/19 01:10 17:30 COVID-19 (ABBY) Not detected HSV I DNA Quant (PCR) Negative HSV II DNA Quant (PCR) Negative Occasional dysfluent words produced, hypophonic, breathy voice NGT in place. Consider-MBS 01/01
[2020-01-01] MEDS: NYSTATIN 100,000 UNIT/GM TOPICAL CREAM 15 GM TUBE TP SCH ×2 (11:00→11:20)
[2020-01-01] MEDS ORDERED: INSULIN (NOVOLOG) ASPART 100 UNITS/ML 10ML VIAL ONE (21:03)
--- NOTE | 2020-01-01 22:21 | PN ---
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 (short form) - Note 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: 34 Year old female NH resident, history of TBI, , on eliquis for DVT, DM, Bipolar disorder. patient has only one seizure in past and was not on any AED inpast. Patietn has been on antipsychotic medicaiton and on depakote for behavior difficulty. She initialy presented with status epilepticus Patient was treated with versed and itubated. On admisisonPatient was treated for meningitis empirically, later abx were stopped after spinal tap Now: extuabted and transferred to floor, on NC. Patient is on two aed, meningitis coverage has been stopped, eeg report reviewed NEUROLOGICAL EXAMINATION opens eyes, no reponse to verbal stimuli withdraws to pain pupils reactive no seizure activity was seen limited neuro exam brain stem reflex, corneal, pupils reflex are present ct head showed right frontal lobe encephalomalacia spinal tap done wbc is 1 , and protein 90 ( less likely to be mningitis based upon ressults) mri of brain on december 31 no acute findings Assessment/Plan 34 year old female NH resident, history of TBIMD , on eliquis for DVT, DM, Bipolar disorder. She is on multiple psych medicaiton including antidepressant and antipsychotic medicaiton , and depakote. Patient has only one seizure in past. Ct head showed encephalomalacia, mri of brain unremarkable Admitted for statuts epilepticus rule out meningitis baseline MR and encephalomalacia, bipolar disorder PLAN - Coneitnue keppra and depakote - mri of brain showed no acute findings - abx for aspiriation pneumonia by ID , Pulmonary is also following -speech consult appreciated Thanking you so much Gonsalo Shay MD
--- NOTE | 2020-01-01 23:06 | PN ---
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, Physician History of Present Illness: AWAKE IN BED NO ACUTE DISTRESS URINE C/S PROTEUS WBC WNL PLT COUNT LOW CXR OPACIFIED L HEMITHORAX - Current Medication List Current Medications: Active Medications Ascorbic Acid (Vitamin C -) 500 mg PO BID [facility] Last Admin: 01/01/20 21:33 Dose: 500 mg Documented by: Heparin Sodium (Porcine) (Heparin -) 5,000 unit SQ BID [facility] Last Admin: 01/01/20 21:32 Dose: 5,000 unit Documented by: Piperacillin Sod/Tazobactam (Sod 4.5 gm/ Dextrose) 100 mls @ 200 mls/hr IVPB Q8H-IV [facility]; Protocol Last Admin: 01/01/20 17:45 Dose: 200 mls/hr Documented by: Insulin Aspart (Novolog Vial Sliding Scale -) 1 vial SQ ACHS [facility]; Protocol Last Admin: 01/01/20 21:55 Dose: Not Given Documented by: Levetiracetam (Keppra Injection -) 1,500 mg IVPB BID [facility] Last Admin: 01/01/20 21:27 Dose: 1,500 mg Documented by: Multivitamins/Minerals/Vitamin C (Tab-A-Vit -) 1 tab PO DAILY [facility] Last Admin: 01/01/20 09:49 Dose: 1 tab Documented by: Nystatin (Mycostatin Cream -) 1 applic TP DAILY [facility] Last Admin: 01/01/20 11:20 Dose: 1 applic Documented by: Pantoprazole Sodium (Protonix Iv) 40 mg IVPUSH DAILY [facility] Last Admin: 01/01/20 09:47 Dose: 40 mg Documented by: Potassium Chloride (K-Dur -) 40 meq PO DAILY [facility] Last Admin: 01/01/20 09:49 Dose: 40 meq Documented by: Valproate Sodium (Depacon Injection -) 1,500 mg IVPB TID [facility] Last Admin: 01/01/20 22:53 Dose: 1,500 mg Documented by: - Objective Vital Signs: Vital Signs Temperature 98.4 F 01/01/20 22:00 Pulse Rate 105 H 01/01/20 22:00 Respiratory Rate 17 01/01/20 22:00 Blood Pressure 141/70 01/01/20 22:00 O2 Sat by Pulse Oximetry (%) 98 01/01/20 09:00 Constitutional: Yes: Obese Cardiovascular: Yes: Regular Rate and Rhythm, S1, S2 Respiratory: Yes: CTA Bilaterally Gastrointestinal: Yes: Normal Bowel Sounds, Soft Edema: No Labs: CBC, BMP 01/01/20 06:30 01/01/20 06:30 INR, PTT INR 1.41 (0.83-1.09) H 12/26/19 01:16 Assessment/Plan S/P SEIZURES RESP FAILURE PROBABLE ASP PNEUMONIA OPACIFIED L HEMITHORAX NO EVIDENCE OF MENINGITIS + BC SCN = CONTAMINANT UTI THROMBOCYTOPENIA ON ZOSYN FOR POSSIBLE ASPIRATION MONITOR PLT COUNT- MAY NEED TO STOP ZOSYN IF CONTINUED DROP
[2020-01-02] MEDS ORDERED: PIPERACILLIN/TAZOBACTAM 4.5 GM VIAL IVPB ONE ×3 (00:20→18:34)
[2020-01-02] MEDS ORDERED: DEXTROSE 5%-WATER 100 ML IVPB ONE ×3 (00:20→18:34)
[2020-01-02] MEDS: PIPERACILLIN/TAZOB 4.5 GM 4.5 GM in DEXTROSE 5%-WATER 100 ML IVPB SCH ×3 (01:57→18:47)
[2020-01-02] MEDS: VALPROATE SODIUM 500 MG/5 ML VIAL IVPB SCH ×3 (05:46→22:27)
[2020-01-02] MEDS: INSULIN SLIDING SCALE (NOVOLOG) 1 VIAL SQ SCH ×4 (06:19→22:34)
--- NOTE | 2020-01-02 07:52 | PN ---
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, Physician History of Present Illness: PULMONARY NO CHANGE,AWAKE,EYES OPEN,NOT RESPONSIVE. MRI UNREMARKABLE - Current Medication List Current Medications: Active Medications Ascorbic Acid (Vitamin C -) 500 mg PO BID [facility] Last Admin: 01/01/20 21:33 Dose: 500 mg Documented by: Heparin Sodium (Porcine) (Heparin -) 5,000 unit SQ BID [facility] Last Admin: 01/01/20 21:32 Dose: 5,000 unit Documented by: Piperacillin Sod/Tazobactam (Sod 4.5 gm/ Dextrose) 100 mls @ 200 mls/hr IVPB Q8H-IV [facility]; Protocol Last Admin: 01/02/20 01:57 Dose: 200 mls/hr Documented by: Insulin Aspart (Novolog Vial Sliding Scale -) 1 vial SQ ACHS [facility]; Protocol Last Admin: 01/02/20 06:19 Dose: Not Given Documented by: Levetiracetam (Keppra Injection -) 1,500 mg IVPB BID [facility] Last Admin: 01/01/20 21:27 Dose: 1,500 mg Documented by: Multivitamins/Minerals/Vitamin C (Tab-A-Vit -) 1 tab PO DAILY [facility] Last Admin: 01/01/20 09:49 Dose: 1 tab Documented by: Nystatin (Mycostatin Cream -) 1 applic TP DAILY [facility] Last Admin: 01/01/20 11:20 Dose: 1 applic Documented by: Pantoprazole Sodium (Protonix Iv) 40 mg IVPUSH DAILY [facility] Last Admin: 01/01/20 09:47 Dose: 40 mg Documented by: Potassium Chloride (K-Dur -) 40 meq PO DAILY [facility] Last Admin: 01/01/20 09:49 Dose: 40 meq Documented by: Valproate Sodium (Depacon Injection -) 1,500 mg IVPB TID [facility] Last Admin: 01/02/20 05:46 Dose: 1,500 mg Documented by: - Objective Vital Signs: Vital Signs Temperature 97.6 F 01/02/20 06:00 Pulse Rate 106 H 01/02/20 06:00 Respiratory Rate 18 01/02/20 06:00 Blood Pressure 127/75 01/02/20 06:00 O2 Sat by Pulse Oximetry (%) 98 01/01/20 21:00 Constitutional: Yes: Well Nourished, Calm Eyes: Yes: WNL HENT: Yes: WNL Neck: Yes: WNL Cardiovascular: Yes: Regular Rate and Rhythm, S1, S2 Respiratory: Yes: CTA Bilaterally Gastrointestinal: Yes: Normal Bowel Sounds, Soft Extremities: Yes: WNL Edema: No Labs: CBC, BMP 01/01/20 06:30 Problem List - Problems (1) Hypokalemia Code(s): E87.6 - HYPOKALEMIA (2) Respiratory failure Code(s): J96.90 - RESPIRATORY FAILURE, UNSP, UNSP W HYPOXIA OR HYPERCAPNIA (3) Status epilepticus Code(s): G40.901 - EPILEPSY, UNSP, NOT INTRACTABLE, WITH STATUS EPILEPTICUS Assessment/Plan ASSESS: s/p Status Epilepticus s/p Acute Respiratory Failure UTI Bacteremia Sepsis +Troponins likely Demand Ischemia Recent COVID19 Bipolar Disorder Mental Retardation DM h/o TBI h/o DVT Anemia PLAN: - AEDs per neuro - ABX per ID - Monitor UOP and BMP - Replete electrolytes - Cont anticoagulation - enteral feeds - DVT/GI prophylaxis DR BAKER
--- NOTE | 2020-01-02 09:25 | PN ---
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, Physician History of Present Illness: AWAKE IN BED BC SCN X 1 URINE C/S PROTEUS WBC WNL PLT COUNT LOW CXR OPACIFIED L HEMITHORAX - Current Medication List Current Medications: Active Medications Ascorbic Acid (Vitamin C -) 500 mg PO BID [facility] Last Admin: 01/01/20 21:33 Dose: 500 mg Documented by: Heparin Sodium (Porcine) (Heparin -) 5,000 unit SQ BID [facility] Last Admin: 01/01/20 21:32 Dose: 5,000 unit Documented by: Piperacillin Sod/Tazobactam (Sod 4.5 gm/ Dextrose) 100 mls @ 200 mls/hr IVPB Q8H-IV [facility]; Protocol Last Admin: 01/02/20 01:57 Dose: 200 mls/hr Documented by: Insulin Aspart (Novolog Vial Sliding Scale -) 1 vial SQ ACHS [facility]; Protocol Last Admin: 01/02/20 06:19 Dose: Not Given Documented by: Levetiracetam (Keppra Injection -) 1,500 mg IVPB BID [facility] Last Admin: 01/01/20 21:27 Dose: 1,500 mg Documented by: Multivitamins/Minerals/Vitamin C (Tab-A-Vit -) 1 tab PO DAILY [facility] Last Admin: 01/01/20 09:49 Dose: 1 tab Documented by: Nystatin (Mycostatin Cream -) 1 applic TP DAILY [facility] Last Admin: 01/01/20 11:20 Dose: 1 applic Documented by: Pantoprazole Sodium (Protonix Iv) 40 mg IVPUSH DAILY [facility] Last Admin: 01/01/20 09:47 Dose: 40 mg Documented by: Potassium Chloride (K-Dur -) 40 meq PO DAILY [facility] Last Admin: 01/01/20 09:49 Dose: 40 meq Documented by: Valproate Sodium (Depacon Injection -) 1,500 mg IVPB TID [facility] Last Admin: 01/02/20 05:46 Dose: 1,500 mg Documented by: - Objective Vital Signs: Vital Signs Temperature 97.6 F 01/02/20 06:00 Pulse Rate 106 H 01/02/20 06:00 Respiratory Rate 18 01/02/20 06:00 Blood Pressure 127/75 01/02/20 06:00 O2 Sat by Pulse Oximetry (%) 98 01/02/20 09:00 Constitutional: Yes: No Distress, Obese Eyes: Yes: Conjunctiva Clear Cardiovascular: Yes: Regular Rate and Rhythm, S1, S2 Respiratory: Yes: Diminished Gastrointestinal: Yes: Normal Bowel Sounds, Soft, Tenderness Edema: No Labs: CBC, BMP 01/01/20 06:30 01/01/20 06:30 INR, PTT INR 1.41 (0.83-1.09) H 12/26/19 01:16 Assessment/Plan S/P SEIZURES RESP FAILURE PROBABLE ASP PNEUMONIA OPACIFIED L HEMITHORAX NO EVIDENCE OF MENINGITIS + BC SCN = CONTAMINANT UTI THROMBOCYTOPENIA ON ZOSYN FOR POSSIBLE ASPIRATION MONITOR PLT COUNT- MAY NEED TO STOP ZOSYN IF CONTINUED DROP
[2020-01-02] MEDS: HEPARIN NA (PORCINE) 5,000 UNITS/ML 1ML VIAL SQ SCH ×2 (10:31→22:19)
[2020-01-02] MEDS: POTASSIUM CHLORIDE TABS 20 MEQ TABLET.ER (FP) PO SCH (10:31)
[2020-01-02] MEDS: levETIRAcetam 500 MG/5 ML INJECTION VIAL IVPB SCH ×2 (10:31→22:20)
[2020-01-02] MEDS: NYSTATIN 100,000 UNIT/GM TOPICAL CREAM 15 GM TUBE TP SCH (10:34)
[2020-01-02] MEDS: ASCORBIC ACID 500 MG TABLET (FP) PO SCH ×2 (10:35→22:21)
[2020-01-02] MEDS: PANTOPRAZOLE SODIUM 40 MG VIAL IVPUSH SCH (10:35)
[2020-01-02] MEDS: MULTIVITAMINS (DAILY MVI) TABLET (FP) PO SCH (10:35)
[2020-01-02] MEDS ORDERED: PT OWN MED DRAWER 7, Y5N ONE ×2 (11:27→15:39)
--- NOTE | 2020-01-02 12:51 | PN ---
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, Physician Chief Complaint: Status Epilepticus Acute Respiratory Failure UTI Bacteremia Sepsis +Troponins likely Demand Ischemia Recent COVID19 Bipolar Disorder Mental Retardation DM h/o TBI h/o DVT Anemia - Current Medication List Current Medications: Active Medications Ascorbic Acid (Vitamin C -) 500 mg PO BID [facility] Last Admin: 01/02/20 10:35 Dose: 500 mg Documented by: Heparin Sodium (Porcine) (Heparin -) 5,000 unit SQ BID [facility] Last Admin: 01/02/20 10:31 Dose: 5,000 unit Documented by: Piperacillin Sod/Tazobactam (Sod 4.5 gm/ Dextrose) 100 mls @ 200 mls/hr IVPB Q8H-IV [facility]; Protocol Last Admin: 01/02/20 10:35 Dose: 200 mls/hr Documented by: Insulin Aspart (Novolog Vial Sliding Scale -) 1 vial SQ ACHS [facility]; Protocol Last Admin: 01/02/20 12:37 Dose: Not Given Documented by: Levetiracetam (Keppra Injection -) 1,500 mg IVPB BID [facility] Last Admin: 01/02/20 10:31 Dose: 1,500 mg Documented by: Multivitamins/Minerals/Vitamin C (Tab-A-Vit -) 1 tab PO DAILY [facility] Last Admin: 01/02/20 10:35 Dose: 1 tab Documented by: Nystatin (Mycostatin Cream -) 1 applic TP DAILY [facility] Last Admin: 01/02/20 10:34 Dose: 1 applic Documented by: Pantoprazole Sodium (Protonix Iv) 40 mg IVPUSH DAILY [facility] Last Admin: 01/02/20 10:35 Dose: 40 mg Documented by: Potassium Chloride (Potassium Chloride Oral Liquid) 40 meq PO DAILY [facility] Valproate Sodium (Depacon Injection -) 1,500 mg IVPB TID [facility] Last Admin: 01/02/20 05:46 Dose: 1,500 mg Documented by: - Objective Vital Signs: Vital Signs Temperature 98 F 01/02/20 10:00 Pulse Rate 110 H 01/02/20 10:00 Respiratory Rate 18 01/02/20 10:00 Blood Pressure 151/64 01/02/20 10:00 O2 Sat by Pulse Oximetry (%) 98 01/02/20 09:00 Constitutional: Yes: Well Nourished, No Distress, Calm Cardiovascular: Yes: Regular Rate and Rhythm Respiratory: Yes: Regular, CTA Bilaterally Gastrointestinal: Yes: Normal Bowel Sounds, Soft, Abdomen, Obese Genitourinary: Yes: Incontinence Musculoskeletal: Yes: Muscle Weakness Edema: No Peripheral Pulses WNL: Yes Neurological: Yes: Alert, Pre-Existing Deficit Labs: CBC, BMP 01/01/20 06:30 01/01/20 06:30 INR, PTT INR 1.41 (0.83-1.09) H 12/26/19 01:16 Problem List - Problems (1) Anemia Assessment/Plan: -Iron, B12 unremarkable -stool OB negative -Thyroid profile normal -monitor trend Problems reviewed: Yes Code(s): D64.9 - ANEMIA, UNSPECIFIED (2) Diabetes Assessment/Plan: -A1c at 5.1 -D/C BGM AC HS -D/C ISS Problems reviewed: Yes Code(s): E11.9 - TYPE 2 DIABETES MELLITUS WITHOUT COMPLICATIONS (3) Dysphagia Assessment/Plan: -Speech pathology on board -MBS when pt more awake Problems reviewed: Yes Code(s): R13.10 - DYSPHAGIA, UNSPECIFIED (4) Failure to thrive Assessment/Plan: -Continue NGT feed -Speech pathology on board -MBS when pt passes bedside swallow Problems reviewed: Yes Code(s): TOB0422 - (5) History of DVT (deep vein thrombosis) Assessment/Plan: -There's no record of when did pt have DVT's. Pt's uncle doesn't know when it was. -Lovenox 100 mg BID Problems reviewed: Yes Code(s): Z86.718 - PERSONAL HISTORY OF OTHER VENOUS THROMBOSIS AND EMBOLISM (6) Metabolic encephalopathy Assessment/Plan: -resolved Problems reviewed: Yes Code(s): G93.41 - METABOLIC ENCEPHALOPATHY (7) Status epilepticus Assessment/Plan: -Neurology on board -MRI brain unremarkable -CSF negative for any acute etiology -Continue Depakote- change to NGT -Continue Keppra- change to NGT -CT head showed right frontal lobe encephalomalacia Problems reviewed: Yes Code(s): G40.901 - EPILEPSY, UNSP, NOT INTRACTABLE, WITH STATUS EPILEPTICUS Assessment/Plan See problem list
[2020-01-02 13:54] LABS: BASO % 0.2 % (0-2.0); EOS % 2.1 % (0-4.5); HEMATOCRIT 30.2 % (32.4-45.2); HEMOGLOBIN 9.7 GM/dL (10.7-15.3); MCH 31.1 pg (25.7-33.7); MCHC 32.1 g/dl (32.0-36.0); MEAN CELL VOLUME 96.8 fl (80-96); MEAN PLT VOLUME 9.4 fl (7.5-11.1); MONO % 5.7 % (3.8-10.2); PLATELET COUNT 113 K/MM3 (134-434); RBC 3.12 M/mm3 (3.60-5.2); RDW 15.4 % (11.6-15.6); WHITE BLOOD COUNT 5.3 K/mm3 (4.0-10.0)
[2020-01-02 14:03] VITALS: BMI 33.5
[2020-01-02 14:20] LABS: ANISOCYTOSIS 1+; MACROCYTOSIS 0; PLATELET ESTIMATE DECREASED
[2020-01-02 14:39] LABS: ALBUMIN 2.2 g/dl (3.4-5.0); BILIRUBIN,TOTAL 0.3 mg/dL (0.2-1); BLOOD UREA NITROGEN 14.5 mg/dL (7-18); CALCIUM 9.6 mg/dL (8.5-10.1); CREATININE 0.6 mg/dL (0.55-1.3); POTASSIUM 3.4 mmol/L (3.5-5.1); TOT PROT 5.7 g/dl (6.4-8.2)
--- NOTE | 2020-01-02 14:48 | PN ---
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 At that time, pt was verbal, hypophonic,dysphonic, dysfluent. Selected Entries 01/02/20 01/02/20 01/02/20 06:00 08:58 09:00 Breakfast NPO Temperature 97.6 F Pulse Rate 106 H Blood Pressure 127/75 O2 Sat by Pulse 98 Oximetry (%) Oxygen Delivery Nasal Cannula Method 01/02/20 01/02/20 09:16 10:00 Breakfast NPO Temperature 98 F Pulse Rate 110 H Blood Pressure 151/64 O2 Sat by Pulse Oximetry (%) Oxygen Delivery Method Laboratory Tests 12/31/19 01/01/20 01/01/20 05:00 06:30 06:30 WBC 7.1 Carbon Dioxide 29 POC Glucometer Random Glucose 96 92 01/02/20 01/02/20 01/02/20 06:01 13:17 13:17 WBC 5.3 Carbon Dioxide 34 H POC Glucometer 127 Random Glucose 140 H MBS when alert and mental status improves. Continue NGT feedings for now, if not medically contraindicated.
[2020-01-02] MEDS: POTASSIUM CHLORIDE ORAL LIQUID 20 MEQ/15 ML PO SCH (18:44)
--- NOTE | 2020-01-02 21:51 | PN ---
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, Physician History of Present Illness: AWAKE IN BED NO ACUTE DISTRESS URINE C/S PROTEUS WBC WNL PLT COUNT LOW CXR OPACIFIED L HEMITHORAX - Current Medication List Current Medications: Active Medications Ascorbic Acid (Vitamin C -) 500 mg PO BID [facility] Last Admin: 01/02/20 10:35 Dose: 500 mg Documented by: Heparin Sodium (Porcine) (Heparin -) 5,000 unit SQ BID [facility] Last Admin: 01/02/20 10:31 Dose: 5,000 unit Documented by: Piperacillin Sod/Tazobactam (Sod 4.5 gm/ Dextrose) 100 mls @ 200 mls/hr IVPB Q8H-IV [facility]; Protocol Last Admin: 01/02/20 18:47 Dose: 200 mls/hr Documented by: Insulin Aspart (Novolog Vial Sliding Scale -) 1 vial SQ ACHS [facility]; Protocol Last Admin: 01/02/20 16:52 Dose: Not Given Documented by: Levetiracetam (Keppra Injection -) 1,500 mg IVPB BID [facility] Last Admin: 01/02/20 10:31 Dose: 1,500 mg Documented by: Multivitamins/Minerals/Vitamin C (Tab-A-Vit -) 1 tab PO DAILY [facility] Last Admin: 01/02/20 10:35 Dose: 1 tab Documented by: Nystatin (Mycostatin Cream -) 1 applic TP DAILY [facility] Last Admin: 01/02/20 10:34 Dose: 1 applic Documented by: Pantoprazole Sodium (Protonix Iv) 40 mg IVPUSH DAILY [facility] Last Admin: 01/02/20 10:35 Dose: 40 mg Documented by: Potassium Chloride (Potassium Chloride Oral Liquid) 40 meq PO DAILY [facility] Last Admin: 01/02/20 18:44 Dose: 40 meq Documented by: Valproate Sodium (Depacon Injection -) 1,500 mg IVPB TID [facility] Last Admin: 01/02/20 15:42 Dose: 1,500 mg Documented by: - Objective Vital Signs: Vital Signs Temperature 97.2 F L 01/02/20 18:34 Pulse Rate 116 H 01/02/20 18:34 Respiratory Rate 18 01/02/20 18:34 Blood Pressure 141/84 01/02/20 18:34 O2 Sat by Pulse Oximetry (%) 98 01/02/20 09:00 Constitutional: Yes: Obese Eyes: Yes: Conjunctiva Clear Cardiovascular: Yes: Regular Rate and Rhythm, S1, S2 Respiratory: Yes: Regular, Diminished Gastrointestinal: Yes: Normal Bowel Sounds Edema: Yes Labs: CBC, BMP 01/02/20 13:17 01/02/20 13:17 INR, PTT INR 1.41 (0.83-1.09) H 12/26/19 01:16 Assessment/Plan S/P SEIZURES RESP FAILURE PROBABLE ASP PNEUMONIA OPACIFIED L HEMITHORAX NO EVIDENCE OF MENINGITIS + BC SCN = CONTAMINANT UTI THROMBOCYTOPENIA ON ZOSYN FOR POSSIBLE ASPIRATION MONITOR PLT COUNT- MAY NEED TO STOP ZOSYN IF CONTINUED DROP
[2020-01-03] MEDS ORDERED: DEXTROSE 5%-WATER 100 ML IVPB ONE ×3 (00:01→18:00)
[2020-01-03] MEDS: PIPERACILLIN/TAZOB 4.5 GM 4.5 GM in DEXTROSE 5%-WATER 100 ML IVPB SCH ×3 (01:03→18:08)
[2020-01-03] MEDS: VALPROATE SODIUM 500 MG/5 ML VIAL IVPB SCH ×2 (05:27→13:48)
[2020-01-03] MEDS: INSULIN SLIDING SCALE (NOVOLOG) 1 VIAL SQ SCH ×3 (06:59→17:25)
[2020-01-03 07:49] LABS: BASO % 0.2 % (0-2.0); EOS % 2.3 % (0-4.5); HEMATOCRIT 29.5 % (32.4-45.2); HEMOGLOBIN 9.5 GM/dL (10.7-15.3); LYMPH % 44.1 % (8-40); MCH 30.8 pg (25.7-33.7); MCHC 32.1 g/dl (32.0-36.0); MEAN CELL VOLUME 95.8 fl (80-96); MEAN PLT VOLUME 9.4 fl (7.5-11.1); NEUT % 46.4 % (42.8-82.8); PLATELET COUNT 132 K/MM3 (134-434); RBC 3.07 M/mm3 (3.60-5.2); RDW 15.6 % (11.6-15.6)
[2020-01-03 07:50] LABS: ALBUMIN 2.4 g/dl (3.4-5.0); BILIRUBIN,TOTAL 0.2 mg/dL (0.2-1); BLOOD UREA NITROGEN 14.1 mg/dL (7-18); CALCIUM 8.9 mg/dL (8.5-10.1); CREATININE 0.6 mg/dL (0.55-1.3); POTASSIUM 3.7 mmol/L (3.5-5.1); TOT PROT 5.9 g/dl (6.4-8.2)
[2020-01-03] MEDS ORDERED: PIPERACILLIN/TAZOBACTAM 4.5 GM VIAL IVPB ONE ×3 (09:50→18:00)
[2020-01-03] MEDS: HEPARIN NA (PORCINE) 5,000 UNITS/ML 1ML VIAL SQ SCH ×2 (09:58→23:23)
[2020-01-03] MEDS: MULTIVITAMINS (DAILY MVI) TABLET (FP) PO SCH (10:01)
[2020-01-03] MEDS: POTASSIUM CHLORIDE ORAL LIQUID 20 MEQ/15 ML PO SCH (10:01)
[2020-01-03] MEDS: ASCORBIC ACID 500 MG TABLET (FP) PO SCH ×2 (10:01→23:16)
[2020-01-03] MEDS: PANTOPRAZOLE SODIUM 40 MG VIAL IVPUSH SCH (10:01)
[2020-01-03] MEDS: levETIRAcetam 500 MG/5 ML INJECTION VIAL IVPB SCH ×2 (10:37→23:17)
--- NOTE | 2020-01-03 11:24 | PN ---
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, FISHER LAMPARA NET - Note 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: Selected Entries 01/02/20 01/02/20 01/02/20 06:00 09:00 10:00 Breakfast Temperature Pulse Rate Respiratory 18 18 Rate Respiratory Depth Respiratory Effort Blood Pressure O2 Sat by Pulse 98 Oximetry (%) 01/02/20 01/02/20 01/02/20 15:22 18:34 21:00 Breakfast Temperature Pulse Rate Respiratory 18 18 20 Rate Respiratory Normal Depth Respiratory Non-Labored Effort Blood Pressure O2 Sat by Pulse 96 Oximetry (%) 01/02/20 01/03/20 01/03/20 22:00 01:31 05:51 Breakfast Temperature 99.3 F 99.4 F Pulse Rate 119 H 109 H Respiratory 20 20 20 Rate Respiratory Depth Respiratory Effort Blood Pressure 148/95 126/72 O2 Sat by Pulse Oximetry (%) 01/03/20 09:55 Breakfast NPO Temperature Pulse Rate Respiratory Rate Respiratory Depth Respiratory Effort Blood Pressure O2 Sat by Pulse Oximetry (%) Laboratory Tests 01/02/20 01/03/20 13:17 06:10 WBC 5.3 7.0 Awake, follows simple commands. Rare speech, low volume, aphonic.Pt produced dysflent words,more intelligibly in ICU. drooling. Continue NGT feedings MBS when alert and mental status improves. Monday?
--- NOTE | 2020-01-03 11:26 | PN ---
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, Physician Chief Complaint: Status Epilepticus Acute Respiratory Failure UTI Bacteremia Sepsis +Troponins likely Demand Ischemia Recent COVID19 Bipolar Disorder Mental Retardation DM h/o TBI h/o DVT Anemia History of Present Illness: NAD More alert today responding with head nods to questions with yes and no - Current Medication List Current Medications: Active Medications Ascorbic Acid (Vitamin C -) 500 mg PO BID [facility] Last Admin: 01/03/20 10:01 Dose: 500 mg Documented by: Heparin Sodium (Porcine) (Heparin -) 5,000 unit SQ BID [facility] Last Admin: 01/03/20 09:58 Dose: 5,000 unit Documented by: Piperacillin Sod/Tazobactam (Sod 4.5 gm/ Dextrose) 100 mls @ 200 mls/hr IVPB Q8H-IV [facility]; Protocol Last Admin: 01/03/20 09:59 Dose: 200 mls/hr Documented by: Insulin Aspart (Novolog Vial Sliding Scale -) 1 vial SQ ACHS [facility]; Protocol Last Admin: 01/03/20 06:59 Dose: Not Given Documented by: Levetiracetam (Keppra Injection -) 1,500 mg IVPB BID [facility] Last Admin: 01/02/20 22:20 Dose: 1,500 mg Documented by: Multivitamins/Minerals/Vitamin C (Tab-A-Vit -) 1 tab PO DAILY [facility] Last Admin: 01/03/20 10:01 Dose: 1 tab Documented by: Nystatin (Mycostatin Cream -) 1 applic TP DAILY [facility] Last Admin: 01/02/20 10:34 Dose: 1 applic Documented by: Pantoprazole Sodium (Protonix Iv) 40 mg IVPUSH DAILY [facility] Last Admin: 01/03/20 10:01 Dose: 40 mg Documented by: Potassium Chloride (Potassium Chloride Oral Liquid) 40 meq PO DAILY [facility] Last Admin: 01/03/20 10:01 Dose: 40 meq Documented by: Valproate Sodium (Depacon Injection -) 1,500 mg IVPB TID [facility] Last Admin: 01/03/20 05:27 Dose: 1,500 mg Documented by: - Objective Vital Signs: Vital Signs Temperature 99.4 F 01/03/20 05:51 Pulse Rate 109 H 01/03/20 05:51 Respiratory Rate 20 01/03/20 05:51 Blood Pressure 126/72 01/03/20 05:51 O2 Sat by Pulse Oximetry (%) 96 06/18/20 21:00 Constitutional: Yes: Well Nourished, No Distress, Calm Cardiovascular: Yes: Regular Rate and Rhythm Respiratory: Yes: Regular, Diminished Gastrointestinal: Yes: Normal Bowel Sounds, Soft, Abdomen, Obese Genitourinary: Yes: [place] Present Musculoskeletal: Yes: Muscle Weakness Extremities: Yes: WNL Edema: No Peripheral Pulses WNL: Yes Neurological: Yes: Alert, Confusion, Pre-Existing Deficit Psychiatric: Yes: Alert Labs: CBC, BMP 01/03/20 06:10 01/03/20 06:10 INR, PTT INR 1.41 (0.83-1.09) H 12/26/19 01:16 Problem List - Problems (1) Hypokalemia Assessment/Plan: -Resolved Problems reviewed: Yes Code(s): E87.6 - HYPOKALEMIA (2) Respiratory failure Assessment/Plan: -Pulmonary on board -On Nasal O2 to keep SpO2>90% Problems reviewed: Yes Code(s): J96.90 - RESPIRATORY FAILURE, UNSP, UNSP W HYPOXIA OR HYPERCAPNIA (3) Status epilepticus Assessment/Plan: -Neurology on board -MRI brain unremarkable -CSF negative for any acute etiology -Continue Depakote -CT head showed right frontal lobe encephalomalacia Problems reviewed: Yes Code(s): G40.901 - EPILEPSY, UNSP, NOT INTRACTABLE, WITH STATUS EPILEPTICUS (4) Pneumonia Assessment/Plan: -Likely aspiration -Still too weak to do MBS -Speech pathology on board -Trial of MBS on Monday -ID on board -IV Zosyn -Afebrile -No leukocytosi -Continue NGT feeds Problems reviewed: Yes Code(s): J18.9 - PNEUMONIA, UNSPECIFIED ORGANISM (5) UTI (urinary tract infection) Assessment/Plan: -resolved -treated with IV abx Problems reviewed: Yes Code(s): N39.0 - URINARY TRACT INFECTION, SITE NOT SPECIFIED (6) Metabolic encephalopathy Problems reviewed: Yes Code(s): G93.41 - METABOLIC ENCEPHALOPATHY (7) Anemia Assessment/Plan: -Check Iron, B12 and stool OB -Thyroid profile normal -monitor trend Problems reviewed: Yes Code(s): D64.9 - ANEMIA, UNSPECIFIED (8) Diabetes Assessment/Plan: -Check A1C -BGM AC HS -ISS Problems reviewed: Yes Code(s): E11.9 - TYPE 2 DIABETES MELLITUS WITHOUT COMPLICATIONS Assessment/Plan See problem list
--- NOTE | 2020-01-03 11:33 | PN ---
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 (short form) - Note 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: PULMONARY NO CHANGE,AWAKE,EYES OPEN,NOT RESPONSIVE VSS/AFEBRILE Constitutional: Yes: Well Nourished, Calm Eyes: Yes: WNL HENT: Yes: WNL Neck: Yes: WNL Cardiovascular: Yes: Regular Rate and Rhythm, S1, S2 Respiratory: Yes: CTA Bilaterally Gastrointestinal: Yes: Normal Bowel Sounds, Soft Extremities: Yes: WNL Edema: No Labs/images/notes/meds/micro reviewed ASSESS: s/p Status Epilepticus s/p Acute Respiratory Failure UTI Bacteremia Sepsis +Troponins likely Demand Ischemia Recent COVID19 Bipolar Disorder Mental Retardation DM h/o TBI h/o DVT Anemia PLAN: - AEDs per neuro - ABX per ID - Monitor UOP and BMP - Replete electrolytes - Cont anticoagulation - enteral feeds - DVT/GI prophylaxis Hollis HERNANDEZ MD
[2020-01-03] MEDS: NYSTATIN 100,000 UNIT/GM TOPICAL CREAM 15 GM TUBE TP SCH (11:38)
[2020-01-03 11:39] LABS: ANISOCYTOSIS 1+; MACROCYTOSIS 0; OVALOCYTE 1+; PLATELET ESTIMATE DECREASED; TARGET CELLS 1+; TEAR DROP CELLS 1+
--- NOTE | 2020-01-03 11:53 | PN ---
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 (short form) - Note 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: 34 Year old [place], history of TBI, , on eliquis for DVT, DM, Bipolar disorder. patient has only one seizure in past and was not on any AED inpast. Sundarn has been on antipsychotic medicaiton and on depakote for behavior difficulty. She initialy presented with status epilepticus Patient was treated with versed and itubated. On admisisonPatient was treated for meningitis empirically, later abx were stopped after spinal tap Patient is able to follow simple command NEUROLOGICAL EXAMINATION opens eyes, follow simple command able to move all four extremity in limited fashion and blink her eye to command withdraws to pain pupils reactive no seizure activity was seen limited neuro exam brain stem reflex, corneal, pupils reflex are present ct head showed right frontal lobe encephalomalacia spinal tap done wbc is 1 , and protein 90 ( less likely to be mningitis based upon ressults) mri of brain on december 31 no acute findings Assessment/Plan 34 year old female [place] resident, history of TBIMD , on eliquis for DVT, DM, Bipolar disorder. She is on multiple psych medicaiton including antidepressant and antipsychotic medicaiton , and depakote. Patient has only one seizure in past. Ct head showed encephalomalacia, mri of brain unremarkable Admitted for statuts epilepticus rule out meningitis baseline MR and encephalomalacia, bipolar disorder PLAN - Coneitnue keppra and depakote - mri of brain showed no acute findings - abx for aspiriation pneumonia by ID , Pulmonary is also following Thanking you so much Gonsalo Shay MD
[2020-01-03] MEDS ORDERED: PT OWN MED DRAWER 7, Y5N ONE ×2 (13:44→23:41)
--- NOTE | 2020-01-03 13:44 | PN ---
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, Physician History of Present Illness: AWAKE IN BED NO ACUTE DISTRESS URINE C/S PROTEUS WBC WNL PLT COUNT IMPROVED CXR OPACIFIED L HEMITHORAX - Current Medication List Current Medications: Active Medications Ascorbic Acid (Vitamin C -) 500 mg PO BID [facility] Last Admin: 01/03/20 10:01 Dose: 500 mg Documented by: Heparin Sodium (Porcine) (Heparin -) 5,000 unit SQ BID [facility] Last Admin: 01/03/20 09:58 Dose: 5,000 unit Documented by: Piperacillin Sod/Tazobactam (Sod 4.5 gm/ Dextrose) 100 mls @ 200 mls/hr IVPB Q8H-IV [facility]; Protocol Last Admin: 01/03/20 09:59 Dose: 200 mls/hr Documented by: Insulin Aspart (Novolog Vial Sliding Scale -) 1 vial SQ ACHS [facility]; Protocol Last Admin: 01/03/20 12:01 Dose: Not Given Documented by: Levetiracetam (Keppra Injection -) 1,500 mg IVPB BID [facility] Last Admin: 01/03/20 10:37 Dose: 1,500 mg Documented by: Multivitamins/Minerals/Vitamin C (Tab-A-Vit -) 1 tab PO DAILY [facility] Last Admin: 01/03/20 10:01 Dose: 1 tab Documented by: Nystatin (Mycostatin Cream -) 1 applic TP DAILY [facility] Last Admin: 01/03/20 11:38 Dose: 1 applic Documented by: Pantoprazole Sodium (Protonix Iv) 40 mg IVPUSH DAILY [facility] Last Admin: 01/03/20 10:01 Dose: 40 mg Documented by: Potassium Chloride (Potassium Chloride Oral Liquid) 40 meq PO DAILY [facility] Last Admin: 01/03/20 10:01 Dose: 40 meq Documented by: Valproate Sodium (Depacon Injection -) 1,500 mg IVPB TID [facility] Last Admin: 01/03/20 05:27 Dose: 1,500 mg Documented by: - Objective Vital Signs: Vital Signs Temperature 99.4 F 01/03/20 05:51 Pulse Rate 109 H 01/03/20 05:51 Respiratory Rate 01/03/20 05:51 Blood Pressure 126/72 01/03/20 05:51 O2 Sat by Pulse Oximetry (%) 96 01/02/20 21:00 Constitutional: Yes: No Distress, Obese Cardiovascular: Yes: Regular Rate and Rhythm, S1, S2 Respiratory: Yes: CTA Bilaterally Gastrointestinal: Yes: Normal Bowel Sounds, Soft. No: Tenderness Edema: No Labs: CBC, BMP 01/03/20 06:10 01/03/20 06:10 INR, PTT INR 1.41 (0.83-1.09) H 12/26/19 01:16 Assessment/Plan S/P SEIZURES RESP FAILURE PROBABLE ASP PNEUMONIA OPACIFIED L HEMITHORAX NO EVIDENCE OF MENINGITIS + BC SCN = CONTAMINANT UTI THROMBOCYTOPENIA ON ZOSYN DAY #6 FOR POSSIBLE ASPIRATION
[2020-01-04] MEDS: INSULIN SLIDING SCALE (NOVOLOG) 1 VIAL SQ SCH (00:11)
[2020-01-04] MEDS ORDERED: PIPERACILLIN/TAZOBACTAM 4.5 GM VIAL IVPB ONE ×3 (02:34→17:36)
[2020-01-04] MEDS ORDERED: DEXTROSE 5%-WATER 100 ML IVPB ONE ×3 (02:34→17:36)
[2020-01-04] MEDS: PIPERACILLIN/TAZOB 4.5 GM 4.5 GM in DEXTROSE 5%-WATER 100 ML IVPB SCH ×3 (02:47→18:00)
[2020-01-04] MEDS ORDERED: PT OWN MED DRAWER 7, Y5N ONE ×2 (06:09→14:52)
[2020-01-04] MEDS: VALPROATE SODIUM 500 MG/5 ML VIAL IVPB SCH ×4 (06:15→22:32)
[2020-01-04 08:07] LABS: BASO % 0.4 % (0-2.0); EOS % 2.1 % (0-4.5); HEMATOCRIT 28.3 % (32.4-45.2); HEMOGLOBIN 9.3 GM/dL (10.7-15.3); LYMPH % 25.2 % (8-40); MCH 31.5 pg (25.7-33.7); MCHC 32.9 g/dl (32.0-36.0); MEAN CELL VOLUME 95.8 fl (80-96); MEAN PLT VOLUME 9.3 fl (7.5-11.1); MONO % 11.1 % (3.8-10.2); NEUT % 61.2 % (42.8-82.8); PLATELET COUNT 162 K/MM3 (134-434); RBC 2.96 M/mm3 (3.60-5.2); RDW 15.4 % (11.6-15.6); WHITE BLOOD COUNT 9.1 K/mm3 (4.0-10.0)
[2020-01-04 08:44] LABS: ALBUMIN 2.6 g/dl (3.4-5.0); BILIRUBIN,TOTAL 0.2 mg/dL (0.2-1); CALCIUM 9.3 mg/dL (8.5-10.1); CREATININE 0.5 mg/dL (0.55-1.3); POTASSIUM 3.5 mmol/L (3.5-5.1); TOT PROT 6.3 g/dl (6.4-8.2)
--- NOTE | 2020-01-04 10:21 | PN ---
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, Physician - Current Medication List Current Medications: Active Medications Ascorbic Acid (Vitamin C -) 500 mg PO BID [facility] Last Admin: 01/03/20 23:16 Dose: 500 mg Documented by: Heparin Sodium (Porcine) (Heparin -) 5,000 unit SQ BID [facility] Last Admin: 01/03/20 23:23 Dose: 5,000 unit Documented by: Piperacillin Sod/Tazobactam (Sod 4.5 gm/ Dextrose) 100 mls @ 200 mls/hr IVPB Q8H-IV [facility]; Protocol Last Admin: 01/04/20 02:47 Dose: 200 mls/hr Documented by: Lactobacillus Acidophilus (Bacid -) 1 tab NGT DAILY [facility] Levetiracetam (Keppra Injection -) 1,500 mg IVPB BID [facility] Last Admin: 01/03/20 23:17 Dose: 1,500 mg Documented by: Multivitamins/Minerals/Vitamin C (Tab-A-Vit -) 1 tab PO DAILY [facility] Last Admin: 01/03/20 10:01 Dose: 1 tab Documented by: Nystatin (Mycostatin Cream -) 1 applic TP DAILY [facility] Last Admin: 01/03/20 11:38 Dose: 1 applic Documented by: Pantoprazole Sodium (Protonix Iv) 40 mg IVPUSH DAILY [facility] Last Admin: 01/03/20 10:01 Dose: 40 mg Documented by: Potassium Chloride (Potassium Chloride Oral Liquid) 40 meq PO DAILY [facility] Last Admin: 01/03/20 10:01 Dose: 40 meq Documented by: Valproate Sodium (Depacon Injection -) 1,500 mg IVPB TID [facility] Last Admin: 01/04/20 06:15 Dose: 1,500 mg Documented by: - Objective Vital Signs: Vital Signs Temperature 99.4 F 01/03/20 22:00 Pulse Rate 112 H 01/03/20 22:00 Respiratory Rate 18 01/04/20 09:00 Blood Pressure 139/80 01/03/20 22:00 O2 Sat by Pulse Oximetry (%) 98 01/04/20 09:00 Cardiovascular: Yes: S1, S2 Respiratory: Yes: Regular, CTA Bilaterally Gastrointestinal: Yes: Normal Bowel Sounds, Soft Neurological: Yes: Lethargy, Weakness Labs: CBC, BMP 01/04/20 06:30 01/04/20 06:30 INR, PTT INR 1.41 (0.83-1.09) H 12/26/19 01:16 Problem List - Problems (1) Status epilepticus Code(s): G40.901 - EPILEPSY, UNSP, NOT INTRACTABLE, WITH STATUS EPILEPTICUS (2) Prolonged QT interval Code(s): R94.31 - ABNORMAL ELECTROCARDIOGRAM [ECG] [EKG] (3) Respiratory failure Code(s): J96.90 - RESPIRATORY FAILURE, UNSP, UNSP W HYPOXIA OR HYPERCAPNIA Assessment/Plan - Problems (1) Hypokalemia Assessment/Plan: -Resolved Problems reviewed: Yes Code(s): E87.6 - HYPOKALEMIA (2) Respiratory failure Assessment/Plan: -Pulmonary on board -On Nasal O2 to keep SpO2>90% Problems reviewed: Yes Code(s): J96.90 - RESPIRATORY FAILURE, UNSP, UNSP W HYPOXIA OR HYPERCAPNIA (3) Status epilepticus Assessment/Plan: -Neurology on board -MRI brain unremarkable -CSF negative for any acute etiology -Continue Depakote -CT head showed right frontal lobe encephalomalacia Problems reviewed: Yes Code(s): G40.901 - EPILEPSY, UNSP, NOT INTRACTABLE, WITH STATUS EPILEPTICUS (4) Pneumonia Assessment/Plan: -Likely aspiration -Still too weak to do MBS -Speech pathology on board -Trial of MBS on Monday -ID on board -IV Zosyn -Afebrile -No leukocytosi -Continue NGT feeds Problems reviewed: Yes Code(s): J18.9 - PNEUMONIA, UNSPECIFIED ORGANISM (5) UTI (urinary tract infection) Assessment/Plan: -resolved -treated with IV abx Problems reviewed: Yes Code(s): N39.0 - URINARY TRACT INFECTION, SITE NOT SPECIFIED (6) Metabolic encephalopathy Problems reviewed: Yes Code(s): G93.41 - METABOLIC ENCEPHALOPATHY (7) Anemia Assessment/Plan: -Check Iron, B12 and stool OB -Thyroid profile normal -monitor trend Problems reviewed: Yes Code(s): D64.9 - ANEMIA, UNSPECIFIED (8) Diabetes Assessment/Plan: -Check A1C -BGM AC HS -ISS Problems reviewed: Yes Code(s): E11.9 - TYPE 2 DIABETES MELLITUS WITHOUT COMPLICATIONS
[2020-01-04] MEDS: ASCORBIC ACID 500 MG TABLET (FP) PO SCH ×2 (10:43→22:32)
[2020-01-04] MEDS: MULTIVITAMINS (DAILY MVI) TABLET (FP) PO SCH (10:44)
[2020-01-04] MEDS: POTASSIUM CHLORIDE ORAL LIQUID 20 MEQ/15 ML PO SCH (10:45)
[2020-01-04] MEDS: LACTOBACILLUS ACIDOPHILUS 1 TABLET NGT SCH (10:45)
[2020-01-04] MEDS: PANTOPRAZOLE SODIUM 40 MG VIAL IVPUSH SCH (10:45)
[2020-01-04] MEDS: NYSTATIN 100,000 UNIT/GM TOPICAL CREAM 15 GM TUBE TP SCH (10:46)
[2020-01-04] MEDS: HEPARIN NA (PORCINE) 5,000 UNITS/ML 1ML VIAL SQ SCH ×2 (10:46→22:31)
[2020-01-04] MEDS: levETIRAcetam 500 MG/5 ML INJECTION VIAL IVPB SCH ×2 (10:46→22:31)
[2020-01-04 11:59] LABS: ANISOCYTOSIS 1+; MACROCYTOSIS 1+; PLATELET ESTIMATE NORMAL
--- NOTE | 2020-01-04 14:01 | PN ---
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 (short form) - Note 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: Resting in NAD. Eyes open. No acute events overnight. Intake & Output 01/01/20 01/02/20 01/03/20 01/04/20 23:59 23:59 23:59 23:59 Intake Total 990 1170 1170 1140 Output Total 1600 2450 1250 Balance -610 -1280 -80 1140 Last Vital Signs Temp Pulse Resp BP Pulse Ox 99.4 F 112 H 18 139/80 98 01/03/20 22:00 01/03/20 22:00 01/04/20 09:00 01/03/20 22:00 01/04/20 09:00 Active Medications Ascorbic Acid (Vitamin C -) 500 mg PO BID [facility] Last Admin: 01/04/20 10:43 Dose: 500 mg Documented by: Heparin Sodium (Porcine) (Heparin -) 5,000 unit SQ BID [facility] Last Admin: 01/04/20 10:46 Dose: 5,000 unit Documented by: Piperacillin Sod/Tazobactam (Sod 4.5 gm/ Dextrose) 100 mls @ 200 mls/hr IVPB Q8H-IV [facility]; Protocol Last Admin: 01/04/20 10:41 Dose: 200 mls/hr Documented by: Lactobacillus Acidophilus (Bacid -) 1 tab NGT DAILY [facility] Last Admin: 01/04/20 10:45 Dose: 1 tab Documented by: Levetiracetam (Keppra Injection -) 1,500 mg IVPB BID [facility] Last Admin: 01/04/20 10:46 Dose: 1,500 mg Documented by: Multivitamins/Minerals/Vitamin C (Tab-A-Vit -) 1 tab PO DAILY [facility] Last Admin: 01/04/20 10:44 Dose: 1 tab Documented by: Nystatin (Mycostatin Cream -) 1 applic TP DAILY [facility] Last Admin: 01/04/20 10:46 Dose: 1 applic Documented by: Pantoprazole Sodium (Protonix Iv) 40 mg IVPUSH DAILY [facility] Last Admin: 01/04/20 10:45 Dose: 40 mg Documented by: Potassium Chloride (Potassium Chloride Oral Liquid) 40 meq PO DAILY [facility] Last Admin: 01/04/20 10:45 Dose: 40 meq Documented by: Valproate Sodium (Depacon Injection -) 1,500 mg IVPB TID [facility] Last Admin: 01/04/20 06:15 Dose: 1,500 mg Documented by: Constitutional: Yes: NAD Eyes: Yes: WNL HENT: Yes: WNL Neck: Yes: WNL Cardiovascular: Yes: Regular Rate and Rhythm, S1, S2 Respiratory: Yes: diminished at the bases Gastrointestinal: Yes: Normal Bowel Sounds, Soft Extremities: Yes: WNL Edema: No Labs: Laboratory Results - last 24 hr 01/03/20 01/03/20 01/03/20 06:10 06:10 17:06 WBC RBC Hgb Hct MCV MCH MCHC RDW Plt Count MPV Absolute Neuts (auto) Neutrophils % Neutrophils % (Manual) Band Neutrophils % Lymphocytes % Lymphocytes % (Manual) Monocytes % Monocytes % (Manual) Eosinophils % Eosinophils % (Manual) Basophils % Basophils % (Manual) Myelocytes % (Man) Promyelocytes % (Man) Blast Cells % (Manual) Nucleated RBC % Metamyelocytes Hypochromia Platelet Estimate Polychromasia Poikilocytosis Anisocytosis Macrocytosis Sodium Potassium Chloride Carbon Dioxide Anion Gap BUN Creatinine Est GFR (CKD-EPI)AfAm Est GFR (CKD-EPI)NonAf POC Glucometer 121 Random Glucose Hemoglobin A1c % 5.1 Calcium Iron 132 TIBC 254 Iron Saturation 51 H Unsaturated IBC 122 L Ferritin 135.0 Total Bilirubin AST ALT Alkaline Phosphatase Total Protein Albumin Vitamin B12 658 01/04/20 01/04/20 01/04/20 00:09 06:30 06:30 WBC 9.1 RBC 2.96 L Hgb 9.3 L Hct 28.3 L MCV 95.8 MCH 31.5 MCHC 32.9 RDW 15.4 Plt Count 162 D MPV 9.3 Absolute Neuts (auto) 5.6 Neutrophils % 61.2 D Neutrophils % (Manual) 49.5 Band Neutrophils % 0.0 Lymphocytes % 25.2 D Lymphocytes % (Manual) 37.9 D Monocytes % 11.1 H Monocytes % (Manual) 11 H D Eosinophils % 2.1 Eosinophils % (Manual) 2.1 D Basophils % 0.4 Basophils % (Manual) 0.0 Myelocytes % (Man) 0 Promyelocytes % (Man) 0 Blast Cells % (Manual) 0 Nucleated RBC % 0 Metamyelocytes 0 Hypochromia 1+ Platelet Estimate Normal Polychromasia 1+ Poikilocytosis 0 Anisocytosis 1+ Macrocytosis 1+ Sodium 142 Potassium 3.5 Chloride 103 Carbon Dioxide 32 Anion Gap 6 L BUN 17.0 Creatinine 0.5 L Est GFR (CKD-EPI)AfAm 148.42 Est GFR (CKD-EPI)NonAf 128.06 POC Glucometer 113 Random Glucose 122 H Hemoglobin A1c % Calcium 9.3 Iron TIBC Iron Saturation Unsaturated IBC Ferritin Total Bilirubin 0.2 AST 17 ALT 12 L Alkaline Phosphatase 56 Total Protein 6.3 L Albumin 2.6 L Vitamin B12 Problem List - Problems (1) Hypokalemia Code(s): E87.6 - HYPOKALEMIA (2) Respiratory failure Code(s): J96.90 - RESPIRATORY FAILURE, UNSP, UNSP W HYPOXIA OR HYPERCAPNIA (3) Status epilepticus Code(s): G40.901 - EPILEPSY, UNSP, NOT INTRACTABLE, WITH STATUS EPILEPTICUS Assessment/Plan ASSESS: s/p Status Epilepticus s/p Acute Respiratory Failure UTI Bacteremia Sepsis +Troponins likely Demand Ischemia Recent COVID19 Bipolar Disorder Mental Retardation DM h/o TBI h/o DVT Anemia PLAN: - AEDs per neuro - ABX per ID - Monitor UOP and BMP - Replete electrolytes - VTE prophylaxis - enteral feeds - GI prophylaxis Dr Poe
--- NOTE | 2020-01-04 20:34 | PN ---
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 (short form) - Note 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: 34 Year old female [place] resident, history of TBI, , on eliquis for DVT, DM, Bipolar disorder. patient has only one seizure in past and was not on any AED inpast. Patiren has been on antipsychotic medicaiton and on depakote for behavior difficulty. She initialy presented with status epilepticus Patient was treated with versed and itubated. On admisisonPatient was treated for meningitis empirically, later abx were stopped after spinal tap Patient is able to follow simple command , no seizure over night , no new focal neuro symptoms NEUROLOGICAL EXAMINATION opens eyes, follow simple command able to move all four extremity in limited fashion and blink her eye to command withdraws to pain pupils reactive no seizure activity was seen limited neuro exam brain stem reflex, corneal, pupils reflex are present ct head showed right frontal lobe encephalomalacia spinal tap done wbc is 1 , and protein 90 ( less likely to be mningitis based upon ressults) mri of brain on december 31 no acute findings Assessment/Plan 34 year old female [place], history of TBIMD , on eliquis for DVT, DM, Bipolar disorder. She is on multiple psych medicaiton including antidepressant and antipsychotic medicaiton , and depakote. Patient has only one seizure in past. Ct head showed encephalomalacia, mri of brain unremarkable Admitted for statuts epilepticus rule out meningitis baseline MR and encephalomalacia, bipolar disorder PLAN - Coneitnue keppra and depakote - mri of brain showed no acute findings - abx for aspiriation pneumonia by ID , Pulmonary is also following Thanking you so much Gonsalo Shay MD
[2020-01-05] MEDS ORDERED: PIPERACILLIN/TAZOBACTAM 4.5 GM VIAL IVPB ONE ×3 (01:00→17:19)
[2020-01-05] MEDS ORDERED: DEXTROSE 5%-WATER 100 ML IVPB ONE ×3 (01:01→17:19)
[2020-01-05] MEDS: PIPERACILLIN/TAZOB 4.5 GM 4.5 GM in DEXTROSE 5%-WATER 100 ML IVPB SCH ×3 (01:49→17:40)
[2020-01-05] MEDS ORDERED: PT OWN MED DRAWER 7, Y5N ONE ×2 (05:32→07:05)
[2020-01-05] MEDS: VALPROATE SODIUM 500 MG/5 ML VIAL IVPB SCH ×3 (05:36→23:01)
[2020-01-05] MEDS ORDERED: INSULIN (NOVOLOG) ASPART 100 UNITS/ML 10ML VIAL ONE (06:01)
[2020-01-05] MEDS ORDERED: INSULIN (LEVEMIR) 100 UNITS/ML UNITS SQ ONE (06:01)
[2020-01-05 07:02] LABS: BASO % 0.3 % (0-2.0); EOS % 1.8 % (0-4.5); HEMATOCRIT 27.7 % (32.4-45.2); HEMOGLOBIN 9.1 GM/dL (10.7-15.3); LYMPH % 28.4 % (8-40); MCHC 32.7 g/dl (32.0-36.0); MEAN CELL VOLUME 94.7 fl (80-96); MEAN PLT VOLUME 8.9 fl (7.5-11.1); MONO % 12.2 % (3.8-10.2); NEUT % 57.3 % (42.8-82.8); PLATELET COUNT 210 K/MM3 (134-434); RBC 2.92 M/mm3 (3.60-5.2); RDW 15.5 % (11.6-15.6)
[2020-01-05 07:23] LABS: ALBUMIN 2.6 g/dl (3.4-5.0); BILIRUBIN,TOTAL 0.3 mg/dL (0.2-1); BLOOD UREA NITROGEN 15.4 mg/dL (7-18); CALCIUM 9.6 mg/dL (8.5-10.1); CREATININE 0.5 mg/dL (0.55-1.3); POTASSIUM 3.7 mmol/L (3.5-5.1); TOT PROT 6.5 g/dl (6.4-8.2)
[2020-01-05 09:26] LABS: ANISOCYTOSIS 1+; MACROCYTOSIS 0; PLATELET ESTIMATE NORMAL
[2020-01-05] MEDS: levETIRAcetam 500 MG/5 ML INJECTION VIAL IVPB SCH ×2 (10:47→21:56)
[2020-01-05] MEDS: MULTIVITAMINS (DAILY MVI) TABLET (FP) PO SCH (10:47)
[2020-01-05] MEDS: LACTOBACILLUS ACIDOPHILUS 1 TABLET NGT SCH (10:47)
[2020-01-05] MEDS: HEPARIN NA (PORCINE) 5,000 UNITS/ML 1ML VIAL SQ SCH ×2 (10:47→21:56)
[2020-01-05] MEDS: POTASSIUM CHLORIDE ORAL LIQUID 20 MEQ/15 ML PO SCH (10:47)
[2020-01-05] MEDS: ASCORBIC ACID 500 MG TABLET (FP) PO SCH ×2 (10:47→21:57)
[2020-01-05] MEDS: PANTOPRAZOLE SODIUM 40 MG VIAL IVPUSH SCH (10:47)
[2020-01-05] MEDS: NYSTATIN 100,000 UNIT/GM TOPICAL CREAM 15 GM TUBE TP SCH (10:48)
--- NOTE | 2020-01-05 10:59 | PN ---
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, Physician - Current Medication List Current Medications: Active Medications Ascorbic Acid (Vitamin C -) 500 mg PO BID [facility] Last Admin: 01/05/20 10:47 Dose: 500 mg Documented by: Heparin Sodium (Porcine) (Heparin -) 5,000 unit SQ BID [facility] Last Admin: 01/05/20 10:47 Dose: 5,000 unit Documented by: Piperacillin Sod/Tazobactam (Sod 4.5 gm/ Dextrose) 100 mls @ 200 mls/hr IVPB Q8H-IV [facility]; Protocol Last Admin: 01/05/20 10:46 Dose: 200 mls/hr Documented by: Lactobacillus Acidophilus (Bacid -) 1 tab NGT DAILY [facility] Last Admin: 01/05/20 10:47 Dose: 1 tab Documented by: Levetiracetam (Keppra Injection -) 1,500 mg IVPB BID [facility] Last Admin: 01/05/20 10:47 Dose: 1,500 mg Documented by: Multivitamins/Minerals/Vitamin C (Tab-A-Vit -) 1 tab PO DAILY [facility] Last Admin: 01/05/20 10:47 Dose: 1 tab Documented by: Nystatin (Mycostatin Cream -) 1 applic TP DAILY [facility] Last Admin: 01/05/20 10:48 Dose: 1 applic Documented by: Pantoprazole Sodium (Protonix Iv) 40 mg IVPUSH DAILY [facility] Last Admin: 01/05/20 10:47 Dose: 40 mg Documented by: Potassium Chloride (Potassium Chloride Oral Liquid) 40 meq PO DAILY [facility] Last Admin: 01/05/20 10:47 Dose: 40 meq Documented by: Valproate Sodium (Depacon Injection -) 1,500 mg IVPB TID [facility] Last Admin: 01/05/20 05:36 Dose: 1,500 mg Documented by: - Objective Vital Signs: Vital Signs Temperature 98.9 F 01/05/20 06:00 Pulse Rate 111 H 01/05/20 06:00 Respiratory Rate 20 01/05/20 06:00 Blood Pressure 134/78 01/05/20 06:00 O2 Sat by Pulse Oximetry (%) 98 01/04/20 21:00 Cardiovascular: Yes: S1, S2 Respiratory: Yes: Regular, CTA Bilaterally Gastrointestinal: Yes: Normal Bowel Sounds, Soft Labs: CBC, BMP 01/05/20 05:55 01/05/20 05:55 INR, PTT INR 1.41 (0.83-1.09) H 12/26/19 01:16 Problem List - Problems (1) Status epilepticus Code(s): G40.901 - EPILEPSY, UNSP, NOT INTRACTABLE, WITH STATUS EPILEPTICUS (2) Prolonged QT interval Code(s): R94.31 - ABNORMAL ELECTROCARDIOGRAM [ECG] [EKG] (3) Respiratory failure Code(s): J96.90 - RESPIRATORY FAILURE, UNSP, UNSP W HYPOXIA OR HYPERCAPNIA Assessment/Plan - Problems (1) Hypokalemia Assessment/Plan: -Resolved Problems reviewed: Yes Code(s): E87.6 - HYPOKALEMIA (2) Respiratory failure Assessment/Plan: -Pulmonary on board -On Nasal O2 to keep SpO2>90% Problems reviewed: Yes Code(s): J96.90 - RESPIRATORY FAILURE, UNSP, UNSP W HYPOXIA OR HYPERCAPNIA (3) Status epilepticus Assessment/Plan: -Neurology on board -MRI brain unremarkable -CSF negative for any acute etiology -Continue Depakote -CT head showed right frontal lobe encephalomalacia Problems reviewed: Yes Code(s): G40.901 - EPILEPSY, UNSP, NOT INTRACTABLE, WITH STATUS EPILEPTICUS (4) Pneumonia Assessment/Plan: -Likely aspiration -Still too weak to do MBS -Speech pathology on board -Trial of MBS on Monday -ID on board -IV Zosyn -Afebrile -No leukocytosi -Continue NGT feeds Problems reviewed: Yes Code(s): J18.9 - PNEUMONIA, UNSPECIFIED ORGANISM (5) UTI (urinary tract infection) Assessment/Plan: -resolved -treated with IV abx Problems reviewed: Yes Code(s): N39.0 - URINARY TRACT INFECTION, SITE NOT SPECIFIED (6) Metabolic encephalopathy Problems reviewed: Yes Code(s): G93.41 - METABOLIC ENCEPHALOPATHY (7) Anemia Assessment/Plan: -Check Iron, B12 and stool OB -Thyroid profile normal -monitor trend Problems reviewed: Yes Code(s): D64.9 - ANEMIA, UNSPECIFIED (8) Diabetes Assessment/Plan: -Check A1C -BGM AC HS -ISS Problems reviewed: Yes Code(s): E11.9 - TYPE 2 DIABETES MELLITUS WITHOUT COMPLICATIONS
--- NOTE | 2020-01-05 13:01 | PN ---
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 (short form) - Note 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: Resting in NAD. Eyes open. No acute events overnight. Intake & Output 01/02/20 01/03/20 01/04/20 01/05/20 23:59 23:59 23:59 23:59 Intake Total 1170 1170 2595 210 Output Total 2450 1250 Balance -1280 -80 2595 210 Last Vital Signs Temp Pulse Resp BP Pulse Ox 98.9 F 111 H 20 134/78 98 01/05/20 06:00 01/05/20 06:00 01/05/20 09:00 01/05/20 06:00 01/05/20 09:00 Active Medications Ascorbic Acid (Vitamin C -) 500 mg PO BID [facility] Last Admin: 01/05/20 10:47 Dose: 500 mg Documented by: Heparin Sodium (Porcine) (Heparin -) 5,000 unit SQ BID [facility] Last Admin: 01/05/20 10:47 Dose: 5,000 unit Documented by: Piperacillin Sod/Tazobactam (Sod 4.5 gm/ Dextrose) 100 mls @ 200 mls/hr IVPB Q8H-IV [facility]; Protocol Last Admin: 01/05/20 10:46 Dose: 200 mls/hr Documented by: Lactobacillus Acidophilus (Bacid -) 1 tab NGT DAILY [facility] Last Admin: 01/05/20 10:47 Dose: 1 tab Documented by: Levetiracetam (Keppra Injection -) 1,500 mg IVPB BID [facility] Last Admin: 01/05/20 10:47 Dose: 1,500 mg Documented by: Multivitamins/Minerals/Vitamin C (Tab-A-Vit -) 1 tab PO DAILY [facility] Last Admin: 01/05/20 10:47 Dose: 1 tab Documented by: Nystatin (Mycostatin Cream -) 1 applic TP DAILY [facility] Last Admin: 01/05/20 10:48 Dose: 1 applic Documented by: Pantoprazole Sodium (Protonix Iv) 40 mg IVPUSH DAILY [facility] Last Admin: 01/05/20 10:47 Dose: 40 mg Documented by: Potassium Chloride (Potassium Chloride Oral Liquid) 40 meq PO DAILY [facility] Last Admin: 01/05/20 10:47 Dose: 40 meq Documented by: Valproate Sodium (Depacon Injection -) 1,500 mg IVPB TID [facility] Last Admin: 01/05/20 05:36 Dose: 1,500 mg Documented by: Constitutional: Yes: NAD Eyes: Yes: WNL HENT: Yes: WNL Neck: Yes: WNL Cardiovascular: Yes: Regular Rate and Rhythm, S1, S2 Respiratory: Yes: diminished at the bases Gastrointestinal: Yes: Normal Bowel Sounds, Soft Extremities: Yes: WNL Edema: No Labs: Laboratory Results - last 24 hr 01/04/20 01/05/20 01/05/20 21:15 05:55 05:55 WBC 10.0 RBC 2.92 L Hgb 9.1 L Hct 27.7 L MCV 94.7 MCH 31.0 MCHC 32.7 RDW 15.5 Plt Count 210 D MPV 8.9 Absolute Neuts (auto) 5.7 Neutrophils % 57.3 Neutrophils % (Manual) 46.5 Band Neutrophils % 1.0 Lymphocytes % 28.4 Lymphocytes % (Manual) 38.4 Monocytes % 12.2 H Monocytes % (Manual) 11 H Eosinophils % 1.8 Eosinophils % (Manual) 1.0 Basophils % 0.3 Basophils % (Manual) 1.0 D Myelocytes % (Man) 0 Promyelocytes % (Man) 0 Blast Cells % (Manual) 0 Nucleated RBC % 0 Metamyelocytes 0 Hypochromia 0 Platelet Estimate Normal Polychromasia 0 Poikilocytosis 1+ Basophilic Stippling 0 Anisocytosis 1+ Microcytosis 1+ Macrocytosis 0 Stomatocytes 1+ Sodium 142 Potassium 3.7 Chloride 104 Carbon Dioxide 34 H Anion Gap 5 L BUN 15.4 Creatinine 0.5 L Est GFR (CKD-EPI)AfAm 148.42 Est GFR (CKD-EPI)NonAf 128.06 POC Glucometer 122 Random Glucose 100 Calcium 9.6 Total Bilirubin 0.3 AST 17 ALT 10 L Alkaline Phosphatase 55 Total Protein 6.5 Albumin 2.6 L Problem List - Problems (1) Hypokalemia Code(s): E87.6 - HYPOKALEMIA (2) Respiratory failure Code(s): J96.90 - RESPIRATORY FAILURE, UNSP, UNSP W HYPOXIA OR HYPERCAPNIA (3) Status epilepticus Code(s): G40.901 - EPILEPSY, UNSP, NOT INTRACTABLE, WITH STATUS EPILEPTICUS Assessment/Plan ASSESS: s/p Status Epilepticus s/p Acute Respiratory Failure UTI Bacteremia Sepsis +Troponins likely Demand Ischemia Recent COVID19 Bipolar Disorder Mental Retardation DM h/o TBI h/o DVT Anemia PLAN: - AEDs per neuro - ABX per ID - Monitor UOP and BMP - Replete electrolytes - VTE prophylaxis - enteral feeds - GI prophylaxis Dr Poe
--- NOTE | 2020-01-05 21:38 | PN ---
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 (short form) - Note 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: 34 Year old [place] resident, history of TBI, , on eliquis for DVT, DM, Bipolar disorder. patient has only one seizure in past and was not on any AED inpast. Sam has been on antipsychotic medicaiton and on depakote for behavior difficulty. She initialy presented with status epilepticus Patient was treated with versed and itubated. On admisisonPatient was treated for meningitis empirically, later abx were stopped after spinal tap Patient is able to follow simple command , no seizure over night , no new focal neuro symptoms, no new complain NEUROLOGICAL EXAMINATION opens eyes, follow simple command able to move all four extremity in limited fashion and blink her eye to command withdraws to pain pupils reactive no seizure activity was seen limited neuro exam brain stem reflex, corneal, pupils reflex are present ct head showed right frontal lobe encephalomalacia spinal tap done wbc is 1 , and protein 90 ( less likely to be mningitis based upon ressults) mri of brain on december 31 no acute findings Assessment/Plan 34 year old female [place] resident, history of TBIMD , on eliquis for DVT, DM, Bipolar disorder. She is on multiple psych medicaiton including antidepressant and antipsychotic medicaiton , and depakote. Patient has only one seizure in past. Ct head showed encephalomalacia, mri of brain unremarkable Admitted for statuts epilepticus rule out meningitis baseline MR and encephalomalacia, bipolar disorder PLAN - Coneitnue keppra and depakote - continue supportive care Thanking you so much Gonsalo Shay MD
[2020-01-06] MEDS ORDERED: PIPERACILLIN/TAZOBACTAM 4.5 GM VIAL IVPB ONE ×2 (00:22→08:54)
[2020-01-06] MEDS ORDERED: DEXTROSE 5%-WATER 100 ML IVPB ONE ×2 (00:22→08:54)
[2020-01-06] MEDS: PIPERACILLIN/TAZOB 4.5 GM 4.5 GM in DEXTROSE 5%-WATER 100 ML IVPB SCH ×2 (01:22→09:21)
[2020-01-06] MEDS: VALPROATE SODIUM 500 MG/5 ML VIAL IVPB SCH (05:22)
[2020-01-06 06:46] LABS: BASO % 0.6 % (0-2.0); EOS % 1.7 % (0-4.5); HEMATOCRIT 26.2 % (32.4-45.2); HEMOGLOBIN 8.6 GM/dL (10.7-15.3); LYMPH % 40.2 % (8-40); MCH 30.8 pg (25.7-33.7); MCHC 32.8 g/dl (32.0-36.0); MEAN CELL VOLUME 93.9 fl (80-96); MEAN PLT VOLUME 8.8 fl (7.5-11.1); MONO % 11.1 % (3.8-10.2); NEUT % 46.4 % (42.8-82.8); PLATELET COUNT 269 K/MM3 (134-434); RBC 2.79 M/mm3 (3.60-5.2); RDW 16.1 % (11.6-15.6); WHITE BLOOD COUNT 8.8 K/mm3 (4.0-10.0)
[2020-01-06 07:22] LABS: ALBUMIN 2.5 g/dl (3.4-5.0); BLOOD UREA NITROGEN 18.6 mg/dL (7-18); CALCIUM 9.9 mg/dL (8.5-10.1); POTASSIUM 3.9 mmol/L (3.5-5.1)
[2020-01-06 07:26] LABS: BILIRUBIN,TOTAL 0.3 mg/dL (0.2-1); CREATININE 0.5 mg/dL (0.55-1.3); TOT PROT 6.5 g/dl (6.4-8.2)
[2020-01-06] MEDS: PANTOPRAZOLE SODIUM 40 MG VIAL IVPUSH SCH (09:21)
[2020-01-06] MEDS: LACTOBACILLUS ACIDOPHILUS 1 TABLET NGT SCH (09:23)
[2020-01-06] MEDS: ASCORBIC ACID 500 MG TABLET (FP) PO SCH (09:27)
[2020-01-06] MEDS: MULTIVITAMINS (DAILY MVI) TABLET (FP) PO SCH (09:27)
[2020-01-06] MEDS: HEPARIN NA (PORCINE) 5,000 UNITS/ML 1ML VIAL SQ SCH ×2 (09:27→23:26)
[2020-01-06] MEDS: NYSTATIN 100,000 UNIT/GM TOPICAL CREAM 15 GM TUBE TP SCH (09:29)
[2020-01-06] MEDS: POTASSIUM CHLORIDE ORAL LIQUID 20 MEQ/15 ML PO SCH (09:30)
[2020-01-06] MEDS: levETIRAcetam 500 MG/5 ML INJECTION VIAL IVPB SCH (10:43)
--- NOTE | 2020-01-06 10:53 | PN ---
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, Physician Chief Complaint: Status Epilepticus Acute Respiratory Failure UTI Bacteremia Sepsis +Troponins likely Demand Ischemia Recent COVID19 Bipolar Disorder Mental Retardation DM h/o TBI h/o DVT Anemia History of Present Illness: NAD More alert today, able to voice her name, lift he head somewhat. Denies any pain NGT still in place Day 9 of zosyn - Current Medication List Current Medications: Active Medications Ascorbic Acid (Vitamin C -) 500 mg PO BID [facility] Last Admin: 01/06/20 09:27 Dose: 500 mg Documented by: Heparin Sodium (Porcine) (Heparin -) 5,000 unit SQ BID [facility] Last Admin: 01/06/20 09:27 Dose: 5,000 unit Documented by: Piperacillin Sod/Tazobactam (Sod 4.5 gm/ Dextrose) 100 mls @ 200 mls/hr IVPB Q8H-IV [facility]; Protocol Last Admin: 01/06/20 09:21 Dose: 200 mls/hr Documented by: Lactobacillus Acidophilus (Bacid -) 1 tab NGT DAILY [facility] Last Admin: 01/06/20 09:23 Dose: 1 tab Documented by: Levetiracetam (Keppra Oral Solution -) 1,500 mg NGT BID [facility] Multivitamins/Minerals/Vitamin C (Tab-A-Vit -) 1 tab PO DAILY [facility] Last Admin: 01/06/20 09:27 Dose: 1 tab Documented by: Nystatin (Mycostatin Cream -) 1 applic TP DAILY [facility] Last Admin: 01/06/20 09:29 Dose: 1 applic Documented by: Pantoprazole Sodium (Protonix Iv) 40 mg IVPUSH DAILY [facility] Last Admin: 01/06/20 09:21 Dose: 40 mg Documented by: Potassium Chloride (Potassium Chloride Oral Liquid) 40 meq PO DAILY [facility] Last Admin: 01/06/20 09:30 Dose: 40 meq Documented by: Valproate Sodium (Depakene -) 1,500 mg NGT TID [facility] - Objective Vital Signs: Vital Signs Temperature 98.5 F 01/06/20 05:45 Pulse Rate 107 H 01/06/20 05:45 Respiratory Rate 18 01/06/20 05:45 Blood Pressure 136/88 01/06/20 05:45 O2 Sat by Pulse Oximetry (%) 96 01/05/20 21:00 Constitutional: Yes: Well Nourished, No Distress, Calm Cardiovascular: Yes: Regular Rate and Rhythm Respiratory: Yes: Regular, CTA Bilaterally Gastrointestinal: Yes: Normal Bowel Sounds, Soft, Abdomen, Obese Genitourinary: Yes: Incontinence Musculoskeletal: Yes: Muscle Weakness Extremities: Yes: WNL Edema: No Peripheral Pulses WNL: Yes Neurological: Yes: Alert, Pre-Existing Deficit Psychiatric: Yes: Alert Labs: CBC, BMP 01/06/20 05:20 01/06/20 05:20 INR, PTT INR 1.41 (0.83-1.09) H 12/26/19 01:16 Problem List - Problems (1) Hypokalemia Assessment/Plan: -Resolved Problems reviewed: Yes Code(s): E87.6 - HYPOKALEMIA (2) Respiratory failure Assessment/Plan: -resolved -Pulmonary on board -On Nasal O2 to keep SpO2>90% Problems reviewed: Yes Code(s): J96.90 - RESPIRATORY FAILURE, UNSP, UNSP W HYPOXIA OR HYPERCAPNIA (3) Status epilepticus Assessment/Plan: -Neurology on board -MRI brain unremarkable -CSF negative for any acute etiology -Continue Depakote- change to NGT -Continue Keppra- change to NGT -CT head showed right frontal lobe encephalomalacia Problems reviewed: Yes Code(s): G40.901 - EPILEPSY, UNSP, NOT INTRACTABLE, WITH STATUS EPILEPTICUS (4) Pneumonia Assessment/Plan: -Likely aspiration -Spoke to Speech pathology, would try bedside swallow before going for MBS -ID on board --D/C zosy, day 9 today -Afebrile -No leukocytosis -Continue NGT feeds Problems reviewed: Yes Code(s): J18.9 - PNEUMONIA, UNSPECIFIED ORGANISM (5) UTI (urinary tract infection) Assessment/Plan: -resolved -treated with IV abx Problems reviewed: Yes Code(s): N39.0 - URINARY TRACT INFECTION, SITE NOT SPECIFIED (6) Metabolic encephalopathy Assessment/Plan: -resolved Problems reviewed: Yes Code(s): G93.41 - METABOLIC ENCEPHALOPATHY (7) Anemia Assessment/Plan: -Iron, B12 unremarkable -stool OB negative -Thyroid profile normal -monitor trend Problems reviewed: Yes Code(s): D64.9 - ANEMIA, UNSPECIFIED (8) Diabetes Assessment/Plan: -A1c at 5.1 -D/C BGM AC HS -D/C ISS Problems reviewed: Yes Code(s): E11.9 - TYPE 2 DIABETES MELLITUS WITHOUT COMPLICATIONS Assessment/Plan See problem list
--- NOTE | 2020-01-06 11:07 | PN ---
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, RE RECORDING MIXER - Note 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: Selected Entries 01/06/20 01/06/20 05:45 09:15 Breakfast NPO Temperature 98.5 F Pulse Rate 107 H Blood Pressure 136/88 Laboratory Tests 01/06/20 05:20 WBC 8.8 Assessed at bedside. Was more alert reportedly this am. Sleepy,arousable briefly, headshake NO repeatedly for po trials mbs when appropriate ngt feedings
[2020-01-06] MEDS ORDERED: ASCORBIC ACID 500 MG/5 ML NGT SCH (11:19)
[2020-01-06 11:35] LABS: ANISOCYTOSIS 1+; MACROCYTOSIS 0; OVALOCYTE 1+; PLATELET ESTIMATE NORMAL; TARGET CELLS 1+
[2020-01-06] MEDS: VALPROATE SODIUM 250 MG/5 ML UNIT DOSE CUP NGT SCH ×2 (14:06→23:23)
--- NOTE | 2020-01-06 14:17 | PN ---
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 (short form) - Note 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: Resting in NAD on 3 L NC O2. No acute events overnight. Intake & Output 01/03/20 01/04/20 01/05/20 01/06/20 23:59 23:59 23:59 23:59 Intake Total 1170 2595 510 1070 Output Total 1250 Balance -80 2595 510 1070 Last Vital Signs Temp Pulse Resp BP Pulse Ox 98.7 F 104 H 20 120/72 97 01/06/20 13:47 01/06/20 13:47 01/06/20 13:47 01/06/20 13:47 01/06/20 09:00 Active Medications Ascorbic Acid (Vitamin C Oral Solution -) 500 mg NGT BID [facility] Famotidine (Pepcid) 20 mg NGT BID [facility] Heparin Sodium (Porcine) (Heparin -) 5,000 unit SQ BID [facility] Last Admin: 01/06/20 09:27 Dose: 5,000 unit Documented by: Lactobacillus Acidophilus (Bacid -) 1 tab NGT DAILY [facility] Last Admin: 01/06/20 09:23 Dose: 1 tab Documented by: Levetiracetam (Keppra Oral Solution -) 1,500 mg NGT BID [facility] Multivitamins/Minerals (Certavite-Antioxidant Liquid) 15 ml NGT DAILY [facility] Nystatin (Mycostatin Cream -) 1 applic TP DAILY [facility] Last Admin: 01/06/20 09:29 Dose: 1 applic Documented by: Potassium Chloride (Potassium Chloride Oral Liquid) 40 meq PO DAILY [facility] Last Admin: 01/06/20 09:30 Dose: 40 meq Documented by: Valproate Sodium (Depakene -) 1,500 mg NGT TID [facility] Last Admin: 01/06/20 14:06 Dose: 1,500 mg Documented by: Constitutional: Yes: NAD Eyes: Yes: WNL HENT: Yes: WNL Neck: Yes: WNL Cardiovascular: Yes: Regular Rate and Rhythm, S1, S2 Respiratory: Yes: diminished at the bases Gastrointestinal: Yes: Normal Bowel Sounds, Soft Extremities: Yes: WNL Edema: No Labs: Laboratory Results - last 24 hr 01/06/20 01/06/20 01/06/20 05:20 05:20 05:48 WBC 8.8 RBC 2.79 L Hgb 8.6 L Hct 26.2 L MCV 93.9 MCH 30.8 MCHC 32.8 RDW 16.1 H Plt Count 269 D MPV 8.8 Absolute Neuts (auto) 4.1 Neutrophils % 46.4 Neutrophils % (Manual) 31.7 L Band Neutrophils % 2.0 Lymphocytes % 40.2 H D Lymphocytes % (Manual) 55.4 H D Monocytes % 11.1 H Monocytes % (Manual) 6 Eosinophils % 1.7 Eosinophils % (Manual) 0.0 D Basophils % 0.6 Basophils % (Manual) 1.0 Myelocytes % (Man) 4 H D Promyelocytes % (Man) 0 Blast Cells % (Manual) 0 Nucleated RBC % 0 Metamyelocytes 0 Hypochromia 0 Platelet Estimate Normal Platelet Comment Present Polychromasia 1+ Poikilocytosis 1+ Basophilic Stippling 1+ Anisocytosis 1+ Microcytosis 1+ Macrocytosis 0 Spherocytes 1+ Target Cells 1+ Ovalocytes 1+ Stomatocytes 1+ Acanthocytes (Spur) 1+ Sodium 142 Potassium 3.9 Chloride 103 Carbon Dioxide 31 Anion Gap 8 BUN 18.6 H Creatinine 0.5 L Est GFR (CKD-EPI)AfAm 148.42 Est GFR (CKD-EPI)NonAf 128.06 POC Glucometer 124 Random Glucose 114 H Calcium 9.9 Total Bilirubin 0.3 AST 17 ALT 13 Alkaline Phosphatase 51 Total Protein 6.5 Albumin 2.5 L Problem List - Problems (1) Hypokalemia Code(s): E87.6 - HYPOKALEMIA (2) Respiratory failure Code(s): J96.90 - RESPIRATORY FAILURE, UNSP, UNSP W HYPOXIA OR HYPERCAPNIA (3) Status epilepticus Code(s): G40.901 - EPILEPSY, UNSP, NOT INTRACTABLE, WITH STATUS EPILEPTICUS Assessment/Plan ASSESS: s/p Status Epilepticus s/p Acute Respiratory Failure UTI Bacteremia Sepsis +Troponins likely Demand Ischemia Recent COVID19 Bipolar Disorder Mental Retardation DM h/o TBI h/o DVT Anemia PLAN: - AEDs per neuro - ABX per ID - Monitor UOP and BMP - Replete electrolytes - VTE prophylaxis - enteral feeds - GI prophylaxis Dr Poe
--- NOTE | 2020-01-06 14:53 | CON.HO ---
Consult Consult Specialty:: Hematology Reason for Consultation:: Anemia - History of Present Illness History of Present Illness: 34 year old female [place] resident, history of TBI, , on eliquis for DVT, DM, Bipolar disorder. patient has only one seizure in past and was not on any AED inpast. Sam has been on antipsychotic medicaiton and on depakote for behavior difficulty. We are consulted for anemia, and I think we had been consulted in the past. She cassidy Hb 8.6, MCV 93.9, normal WBC, 8.6, and pltlet count 269 Irons tudies on 01/03/20: iron 132, TIVC 254, Iron Sat 51, ferritin 135.Cr 0.5. SHe waqs not able to provide a history. 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 - Alcohol/Substance Use Hx Alcohol Use: No - Smoking History Smoking history: Never smoked Home Medications - Allergies Allergies/Adverse Reactions: Allergies Allergy/AdvReac Type Severity Reaction Status Date / Time haloperidol [From Haldol] Allergy Verified 12/26/19 01:53 NSAIDS (Non-Steroidal Allergy Verified 12/26/19 01:53 Anti-Inflamma - Home Medications Home Medications: Ambulatory Orders Acetaminophen [Pain Relief] 650 mg PO Q6H PRN 12/26/19 Apixaban [Eliquis] 2.5 mg PO BID 12/26/19 Benztropine Mesylate 1 mg PO BID 12/26/19 Buspirone HCl [Buspar -] 15 mg PO TID 12/26/19 Cholecalciferol (Vitamin D3) [Vitamin D3 -] 1,000 unit PO DAILY 12/26/19 Fluoxetine HCl 10 mg PO DAILY 12/26/19 Lorazepam [Ativan] 1 mg PO Q8H 12/26/19 Mag Hydrox/Aluminum Hyd/Simeth [Saritha-Lanta Liquid] 30 ml PO Q6H 12/26/19 Multivitamin [Poly-Vitamin] 1 each PO DAILY 12/26/19 Nystatin Cream [Mycostatin Cream -] 1 applic TD DAILY 12/26/19 Perphenazine 2 mg PO BID 12/26/19 Perphenazine 6 mg PO HS 12/26/19 Polyethylene Glycol 3350 [Glycolax] 17 gm PO DAILY 12/26/19 Potassium Chloride 20 meq PO DAILY 12/26/19 Quetiapine Fumarate [Seroquel -] 300 mg PO HS 12/26/19 Sennosides [Evac-U-Gen] 17.2 mg PO HS 12/26/19 Valproic Acid (As Sodium Salt) [Valproic Acid] 5 ml PO BID 12/26/19 Valproic Acid (As Sodium Salt) [Valproic Acid] 30 ml PO HS 12/26/19 traZODone HCL [Trazodone HCl] 100 mg PO HS 12/26/19 Physical Exam Vital Signs: Vital Signs Temperature 98.7 F 01/06/20 13:47 Pulse Rate 104 H 01/06/20 13:47 Respiratory Rate 20 01/06/20 13:47 Blood Pressure 120/72 01/06/20 13:47 O2 Sat by Pulse Oximetry (%) 97 01/06/20 09:00 Constitutional: Yes: Well Nourished, Calm Eyes: Yes: Conjunctiva Clear HENT: Yes: WNL Neck: Yes: WNL Cardiovascular: Yes: WNL Respiratory: Yes: WNL Gastrointestinal: Yes: WNL, Other (Sple is palapble 0.5 cm belwo CM at MCL) Labs: CBC, BMP 01/06/20 05:20 01/06/20 05:20 Assessment/Plan Anemsi. FOBT x 1 was negative. Probably anemia of chronic disease. I ordered an eruthropoietin level, and if not appropriately elevated, can start Procrit 40.000.00 units weeklyand then space the injections further out as needed to maintain a Hb 9-10.
--- NOTE | 2020-01-06 17:36 | PN ---
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 (short form) - Note 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: 34 Year old [place], history of TBI, , on eliquis for DVT, DM, Bipolar disorder. patient has only one seizure in past and was not on any AED inpast. Patiren has been on antipsychotic medicaiton and on depakote for behavior difficulty. She initialy presented with status epilepticus Patient was treated with versed and itubated. On admisisonPatient was treated for meningitis empirically, later abx were stopped after spinal tap Patient is able to follow simple command , no seizure over night , no new focal neuro symptoms, no new complain NEUROLOGICAL EXAMINATION opens eyes, follow simple command able to move all four extremity in limited fashion and blink her eye to command pupils reactive no seizure activity was seen limited neuro exam brain stem reflex, corneal, pupils reflex are present ct head showed right frontal lobe encephalomalacia spinal tap done wbc is 1 , and protein 90 ( less likely to be mningitis based upon ressults) mri of brain on december 31 no acute findings Assessment/Plan 34 year old female [place] resident, history of TBIMD , on eliquis for DVT, DM, Bipolar disorder. She is on multiple psych medicaiton including antidepressant and antipsychotic medicaiton , and depakote. Patient has only one seizure in past. Ct head showed encephalomalacia, mri of brain unremarkable baseline MR and encephalomalacia, bipolar disorder PLAN - Coneitnue venkat and depakote - continue supportive care Thanking you so much Gonsalo Shay MD
[2020-01-06] MEDS ORDERED: PT OWN MED DRAWER 7, Y5N ONE (23:04)
[2020-01-06] MEDS: FAMOTIDINE 40 MG/5 ML ORAL SUSPENSION NGT SCH (23:23)
[2020-01-06] MEDS: ASCORBIC ACID 500 MG/5 ML NGT SCH (23:25)
--- NOTE | 2020-01-07 | PN ---
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, Physician History of Present Illness: AWAKE IN BED NO ACUTE DISTRESS URINE C/S PROTEUS WBC WNL PLT COUNT IMPROVED - Current Medication List Current Medications: Active Medications Ascorbic Acid (Vitamin C Oral Solution -) 500 mg NGT BID [facility] Last Admin: 01/06/20 23:25 Dose: 500 mg Documented by: Famotidine (Pepcid) 20 mg NGT BID [facility] Last Admin: 01/06/20 23:23 Dose: 20 mg Documented by: Heparin Sodium (Porcine) (Heparin -) 5,000 unit SQ BID [facility] Last Admin: 01/06/20 23:26 Dose: 5,000 unit Documented by: Lactobacillus Acidophilus (Bacid -) 1 tab NGT DAILY [facility] Last Admin: 01/06/20 09:23 Dose: 1 tab Documented by: Levetiracetam (Keppra Oral Solution -) 1,500 mg NGT BID [facility] Multivitamins/Minerals (Certavite-Antioxidant Liquid) 15 ml NGT DAILY [facility] Nystatin (Mycostatin Cream -) 1 applic TP DAILY [facility] Last Admin: 01/06/20 09:29 Dose: 1 applic Documented by: Potassium Chloride (Potassium Chloride Oral Liquid) 40 meq PO DAILY [facility] Last Admin: 01/06/20 09:30 Dose: 40 meq Documented by: Valproate Sodium (Depakene -) 1,500 mg NGT TID [facility] Last Admin: 01/06/20 23:23 Dose: 1,500 mg Documented by: - Objective Vital Signs: Vital Signs Temperature 98.6 F 01/06/20 18:00 Pulse Rate 101 H 01/06/20 18:00 Respiratory Rate 20 01/06/20 18:00 Blood Pressure 130/84 01/06/20 18:00 O2 Sat by Pulse Oximetry (%) 97 01/06/20 09:00 Constitutional: Yes: No Distress Eyes: Yes: Conjunctiva Clear Cardiovascular: Yes: Regular Rate and Rhythm, S1, S2 Respiratory: Yes: CTA Bilaterally Gastrointestinal: Yes: Normal Bowel Sounds, Soft Edema: No Labs: CBC, BMP 01/06/20 05:20 01/06/20 05:20 INR, PTT INR 1.41 (0.83-1.09) H 12/26/19 01:16 Assessment/Plan S/P SEIZURES RESP FAILURE PROBABLE ASP PNEUMONIA OPACIFIED L HEMITHORAX NO EVIDENCE OF MENINGITIS + BC SCN = CONTAMINANT UTI THROMBOCYTOPENIA IMPROVED D/C ZOSYN OBSERVE OFF
[2020-01-07] MEDS: levETIRAcetam 500 MG/5 ML ORAL SOLUTION (UNIT-DOSE CUPS) NGT SCH ×3 (00:03→21:20)
[2020-01-07] MEDS ORDERED: PT OWN MED DRAWER 7, Y5N ONE ×2 (00:21→05:31)
[2020-01-07] MEDS: VALPROATE SODIUM 250 MG/5 ML UNIT DOSE CUP NGT SCH ×3 (05:34→21:19)
[2020-01-07] MEDS: ASCORBIC ACID 500 MG/5 ML NGT SCH ×2 (09:35→21:18)
[2020-01-07] MEDS: POTASSIUM CHLORIDE ORAL LIQUID 20 MEQ/15 ML PO SCH (09:35)
[2020-01-07] MEDS: MULTIVIT-MINERALS ORAL LIQUID NGT SCH (09:35)
[2020-01-07] MEDS: HEPARIN NA (PORCINE) 5,000 UNITS/ML 1ML VIAL SQ SCH ×2 (09:36→21:18)
[2020-01-07] MEDS: LACTOBACILLUS ACIDOPHILUS 1 TABLET NGT SCH (09:36)
[2020-01-07] MEDS: FAMOTIDINE 40 MG/5 ML ORAL SUSPENSION NGT SCH (09:37)
[2020-01-07] MEDS: NYSTATIN 100,000 UNIT/GM TOPICAL CREAM 15 GM TUBE TP SCH (09:38)
[2020-01-07] MEDS ORDERED: MULTIVIT-MINERALS ORAL LIQUID NGT SCH (10:00)
--- NOTE | 2020-01-07 11:16 | PN ---
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, Physician Chief Complaint: Status Epilepticus Acute Respiratory Failure UTI Bacteremia Sepsis +Troponins likely Demand Ischemia Recent COVID19 Bipolar Disorder Mental Retardation DM h/o TBI h/o DVT Anemia History of Present Illness: NAD More alert today, able to voice her name, lift he head somewhat. is able to express pain when IV inserted. Knows her name, doesn't know where she is or today's date. Denies any pain NGT still in place, wants to eat Off abx now - Current Medication List Current Medications: Active Medications Ascorbic Acid (Vitamin C Oral Solution -) 500 mg NGT BID [facility] Last Admin: 01/07/20 09:35 Dose: 500 mg Documented by: Famotidine (Pepcid) 20 mg NGT BID [facility] Last Admin: 01/07/20 09:37 Dose: 20 mg Documented by: Heparin Sodium (Porcine) (Heparin -) 5,000 unit SQ BID [facility] Last Admin: 01/07/20 09:36 Dose: 5,000 unit Documented by: Lactobacillus Acidophilus (Bacid -) 1 tab NGT DAILY [facility] Last Admin: 01/07/20 09:36 Dose: 1 tab Documented by: Levetiracetam (Keppra Oral Solution -) 1,500 mg NGT BID [facility] Last Admin: 01/07/20 09:37 Dose: 1,500 mg Documented by: Multivitamins/Minerals (Certavite-Antioxidant Liquid) 15 ml NGT DAILY [facility] Last Admin: 01/07/20 09:35 Dose: 15 ml Documented by: Nystatin (Mycostatin Cream -) 1 applic TP DAILY [facility] Last Admin: 01/07/20 09:38 Dose: 1 applic Documented by: Potassium Chloride (Potassium Chloride Oral Liquid) 40 meq PO DAILY [facility] Last Admin: 01/07/20 09:35 Dose: 40 meq Documented by: Valproate Sodium (Depakene -) 1,500 mg NGT TID [facility] Last Admin: 01/07/20 05:34 Dose: 1,500 mg Documented by: - Objective Vital Signs: Vital Signs Temperature 97.4 F L 01/07/20 05:45 Pulse Rate 103 H 01/07/20 05:45 Respiratory Rate 20 01/07/20 05:45 Blood Pressure 128/82 01/07/20 05:45 O2 Sat by Pulse Oximetry (%) 96 01/06/20 21:00 Constitutional: Yes: Well Nourished, No Distress, Calm, Obese Cardiovascular: Yes: Regular Rate and Rhythm Respiratory: Yes: Regular, Diminished Gastrointestinal: Yes: Normal Bowel Sounds, Soft, Abdomen, Obese, Tenderness (diffuse) Genitourinary: Yes: Incontinence Musculoskeletal: Yes: Muscle Weakness Extremities: Yes: Other Edema: No Peripheral Pulses WNL: Yes Neurological: Yes: Alert, Pre-Existing Deficit Psychiatric: Yes: Alert Labs: CBC, BMP 01/06/20 05:20 01/06/20 05:20 INR, PTT INR 1.41 (0.83-1.09) H 12/26/19 01:16 Problem List - Problems (1) Hypokalemia Assessment/Plan: -Resolved Problems reviewed: Yes Code(s): E87.6 - HYPOKALEMIA (2) Respiratory failure Assessment/Plan: -resolved -Pulmonary on board -On Nasal O2 to keep SpO2>90% Problems reviewed: Yes Code(s): J96.90 - RESPIRATORY FAILURE, UNSP, UNSP W HYPOXIA OR HYPERCAPNIA (3) Status epilepticus Assessment/Plan: -Neurology on board -MRI brain unremarkable -CSF negative for any acute etiology -Continue Depakote- change to NGT -Continue Keppra- change to NGT -CT head showed right frontal lobe encephalomalacia Problems reviewed: Yes Code(s): G40.901 - EPILEPSY, UNSP, NOT INTRACTABLE, WITH STATUS EPILEPTICUS (4) Pneumonia Assessment/Plan: -Likely aspiration -Speech pathology on board -Pt refusing to eat at this time -ID on board -Off abx -Afebrile -No leukocytosis -Continue NGT feeds for now -Left message for pt's Uncle/ NOK Lars Kehinde to call back to discuss plan of care. Problems reviewed: Yes Code(s): J18.9 - PNEUMONIA, UNSPECIFIED ORGANISM (5) UTI (urinary tract infection) Assessment/Plan: -resolved -treated with IV abx Problems reviewed: Yes Code(s): N39.0 - URINARY TRACT INFECTION, SITE NOT SPECIFIED (6) Metabolic encephalopathy Assessment/Plan: -resolved Problems reviewed: Yes Code(s): G93.41 - METABOLIC ENCEPHALOPATHY (7) Anemia Assessment/Plan: -Iron, B12 unremarkable -stool OB negative -Thyroid profile normal -monitor trend Problems reviewed: Yes Code(s): D64.9 - ANEMIA, UNSPECIFIED (8) Diabetes Assessment/Plan: -A1c at 5.1 -D/C BGM AC HS -D/C ISS Problems reviewed: Yes Code(s): E11.9 - TYPE 2 DIABETES MELLITUS WITHOUT COMPLICATIONS (9) Abdominal pain Assessment/Plan: diffuse abd pain -U/S abd Problems reviewed: Yes Code(s): R10.9 - UNSPECIFIED ABDOMINAL PAIN Assessment/Plan See problem list
--- NOTE | 2020-01-07 14:10 | PN ---
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, TYPE COPY EXAMINER - Note 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: Assessed at bedside. Pt adamantly refused PO trials, shaking head no, stating "nothing". Pt drooling, unable to swallow saliva. NGT in place. MBS indicated, however, if pt is refusing PO trials, she likely will not accept enough PO for sufficient nutrition. Additionally, drooling indicative of dysphagia with impaired swallow initiation and saliva management. Consider- PEG insertion, with goal to wean from TF in future as swallowing improves.
--- NOTE | 2020-01-07 16:06 | PN ---
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 (short form) - Note 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: Resting in NAD on 3 L NC O2. No acute events overnight. Intake & Output 01/04/20 01/05/20 01/06/20 01/07/20 23:59 23:59 23:59 23:59 Intake Total 2595 510 2350 0 Balance 2595 510 2350 0 Last Vital Signs Temp Pulse Resp BP Pulse Ox 98.3 F 107 H 20 104/57 L 99 01/07/20 14:59 01/07/20 14:59 01/07/20 14:59 01/07/20 14:59 01/07/20 09:00 Active Medications Ascorbic Acid (Vitamin C Oral Solution -) 500 mg NGT BID [facility] Last Admin: 01/07/20 09:35 Dose: 500 mg Documented by: Famotidine (Pepcid) 20 mg NGT BID [facility] Last Admin: 01/07/20 09:37 Dose: 20 mg Documented by: Heparin Sodium (Porcine) (Heparin -) 5,000 unit SQ BID [facility] Last Admin: 01/07/20 09:36 Dose: 5,000 unit Documented by: Lactobacillus Acidophilus (Bacid -) 1 tab NGT DAILY [facility] Last Admin: 01/07/20 09:36 Dose: 1 tab Documented by: Levetiracetam (Keppra Oral Solution -) 1,500 mg NGT BID [facility] Last Admin: 01/07/20 09:37 Dose: 1,500 mg Documented by: Multivitamins/Minerals (Certavite-Antioxidant Liquid) 15 ml NGT DAILY [facility] Last Admin: 01/07/20 09:35 Dose: 15 ml Documented by: Nystatin (Mycostatin Cream -) 1 applic TP DAILY [facility] Last Admin: 01/07/20 09:38 Dose: 1 applic Documented by: Potassium Chloride (Potassium Chloride Oral Liquid) 40 meq PO DAILY [facility] Last Admin: 01/07/20 09:35 Dose: 40 meq Documented by: Valproate Sodium (Depakene -) 1,500 mg NGT TID [facility] Last Admin: 01/07/20 15:01 Dose: 1,500 mg Documented by: Constitutional: Yes: NAD Eyes: Yes: WNL HENT: Yes: WNL Neck: Yes: WNL Cardiovascular: Yes: Regular Rate and Rhythm, S1, S2 Respiratory: Yes: diminished at the bases Gastrointestinal: Yes: Normal Bowel Sounds, Soft Extremities: Yes: WNL Edema: No Labs: Problem List - Problems (1) Hypokalemia Code(s): E87.6 - HYPOKALEMIA (2) Respiratory failure Code(s): J96.90 - RESPIRATORY FAILURE, UNSP, UNSP W HYPOXIA OR HYPERCAPNIA (3) Status epilepticus Code(s): G40.901 - EPILEPSY, UNSP, NOT INTRACTABLE, WITH STATUS EPILEPTICUS Assessment/Plan ASSESS: s/p Status Epilepticus s/p Acute Respiratory Failure UTI Bacteremia Sepsis +Troponins likely Demand Ischemia Recent COVID19 Bipolar Disorder Mental Retardation DM h/o TBI h/o DVT Anemia PLAN: - AEDs per neuro - ABX per ID - Monitor UOP and BMP - Replete electrolytes - VTE prophylaxis - enteral feeds - GI prophylaxis Dr Poe
--- NOTE | 2020-01-07 20:03 | CON.GI ---
Consult Consult Specialty:: Gastroenterology Referred by:: Richard Calle NP Reason for Consultation:: Abdominal pain. Consider PEG reinsertion - History of Present Illness Chief Complaint: offers no complaints History of Present Illness: 34F transferred from [facility] in status epilepticus requiring intubation. She was hospitalized at [facility] earlier this month with a seizure following a fall and striking her head. Imaging revealed no hemorrhage. LP revealed only 1 WBC and no growth. Leeanna has not cooperated adequately enough to allow Will[facility] Stovall to complete an evaluation. Leeanna whispers 1-4 word replies to my questions and of fered no reliable history or complaints. She nodded affirmatively when I asked whether she was hungry and negatively when asked if she had stomach pain. She appears to be tolerating NG feedings well. I called her next of kin Lars Busby who is her uncle. 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 She has been institutionalized since then but was conversant, able to ambulate and eat until she was hospitalized at [facility] with COVID pneumonia in October. She had the G tube inserted then but regained the ability to eat and speak while at [facility]. She suffered several seizures when transferred to [place] but these were her first. She was hospitalized at [facility] for these. Following these seizures she had significant cognitive decline and lost her ability to speak clearly and had difficulty swallowing her medications. He is not aware of her having any GI problems. Her mother i disabled by MS. - History Source History Provided By: Family Member, Medical Record Limitations to Obtaining History: Other (altered mental status ?) - Past Medical History CELL LEAD: Yes: Seizure Cardio/Vascular: Yes: Deep Vein Thrombosis (on Eliquis) Gastrointestinal: Yes: Other (previous G tube insertion 11/03 ) Heme/Onc: Yes: Anemia Infectious Disease: Yes: Other (encephalitis in 2000 with residual cognitive functioning that left her institutionalized. COVID 19 pneumonia 11/03) Psych: Yes: Bipolar Endocrine: Yes: Diabetes Mellitus (prediabetic according to her uncle) - Past Surgical History Additional Surgical History: G tube insertion - Alcohol/Substance Use Hx Alcohol Use: No History of Substance Use: reports: None - Smoking History Smoking history: Never smoked - Social History Usual Living Arrangement: Senior Living ADL: Support Services Place of : [facility] Medications - Allergies Allergies/Adverse Reactions: Allergies Allergy/AdvReac Type Severity Reaction Status Date / Time haloperidol [From Haldol] Allergy Verified 12/26/19 01:53 NSAIDS (Non-Steroidal Allergy Verified 12/26/19 01:53 Anti-Inflamma - Home Medications Home Medications: Ambulatory Orders Acetaminophen [Pain Relief] 650 mg PO Q6H PRN 12/26/19 Apixaban [Eliquis] 2.5 mg PO BID 12/26/19 Benztropine Mesylate 1 mg PO BID 12/26/19 Buspirone HCl [Buspar -] 15 mg PO TID 12/26/19 Cholecalciferol (Vitamin D3) [Vitamin D3 -] 1,000 unit PO DAILY 12/26/19 Fluoxetine HCl 10 mg PO DAILY 12/26/19 Lorazepam [Ativan] 1 mg PO Q8H 12/26/19 Mag Hydrox/Aluminum Hyd/Simeth [Saritha-Lanta Liquid] 30 ml PO Q6H 12/26/19 Multivitamin [Poly-Vitamin] 1 each PO DAILY 12/26/19 Nystatin Cream [Mycostatin Cream -] 1 applic TD DAILY 12/26/19 Perphenazine 2 mg PO BID 12/26/19 Perphenazine 6 mg PO HS 12/26/19 Polyethylene Glycol 3350 [Glycolax] 17 gm PO DAILY 12/26/19 Potassium Chloride 20 meq PO DAILY 12/26/19 Quetiapine Fumarate [Seroquel -] 300 mg PO HS 12/26/19 Sennosides [Evac-U-Gen] 17.2 mg PO HS 12/26/19 Valproic Acid (As Sodium Salt) [Valproic Acid] 5 ml PO BID 12/26/19 Valproic Acid (As Sodium Salt) [Valproic Acid] 30 ml PO HS 12/26/19 traZODone HCL [Trazodone HCl] 100 mg PO HS 12/26/19 Family Medical History Family Hx Nuerologic Problems: Mother (multiple sclerosis) Review of Systems Unable to obtain ROS, reason: not adequately communcati Physical Exam-GI Vital Signs: Vital Signs Temperature 99.4 F 01/07/20 18:40 Pulse Rate 118 H 01/07/20 18:40 Respiratory Rate 20 01/07/20 18:40 Blood Pressure 127/51 L 01/07/20 18:40 O2 Sat by Pulse Oximetry (%) 99 06/23/20 09:00 CBC,CMP WBC 8.8 K/mm3 (4.0-10.0) 01/06/20 05:20 Corrected WBC (auto) Cancelled 12/25/19 23:59 RBC 2.79 M/mm3 (3.60-5.2) L 01/06/20 05:20 Hgb 8.6 GM/dL (10.7-15.3) L 01/06/20 05:20 Hct 26.2 % (32.4-45.2) L 01/06/20 05:20 MCV 93.9 fl (80-96) 01/06/20 05:20 MCH 30.8 pg (25.7-33.7) 01/06/20 05:20 MCHC 32.8 g/dl (32.0-36.0) 01/06/20 05:20 RDW 16.1 % (11.6-15.6) H 01/06/20 05:20 Plt Count 269 K/MM3 (134-434) D 01/06/20 05:20 MPV 8.8 fl (7.5-11.1) 01/06/20 05:20 Absolute Neuts (auto) 4.1 K/mm3 (1.5-8.0) 01/06/20 05:20 Neutrophils % 46.4 % (42.8-82.8) 01/06/20 05:20 Neutrophils % (Manual) 31.7 % (42.8-82.8) L 01/06/20 05:20 Band Neutrophils % 2.0 % 01/06/20 05:20 Lymphocytes % 40.2 % (8-40) H D 01/06/20 05:20 Lymphocytes % (Manual) 55.4 % (8-40) H D 01/06/20 05:20 Monocytes % 11.1 % (3.8-10.2) H 01/06/20 05:20 Monocytes % (Manual) 6 % (3.8-10.2) 01/06/20 05:20 Eosinophils % 1.7 % (0-4.5) 01/06/20 05:20 Eosinophils % (Manual) 0.0 % (0-4.5) D 01/06/20 05:20 Basophils % 0.6 % (0-2.0) 01/06/20 05:20 Basophils % (Manual) 1.0 % (0-2.0) 01/06/20 05:20 Myelocytes % (Man) 4 % (0-2) H D 01/06/20 05:20 Promyelocytes % (Man) 0 % (0-2) 01/06/20 05:20 Blast Cells % (Manual) 0 % (0-0) 01/06/20 05:20 Nucleated RBC % 0 % (0-0) 01/06/20 05:20 Metamyelocytes 0 % (0-2) 01/06/20 05:20 Manual Slide Review Cancelled 12/25/19 23:59 Hypochromia 0 01/06/20 05:20 Platelet Estimate Normal 01/06/20 05:20 Platelet Comment Present 01/06/20 05:20 Polychromasia 1+ 01/06/20 05:20 Poikilocytosis 1+ 01/06/20 05:20 Basophilic Stippling 1+ 01/06/20 05:20 Anisocytosis 1+ 01/06/20 05:20 Microcytosis 1+ 01/06/20 05:20 Macrocytosis 0 01/06/20 05:20 Spherocytes 1+ 01/06/20 05:20 Target Cells 1+ 01/06/20 05:20 Tear Drop Cells 1+ 01/03/20 06:10 Ovalocytes 1+ 01/06/20 05:20 Stomatocytes 1+ 01/06/20 05:20 Angelica Cells 1+ 01/03/20 06:10 Acanthocytes (Spur) 1+ 01/06/20 05:20 ESR 35 mm/hr (0-20) H 12/26/19 01:16 Sodium 142 mmol/L (136-145) 01/06/20 05:20 Potassium 3.9 mmol/L (3.5-5.1) 01/06/20 05:20 Chloride 103 mmol/L (98-107) 01/06/20 05:20 Carbon Dioxide 31 mmol/L (21-32) 01/06/20 05:20 Anion Gap 8 MMOL/L (8-16) 01/06/20 05:20 BUN 18.6 mg/dL (7-18) H 01/06/20 05:20 Creatinine 0.5 mg/dL (0.55-1.3) L 01/06/20 05:20 Est GFR (CKD-EPI)AfAm 148.42 01/06/20 05:20 Est GFR (CKD-EPI)NonAf 128.06 01/06/20 05:20 POC Glucometer 124 UNITS (80-120) 01/06/20 05:48 Random Glucose 114 mg/dL (74-106) H 01/06/20 05:20 Hemoglobin A1c % 5.1 % (4.2-6.3) 01/03/20 06:10 Lactic Acid 1.2 mmol/L (0.4-2.0) 12/26/19 01:16 Calcium 9.9 mg/dL (8.5-10.1) 01/06/20 05:20 Phosphorus 2.3 mg/dL (2.5-4.9) L 01/01/20 06:30 Magnesium 2.1 mg/dL (1.8-2.4) 01/01/20 06:30 Iron 132 ug/dL (50-175) 01/03/20 06:10 TIBC 254 ug/dL (250-450) 01/03/20 06:10 Iron Saturation 51 % (17.5-39) H 01/03/20 06:10 Unsaturated IBC 122 ug/dL (200-275) L 01/03/20 06:10 Ferritin 135.0 ng/ml (8-388) 01/03/20 06:10 Total Bilirubin 0.3 mg/dL (0.2-1) 01/06/20 05:20 AST 17 U/L (15-37) 01/06/20 05:20 ALT 13 U/L (13-61) 01/06/20 05:20 Alkaline Phosphatase 51 U/L (45-117) 01/06/20 05:20 LD Total 364 U/L (84-246) H 12/26/19 01:16 LD Total Cancelled 12/26/19 01:16 Creatine Kinase 723 U/L (26-192) H 12/27/19 06:45 Creatine Kinase Index 0.1 % (0.0-5.0) 12/27/19 06:45 CK-MB (CK-2) 1.3 ng/mL (0.5-3.6) 12/27/19 06:45 Troponin I 2.36 ng/ml (0.00-0.05) H* 12/26/19 05:30 C-Reactive Protein 1.2 MG/DL (0.00-0.3) H 12/26/19 01:16 B-Natriuretic Peptide 4123.9 pg/ml (5-125) H 12/27/19 06:45 Total Protein 6.5 g/dl (6.4-8.2) 01/06/20 05:20 Albumin 2.5 g/dl (3.4-5.0) L 01/06/20 05:20 Vitamin B12 658 pg/ml (193-986) 01/03/20 06:10 TSH 1.13 uIU/ml (0.358-3.74) 12/26/19 01:16 Current Medications Generic Name Dose Route Start Last Admin Trade Name Artemioq PRN Reason Stop Dose Admin Ascorbic Acid 500 mg 01/06/20 22:00 01/07/20 09:35 Vitamin C Oral Solution - NGT 500 mg BID [facility] Administration Famotidine 20 mg 01/06/20 22:00 01/07/20 09:37 Pepcid NGT 20 mg BID [facility] Administration Heparin Sodium (Porcine) 5,000 unit 12/31/19 22:00 01/07/20 09:36 Heparin - SQ 5,000 unit BID [facility] Administration Lactobacillus Acidophilus 1 tab 01/04/20 10:00 01/07/20 09:36 Bacid - NGT 1 tab DAILY [facility] Administration Levetiracetam 1,500 mg 01/06/20 22:00 01/07/20 09:37 Keppra Oral Solution - NGT 1,500 mg BID [facility] Administration Multivitamins/Minerals 15 ml 01/07/20 10:00 01/07/20 09:35 Certavite-Antioxidant Liquid NGT 15 ml DAILY [facility] Administration Nystatin 1 applic 01/01/20 10:00 01/07/20 09:38 Mycostatin Cream - TP 1 applic DAILY [facility] Administration Potassium Chloride 40 meq 01/02/20 13:00 01/07/20 09:35 Potassium Chloride Oral Liquid PO 40 meq DAILY [facility] Administration Valproate Sodium 1,500 mg 01/06/20 14:00 01/07/20 15:01 Depakene - NGT 1,500 mg TID [facility] Administration Constitutional: Yes: Calm, Other (NG feedings) Eyes: Yes: Conjunctiva Clear HENT: Yes: Normocephalic Neck: Yes: Trachea Midline Cardiovascular: Yes: Regular Rate and Rhythm Respiratory: Yes: CTA Bilaterally Gastrointestinal Inspection: Yes: Scars (LUQ ? PEG scar) ...Auscultate: Yes: Hypoactive Bowel Sounds ...Palpate: Yes: Soft, Other (nontender) ...Rectal Exam: Yes: Deferred (patient did not comprehend when I asked permission to do this exam) Labs: CBC, BMP 01/06/20 05:20 01/06/20 05:20 INR, PTT INR 1.41 (0.83-1.09) H 12/26/19 01:16 Problem List - Problems (1) Dysphagia Code(s): R13.10 - DYSPHAGIA, UNSPECIFIED (2) Abdominal pain Code(s): R10.9 - UNSPECIFIED ABDOMINAL PAIN (3) History of gastrostomy tube placement Code(s): BAT4738 - (4) Diabetes Code(s): E11.9 - TYPE 2 DIABETES MELLITUS WITHOUT COMPLICATIONS (5) Metabolic encephalopathy Code(s): G93.41 - METABOLIC ENCEPHALOPATHY (6) Status epilepticus Code(s): G40.901 - EPILEPSY, UNSP, NOT INTRACTABLE, WITH STATUS EPILEPTICUS (7) Anemia Code(s): D64.9 - ANEMIA, UNSPECIFIED Assessment/Plan Impression: - Unable to determine nature of swallowing difficulty given patient's current inability to cooperate. It appears to be temporally related to her seizures - Denies pain at present and is tolerating NG feeding without vomiting. Had a single BM today. -- Stool for occult blood negative Plan: -- Sonogram of the abdomen to exclude gallstones, masses , ascites - already ordered -- MBS if/when possible -- PPI empirically and as stress gastritis prophylaxis -- I discussed endoscopic PEG vs IR insertion of G tube. Given that the patient already has an NG tube and that IR method avoids MAC anesthesia and upper endoscopy I have advised this method to Leeanna's uncle, Mr. Lars Busby. He is inclined to consent . Avoid Eliquis until this is done. Vit K ordered
[2020-01-07] MEDS ORDERED: PHYTONADIONE 10 MG/1 ML AMP IVPB ONE (21:11)
--- NOTE | 2020-01-07 22:00 | PN ---
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 (short form) - Note 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: 34 Year old female [place] resident, history of TBI, , on eliquis for DVT, DM, Bipolar disorder. patient has only one seizure in past and was not on any AED inpast. Sundarn has been on antipsychotic medicaiton and on depakote for behavior difficulty. She initialy presented with status epilepticus Patient was treated with versed and itubated. On admisisonPatient was treated for meningitis empirically, later abx were stopped after spinal tap Patient is able to follow simple command , no acute dsitress, appears to be bright. Planning for G tube placement NEUROLOGICAL EXAMINATION opens eyes, follow simple command able to move all four extremity in limited fashion and blink her eye to command pupils reactive no seizure activity was seen limited neuro exam brain stem reflex, corneal, pupils reflex are present ct head showed right frontal lobe encephalomalacia spinal tap done wbc is 1 , and protein 90 ( less likely to be mningitis based upon ressults) mri of brain on december 31 no acute findings Assessment/Plan 34 year old female [place] resident, history of TBIMD , on eliquis for DVT, DM, Bipolar disorder. She is on multiple psych medicaiton including antidepressant and antipsychotic medicaiton , and depakote. Patient has only one seizure in past. Ct head showed encephalomalacia, mri of brain unremarkable baseline MR and encephalomalacia, bipolar disorder PLAN - Coneitnue kenavid and depakote - continue supportive care Thanking you so much Gonsalo Shay MD
[2020-01-08] MEDS: VALPROATE SODIUM 250 MG/5 ML UNIT DOSE CUP NGT SCH ×3 (05:40→21:43)
[2020-01-08] MEDS: POTASSIUM CHLORIDE ORAL LIQUID 20 MEQ/15 ML PO SCH (09:58)
[2020-01-08] MEDS: LACTOBACILLUS ACIDOPHILUS 1 TABLET NGT SCH (09:58)
[2020-01-08] MEDS: NYSTATIN 100,000 UNIT/GM TOPICAL CREAM 15 GM TUBE TP SCH (09:59)
[2020-01-08] MEDS: PANTOPRAZOLE SODIUM 40 MG VIAL IVPUSH SCH (09:59)
[2020-01-08] MEDS: ASCORBIC ACID 500 MG/5 ML NGT SCH ×2 (10:00→21:44)
[2020-01-08] MEDS: HEPARIN NA (PORCINE) 5,000 UNITS/ML 1ML VIAL SQ SCH (10:00)
[2020-01-08] MEDS: levETIRAcetam 500 MG/5 ML ORAL SOLUTION (UNIT-DOSE CUPS) NGT SCH ×2 (10:00→21:44)
[2020-01-08] MEDS: MULTIVIT-MINERALS ORAL LIQUID NGT SCH (10:01)
--- NOTE | 2020-01-08 10:34 | PN ---
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, Physician Chief Complaint: Status Epilepticus Acute Respiratory Failure UTI Bacteremia Sepsis +Troponins likely Demand Ischemia Recent COVID19 Bipolar Disorder Mental Retardation DM h/o TBI h/o DVT Anemia History of Present Illness: NAD lethargic today Opens her eyes to verbal response Is able to tall me her name, her uncle's name. She is able to stick her tongue out for me upon command. When asked, wants to eat but upon offering her favorite strawberry ice cream, she wouldn't accept it orally. Upon asking why, she states she is too tired. - Current Medication List Current Medications: Active Medications Ascorbic Acid (Vitamin C Oral Solution -) 500 mg NGT BID [facility] Last Admin: 01/08/20 10:00 Dose: 500 mg Documented by: Enoxaparin Sodium (Lovenox -) 100 mg SQ Q12H [facility] Lactobacillus Acidophilus (Bacid -) 1 tab NGT DAILY [facility] Last Admin: 01/08/20 09:58 Dose: 1 tab Documented by: Levetiracetam (Keppra Oral Solution -) 1,500 mg NGT BID [facility] Last Admin: 01/08/20 10:00 Dose: 1,500 mg Documented by: Multivitamins/Minerals (Certavite-Antioxidant Liquid) 15 ml NGT DAILY [facility] Last Admin: 01/08/20 10:01 Dose: 15 ml Documented by: Nystatin (Mycostatin Cream -) 1 applic TP DAILY [facility] Last Admin: 01/08/20 09:59 Dose: 1 applic Documented by: Pantoprazole Sodium (Protonix Iv) 40 mg IVPUSH DAILY [facility] Last Admin: 01/08/20 09:59 Dose: 40 mg Documented by: Potassium Chloride (Potassium Chloride Oral Liquid) 40 meq PO DAILY [facility] Last Admin: 01/08/20 09:58 Dose: 40 meq Documented by: Valproate Sodium (Depakene -) 1,500 mg NGT TID [facility] Last Admin: 01/08/20 05:40 Dose: 1,500 mg Documented by: - Objective Vital Signs: Vital Signs Temperature 98.6 F 01/08/20 05:53 Pulse Rate 108 H 01/08/20 05:53 Respiratory Rate 20 01/08/20 05:53 Blood Pressure 121/60 01/08/20 05:53 O2 Sat by Pulse Oximetry (%) 98 01/07/20 21:00 Constitutional: Yes: Well Nourished, No Distress, Calm Cardiovascular: Yes: Regular Rate and Rhythm, S1, S2 Respiratory: Yes: Regular, Diminished Gastrointestinal: Yes: Normal Bowel Sounds, Soft, Abdomen, Obese Genitourinary: Yes: Incontinence Musculoskeletal: Yes: Muscle Weakness Extremities: Yes: Other (generalized atrophy) Edema: No Peripheral Pulses WNL: Yes Neurological: Yes: Alert, Pre-Existing Deficit Psychiatric: Yes: Alert Labs: CBC, BMP 01/06/20 05:20 01/06/20 05:20 INR, PTT INR 1.41 (0.83-1.09) H 12/26/19 01:16 Problem List - Problems (1) Hypokalemia Assessment/Plan: -Resolved Problems reviewed: Yes Code(s): E87.6 - HYPOKALEMIA (2) Respiratory failure Assessment/Plan: -resolved -Pulmonary on board -On Nasal O2 to keep SpO2>90% Problems reviewed: Yes Code(s): J96.90 - RESPIRATORY FAILURE, UNSP, UNSP W HYPOXIA OR HYPERCAPNIA (3) Status epilepticus Assessment/Plan: -Neurology on board -MRI brain unremarkable -CSF negative for any acute etiology -Continue Depakote- change to NGT -Continue Keppra- change to NGT -CT head showed right frontal lobe encephalomalacia Problems reviewed: Yes Code(s): G40.901 - EPILEPSY, UNSP, NOT INTRACTABLE, WITH STATUS EPILEPTICUS (4) Pneumonia Assessment/Plan: -Likely aspiration -Speech pathology on board -Pt refusing to eat at this time -ID on board -Off abx -Afebrile -No leukocytosis -Continue NGT feeds for now -Left message for pt's Uncle/ NOK Lars Busby to call back to discuss plan of care. Problems reviewed: Yes Code(s): J18.9 - PNEUMONIA, UNSPECIFIED ORGANISM (5) UTI (urinary tract infection) Assessment/Plan: -resolved -treated with IV abx Problems reviewed: Yes Code(s): N39.0 - URINARY TRACT INFECTION, SITE NOT SPECIFIED (6) Metabolic encephalopathy Assessment/Plan: -resolved Problems reviewed: Yes Code(s): G93.41 - METABOLIC ENCEPHALOPATHY (7) Anemia Assessment/Plan: -Iron, B12 unremarkable -stool OB negative -Thyroid profile normal -monitor trend Problems reviewed: Yes Code(s): D64.9 - ANEMIA, UNSPECIFIED (8) Diabetes Assessment/Plan: -A1c at 5.1 -D/C BGM AC HS -D/C ISS Problems reviewed: Yes Code(s): E11.9 - TYPE 2 DIABETES MELLITUS WITHOUT COMPLICATIONS (9) Abdominal pain Assessment/Plan: -abd resolved -U/S abd: cholelithiasis without obstruction, left renal mass, which can be explored with CT abd Problems reviewed: Yes Code(s): R10.9 - UNSPECIFIED ABDOMINAL PAIN (10) Failure to thrive Assessment/Plan: -Spoke to pt's uncle Lars, who will discuss about G tube for the pt with pt's grandmother, as pt's mother is disabled from MS -GI also in touch with pt's Uncle -Speech pathology to try bedside swallow later today -Will touch base again in AM Problems reviewed: Yes Code(s): BFJ9580 - (11) History of DVT (deep vein thrombosis) Assessment/Plan: -There's no record of when did pt have DVT's. Pt's uncle doesn't know when it was. -Lovenox 100 mg BID Problems reviewed: Yes Code(s): Z86.718 - PERSONAL HISTORY OF OTHER VENOUS THROMBOSIS AND EMBOLISM Assessment/Plan See problem list
--- NOTE | 2020-01-08 10:44 | PN ---
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 (short form) - Note 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: Resting in NAD on 3 L NC O2. Lethargic but arousable. No acute events overnight. Intake & Output 01/05/20 01/06/20 01/07/20 01/08/20 23:59 23:59 23:59 23:59 Intake Total 510 2350 400 700 Balance 510 2350 400 700 Last Vital Signs Temp Pulse Resp BP Pulse Ox 98.6 F 108 H 20 121/60 98 01/08/20 05:53 01/08/20 05:53 01/08/20 05:53 01/08/20 05:53 01/07/20 21:00 Active Medications Ascorbic Acid (Vitamin C Oral Solution -) 500 mg NGT BID [facility] Last Admin: 01/08/20 10:00 Dose: 500 mg Documented by: Enoxaparin Sodium (Lovenox -) 100 mg SQ Q12H [facility] Lactobacillus Acidophilus (Bacid -) 1 tab NGT DAILY [facility] Last Admin: 01/08/20 09:58 Dose: 1 tab Documented by: Levetiracetam (Keppra Oral Solution -) 1,500 mg NGT BID [facility] Last Admin: 01/08/20 10:00 Dose: 1,500 mg Documented by: Multivitamins/Minerals (Certavite-Antioxidant Liquid) 15 ml NGT DAILY [facility] Last Admin: 01/08/20 10:01 Dose: 15 ml Documented by: Nystatin (Mycostatin Cream -) 1 applic TP DAILY [facility] Last Admin: 01/08/20 09:59 Dose: 1 applic Documented by: Pantoprazole Sodium (Protonix Iv) 40 mg IVPUSH DAILY [facility] Last Admin: 01/08/20 09:59 Dose: 40 mg Documented by: Potassium Chloride (Potassium Chloride Oral Liquid) 40 meq PO DAILY [facility] Last Admin: 01/08/20 09:58 Dose: 40 meq Documented by: Valproate Sodium (Depakene -) 1,500 mg NGT TID [facility] Last Admin: 01/08/20 05:40 Dose: 1,500 mg Documented by: Constitutional: Yes: NAD Eyes: Yes: WNL HENT: Yes: WNL Neck: Yes: WNL Cardiovascular: Yes: Regular Rate and Rhythm, S1, S2 Respiratory: Yes: diminished at the bases Gastrointestinal: Yes: Normal Bowel Sounds, Soft Extremities: Yes: WNL Edema: No Labs: Laboratory Results - last hr 01/06/20 15:30 Erythropoietin 69.9 H Problem List - Problems (1) Hypokalemia Code(s): E87.6 - HYPOKALEMIA (2) Respiratory failure Code(s): J96.90 - RESPIRATORY FAILURE, UNSP, UNSP W HYPOXIA OR HYPERCAPNIA (3) Status epilepticus Code(s): G40.901 - EPILEPSY, UNSP, NOT INTRACTABLE, WITH STATUS EPILEPTICUS Assessment/Plan ASSESS: s/p Status Epilepticus s/p Acute Respiratory Failure UTI Bacteremia Sepsis +Troponins likely Demand Ischemia Recent COVID19 Bipolar Disorder Mental Retardation DM h/o TBI h/o DVT Anemia PLAN: - AEDs per neuro - ABX per ID - Monitor UOP and BMP - Replete electrolytes - VTE prophylaxis - enteral feeds - GI prophylaxis Dr Poe
[2020-01-08] MEDS: ENOXAPARIN NA (PORCINE) 100 MG/1 ML DISP.SYRIN SQ SCH ×2 (12:39→21:43)
--- NOTE | 2020-01-08 15:08 | PN ---
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, MEAT SOAKER - Note 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: 34 yo seen at bedside for follow up to swallow eval to r/o dysphagia. Pt diamond bipin to refuse all po attempts with head shaking "NO" NGT in place for nutrition and hydration purposes. Recommendation: Pt refuses po attempts. Continue NPO stats at this time. Consider alternative method for providing medication, hydration and nutritional needs (PEG?) Results given verbally to charge aide and PCP via chart. MEAT SOAKER to follow up with another attempt with po trials.
--- NOTE | 2020-01-08 22:38 | PN ---
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 (short form) - Note 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: 34 Year old female [place] resident, history of TBI, , on eliquis for DVT, DM, Bipolar disorder. patient has only one seizure in past and was not on any AED inpast. Sam has been on antipsychotic medicaiton and on depakote for behavior difficulty. She initialy presented with status epilepticus Patient was treated with versed and itubated. On admisisonPatient was treated for meningitis empirically, later abx were stopped after spinal tap Patient is able to follow simple command , no acute dsitress, appears to be bright. Patient is refusing to eat and is npo NEUROLOGICAL EXAMINATION opens eyes, follow simple command able to move all four extremity in limited fashion and blink her eye to command pupils reactive no seizure activity was seen limited neuro exam brain stem reflex, corneal, pupils reflex are present ct head showed right frontal lobe encephalomalacia spinal tap done wbc is 1 , and protein 90 ( less likely to be mningitis based upon ressults) mri of brain on december 31 no acute findings Assessment/Plan 34 year old female [place] resident, history of TBIMD , on eliquis for DVT, DM, Bipolar disorder. She is on multiple psych medicaiton including antidepressant and antipsychotic medicaiton , and depakote. Patient has only one seizure in past. Ct head showed encephalomalacia, mri of brain unremarkable condition stable baseline MR and encephalomalacia, bipolar disorder PLAN - Coneitnue kegregoriora and depakote - continue supportive care Thanking you so much Gonsalo Shay MD
[2020-01-09] MEDS: VALPROATE SODIUM 250 MG/5 ML UNIT DOSE CUP NGT SCH ×3 (05:21→22:19)
[2020-01-09] MEDS: ENOXAPARIN NA (PORCINE) 100 MG/1 ML DISP.SYRIN SQ SCH ×2 (09:38→22:19)
[2020-01-09] MEDS: PANTOPRAZOLE SODIUM 40 MG VIAL IVPUSH SCH (09:38)
[2020-01-09] MEDS: ASCORBIC ACID 500 MG/5 ML NGT SCH ×2 (09:39→22:19)
[2020-01-09] MEDS: MULTIVIT-MINERALS ORAL LIQUID NGT SCH (09:39)
[2020-01-09] MEDS: LACTOBACILLUS ACIDOPHILUS 1 TABLET NGT SCH (09:39)
[2020-01-09] MEDS: levETIRAcetam 500 MG/5 ML ORAL SOLUTION (UNIT-DOSE CUPS) NGT SCH ×2 (09:40→22:19)
[2020-01-09] MEDS: NYSTATIN 100,000 UNIT/GM TOPICAL CREAM 15 GM TUBE TP SCH (09:40)
[2020-01-09] MEDS: POTASSIUM CHLORIDE ORAL LIQUID 20 MEQ/15 ML PO SCH (09:41)
--- NOTE | 2020-01-09 10:13 | PN ---
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 (short form) - Note 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: Resting in NAD on NC O2. No acute events overnight. Intake & Output 01/06/20 01/07/20 01/08/20 01/09/20 23:59 23:59 23:59 23:59 Intake Total 2350 400 1260 570 Balance 2350 400 1260 570 Last Vital Signs Temp Pulse Resp BP Pulse Ox 97.9 F 104 H 18 151/86 97 01/09/20 09:44 01/09/20 09:44 01/09/20 09:44 01/09/20 09:44 01/08/20 20:54 Active Medications Ascorbic Acid (Vitamin C Oral Solution -) 500 mg NGT BID [facility] Last Admin: 01/09/20 09:39 Dose: 500 mg Documented by: Enoxaparin Sodium (Lovenox -) 100 mg SQ BID [facility] Last Admin: 01/09/20 09:38 Dose: 100 mg Documented by: Lactobacillus Acidophilus (Bacid -) 1 tab NGT DAILY [facility] Last Admin: 01/09/20 09:39 Dose: 1 tab Documented by: Levetiracetam (Keppra Oral Solution -) 1,500 mg NGT BID [facility] Last Admin: 01/09/20 09:40 Dose: 1,500 mg Documented by: Multivitamins/Minerals (Certavite-Antioxidant Liquid) 15 ml NGT DAILY [facility] Last Admin: 01/09/20 09:39 Dose: 15 ml Documented by: Nystatin (Mycostatin Cream -) 1 applic TP DAILY [facility] Last Admin: 01/09/20 09:40 Dose: 1 applic Documented by: Pantoprazole Sodium (Protonix Iv) 40 mg IVPUSH DAILY [facility] Last Admin: 01/09/20 09:38 Dose: 40 mg Documented by: Potassium Chloride (Potassium Chloride Oral Liquid) 40 meq PO DAILY [facility] Last Admin: 01/09/20 09:41 Dose: 40 meq Documented by: Valproate Sodium (Depakene -) 1,500 mg NGT TID [facility] Last Admin: 01/09/20 05:21 Dose: 1,500 mg Documented by: Constitutional: Yes: NAD Eyes: Yes: WNL HENT: Yes: WNL Neck: Yes: WNL Cardiovascular: Yes: Regular Rate and Rhythm, S1, S2 Respiratory: Yes: diminished at the bases Gastrointestinal: Yes: Normal Bowel Sounds, Soft Extremities: Yes: WNL Edema: No Labs: Laboratory Results - last 24 hr 12/27/19 12/27/19 17:30 17:30 CSF Herpes II IgG Ab Cancelled EBV EA IgG Ab Interp Cancelled HSV I IgG Ab (Blot) Cancelled HSV I DNA Quant (PCR) Cancelled HSV II DNA Quant (PCR) Cancelled Problem List - Problems (1) Hypokalemia Code(s): E87.6 - HYPOKALEMIA (2) Respiratory failure Code(s): J96.90 - RESPIRATORY FAILURE, UNSP, UNSP W HYPOXIA OR HYPERCAPNIA (3) Status epilepticus Code(s): G40.901 - EPILEPSY, UNSP, NOT INTRACTABLE, WITH STATUS EPILEPTICUS Assessment/Plan ASSESS: s/p Status Epilepticus s/p Acute Respiratory Failure UTI Bacteremia Sepsis +Troponins likely Demand Ischemia Recent COVID19 Bipolar Disorder Mental Retardation DM h/o TBI h/o DVT Anemia PLAN: - AEDs per neuro - Off ABX - VTE prophylaxis - enteral feeds : (?) PEG - GI prophylaxis Dr Poe
--- NOTE | 2020-01-09 10:55 | PN ---
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, Physician Chief Complaint: Status Epilepticus Acute Respiratory Failure UTI Bacteremia Sepsis +Troponins likely Demand Ischemia Recent COVID19 Bipolar Disorder Mental Retardation DM h/o TBI h/o DVT Anemia History of Present Illness: NAD, no changes in status Opens her eyes to verbal response Is able to tall me her name, her uncle's name. She is able to stick her tongue out for me upon command. Pt refused to eat for Speech pathologist later yesterday - Current Medication List Current Medications: Active Medications Ascorbic Acid (Vitamin C Oral Solution -) 500 mg NGT BID [facility] Last Admin: 01/09/20 09:39 Dose: 500 mg Documented by: Enoxaparin Sodium (Lovenox -) 100 mg SQ BID [facility] Last Admin: 01/09/20 09:38 Dose: 100 mg Documented by: Lactobacillus Acidophilus (Bacid -) 1 tab NGT DAILY [facility] Last Admin: 01/09/20 09:39 Dose: 1 tab Documented by: Levetiracetam (Keppra Oral Solution -) 1,500 mg NGT BID [facility] Last Admin: 01/09/20 09:40 Dose: 1,500 mg Documented by: Multivitamins/Minerals (Certavite-Antioxidant Liquid) 15 ml NGT DAILY [facility] Last Admin: 01/09/20 09:39 Dose: 15 ml Documented by: Nystatin (Mycostatin Cream -) 1 applic TP DAILY [facility] Last Admin: 01/09/20 09:40 Dose: 1 applic Documented by: Pantoprazole Sodium (Protonix Iv) 40 mg IVPUSH DAILY [facility] Last Admin: 01/09/20 09:38 Dose: 40 mg Documented by: Potassium Chloride (Potassium Chloride Oral Liquid) 40 meq PO DAILY [facility] Last Admin: 01/09/20 09:41 Dose: 40 meq Documented by: Valproate Sodium (Depakene -) 1,500 mg NGT TID [facility] Last Admin: 01/09/20 05:21 Dose: 1,500 mg Documented by: - Objective Vital Signs: Vital Signs Temperature 97.9 F 01/09/20 09:44 Pulse Rate 104 H 01/09/20 09:44 Respiratory Rate 18 01/09/20 09:44 Blood Pressure 151/86 01/09/20 09:44 O2 Sat by Pulse Oximetry (%) 97 01/08/20 20:54 Constitutional: Yes: Well Nourished, No Distress, Calm Cardiovascular: Yes: Regular Rate and Rhythm Respiratory: Yes: Regular, Diminished Gastrointestinal: Yes: Normal Bowel Sounds, Soft, Abdomen, Obese Genitourinary: Yes: Incontinence Musculoskeletal: Yes: Muscle Weakness Edema: No Peripheral Pulses WNL: Yes Neurological: Yes: Alert, Pre-Existing Deficit Psychiatric: Yes: Alert Labs: CBC, BMP 01/06/20 05:20 01/06/20 05:20 INR, PTT INR 1.41 (0.83-1.09) H 12/26/19 01:16 Problem List - Problems (1) Hypokalemia Assessment/Plan: -Resolved Problems reviewed: Yes Code(s): E87.6 - HYPOKALEMIA (2) Respiratory failure Assessment/Plan: -resolved -Pulmonary on board -On Nasal O2 to keep SpO2>90% Problems reviewed: Yes Code(s): J96.90 - RESPIRATORY FAILURE, UNSP, UNSP W HYPOXIA OR HYPERCAPNIA (3) Status epilepticus Assessment/Plan: -Neurology on board -MRI brain unremarkable -CSF negative for any acute etiology -Continue Depakote- change to NGT -Continue Keppra- change to NGT -CT head showed right frontal lobe encephalomalacia Problems reviewed: Yes Code(s): G40.901 - EPILEPSY, UNSP, NOT INTRACTABLE, WITH STATUS EPILEPTICUS (4) Pneumonia Assessment/Plan: -Likely aspiration -Speech pathology on board -Pt refusing to eat at this time -ID on board -Off abx -Afebrile -No leukocytosis -Continue NGT feeds for now -Left message for pt's Uncle/ NOK Lars Busby to call back to discuss plan of care. Problems reviewed: Yes Code(s): J18.9 - PNEUMONIA, UNSPECIFIED ORGANISM (5) UTI (urinary tract infection) Assessment/Plan: -resolved -treated with IV abx Problems reviewed: Yes Code(s): N39.0 - URINARY TRACT INFECTION, SITE NOT SPECIFIED (6) Metabolic encephalopathy Assessment/Plan: -resolved Problems reviewed: Yes Code(s): G93.41 - METABOLIC ENCEPHALOPATHY (7) Anemia Assessment/Plan: -Iron, B12 unremarkable -stool OB negative -Thyroid profile normal -monitor trend Problems reviewed: Yes Code(s): D64.9 - ANEMIA, UNSPECIFIED (8) Diabetes Assessment/Plan: -A1c at 5.1 -D/C BGM AC HS -D/C ISS Problems reviewed: Yes Code(s): E11.9 - TYPE 2 DIABETES MELLITUS WITHOUT COMPLICATIONS (9) Abdominal pain Assessment/Plan: -abd resolved -U/S abd: cholelithiasis without obstruction, left renal mass -CT abd: BLL consolidation (likely atelectasis) No S&S of acute pneumonia Problems reviewed: Yes Code(s): R10.9 - UNSPECIFIED ABDOMINAL PAIN (10) Failure to thrive Assessment/Plan: -Pt's mother is disabled with MS and doesn't poses mental capacity to make decisions. Pt's father is not in the picture as per uncle and grandmother. -Speech pathology on board -Verbal consent received from pt's uncle Lars Busby and Grandmother Erendira Busby PEG insertion through IR. -Spoke to Angélica Zapata and William Guzman RN from [facility] who stated that Uncle Lars has always been the decision maker even though there has never been any legal document from the court. They want to try to come in to see the patient and try to feed her. I explained that even if she does eat for them, we still need to do MBS to r/o any aspiration and pt will likely not be able to maintain her nutritional intake. It would be advisable to get PEG right now, which can later be taken out once patient's PO nutritional status improves. Problems reviewed: Yes Code(s): [id number] - (11) History of DVT (deep vein thrombosis) Assessment/Plan: -There's no record of when did pt have DVT's. Pt's uncle doesn't know when it was. -Lovenox 100 mg BID Problems reviewed: Yes Code(s): Z86.718 - PERSONAL HISTORY OF OTHER VENOUS THROMBOSIS AND EMBOLISM Assessment/Plan See problem list
[2020-01-09 11:07] LABS: MUMPS AB IGG CSF < 5.0 AU/mL (<=10.9)
[2020-01-09 11:52] LABS: BASO % 1.1 % (0-2.0); EOS % 1.2 % (0-4.5); HEMATOCRIT 28.1 % (32.4-45.2); HEMOGLOBIN 9.1 GM/dL (10.7-15.3); MCH 30.7 pg (25.7-33.7); MCHC 32.4 g/dl (32.0-36.0); MEAN CELL VOLUME 94.8 fl (80-96); MEAN PLT VOLUME 7.9 fl (7.5-11.1); MONO % 12.1 % (3.8-10.2); NEUT % 58.6 % (42.8-82.8); PLATELET COUNT 371 K/MM3 (134-434); RBC 2.97 M/mm3 (3.60-5.2); RDW 15.9 % (11.6-15.6); WHITE BLOOD COUNT 12.9 K/mm3 (4.0-10.0)
[2020-01-09 12:29] LABS: ALBUMIN 2.8 g/dl (3.4-5.0); BILIRUBIN,TOTAL 0.2 mg/dL (0.2-1); BLOOD UREA NITROGEN 18.9 mg/dL (7-18); CALCIUM 10.4 mg/dL (8.5-10.1)
[2020-01-09 12:32] LABS: CREATININE 0.6 mg/dL (0.55-1.3)
[2020-01-09 12:48] LABS: ANISOCYTOSIS 2+; MACROCYTOSIS 0; PLATELET ESTIMATE NORMAL
--- NOTE | 2020-01-09 14:48 | PN ---
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, COUNTER ROLLER - Note 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: 34 yo female seen at bedside as a follow up for dysphagia evaluation with recom mendations for NPO secondary to aspiration PNA? and refusal of all po trials. Chart reviewed. Pt continues to refuse all po trials with this clinician. Recommendations: continue NPO status at this time until MBS can be completed. Consider alternative method of providing hydration, nutrition and medications. Results given to retail assistant and PCP via chart.
[2020-01-09] MEDS: AMINO ACIDS/PROTEIN HYDROLYS 30 ML LIQUID.PKT NGT SCH (16:57)
[2020-01-09] MEDS ORDERED: PT OWN MED DRAWER 7, Y5N ONE (22:06)
[2020-01-10] MEDS: VALPROATE SODIUM 250 MG/5 ML UNIT DOSE CUP NGT SCH ×3 (05:17→22:02)
[2020-01-10] MEDS: AMINO ACIDS/PROTEIN HYDROLYS 30 ML LIQUID.PKT NGT SCH ×2 (08:00→17:01)
[2020-01-10] MEDS ORDERED: PT OWN MED DRAWER 7, Y5N ONE ×4 (10:35→22:04)
[2020-01-10] MEDS: PANTOPRAZOLE SODIUM 40 MG VIAL IVPUSH SCH (10:42)
[2020-01-10] MEDS: LACTOBACILLUS ACIDOPHILUS 1 TABLET NGT SCH (10:42)
[2020-01-10] MEDS: ASCORBIC ACID 500 MG/5 ML NGT SCH ×2 (10:43→22:47)
[2020-01-10] MEDS: NYSTATIN 100,000 UNIT/GM TOPICAL CREAM 15 GM TUBE TP SCH (10:43)
[2020-01-10] MEDS: POTASSIUM CHLORIDE ORAL LIQUID 20 MEQ/15 ML PO SCH (10:43)
[2020-01-10] MEDS: ENOXAPARIN NA (PORCINE) 100 MG/1 ML DISP.SYRIN SQ SCH ×2 (10:43→22:02)
[2020-01-10] MEDS: levETIRAcetam 500 MG/5 ML ORAL SOLUTION (UNIT-DOSE CUPS) NGT SCH ×2 (10:44→22:03)
[2020-01-10] MEDS: MULTIVIT-MINERALS ORAL LIQUID NGT SCH (10:45)
--- NOTE | 2020-01-10 10:52 | PN ---
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, Physician Chief Complaint: Status Epilepticus Acute Respiratory Failure UTI Bacteremia Sepsis +Troponins likely Demand Ischemia Recent COVID19 Bipolar Disorder Mental Retardation DM h/o TBI h/o DVT Anemia History of Present Illness: NAD,just returned from IR s/p PEG insertion - Current Medication List Current Medications: Active Medications Amino Acids (Prosource No Carb Liquid Pkt) 30 ml NGT BID@0800,1730 [facility] Last Admin: 01/10/20 08:00 Dose: Not Given Documented by: Ascorbic Acid (Vitamin C Oral Solution -) 500 mg NGT BID [facility] Last Admin: 01/10/20 10:43 Dose: 500 mg Documented by: Enoxaparin Sodium (Lovenox -) 100 mg SQ BID [facility] Last Admin: 01/10/20 10:43 Dose: Not Given Documented by: Lactobacillus Acidophilus (Bacid -) 1 tab NGT DAILY [facility] Last Admin: 01/10/20 10:42 Dose: 1 tab Documented by: Levetiracetam (Keppra Oral Solution -) 1,500 mg NGT BID [facility] Last Admin: 01/10/20 10:44 Dose: 1,500 mg Documented by: Multivitamins/Minerals (Certavite-Antioxidant Liquid) 15 ml NGT DAILY [facility] Last Admin: 01/09/20 09:39 Dose: 15 ml Documented by: Nystatin (Mycostatin Cream -) 1 applic TP DAILY [facility] Last Admin: 01/10/20 10:43 Dose: 1 applic Documented by: Pantoprazole Sodium (Protonix Iv) 40 mg IVPUSH DAILY [facility] Last Admin: 01/10/20 10:42 Dose: 40 mg Documented by: Potassium Chloride (Potassium Chloride Oral Liquid) 40 meq PO DAILY [facility] Last Admin: 01/10/20 10:43 Dose: 40 meq Documented by: Valproate Sodium (Depakene -) 1,500 mg NGT TID [facility] Last Admin: 01/10/20 05:17 Dose: 1,500 mg Documented by: - Objective Vital Signs: Vital Signs Temperature 98.6 F 01/10/20 05:09 Pulse Rate 107 H 01/10/20 09:58 Respiratory Rate 15 01/10/20 09:58 Blood Pressure 157/88 01/10/20 09:58 O2 Sat by Pulse Oximetry (%) 97 01/10/20 09:58 Constitutional: Yes: Well Nourished, No Distress, Calm Cardiovascular: Yes: Regular Rate and Rhythm Respiratory: Yes: Regular, Diminished Gastrointestinal: Yes: Normal Bowel Sounds, Soft, Other (PEG status) Genitourinary: Yes: Incontinence Musculoskeletal: Yes: Muscle Weakness Extremities: Yes: Other (generalized atrophy) Edema: No Peripheral Pulses WNL: Yes Neurological: Yes: Alert, Pre-Existing Deficit Psychiatric: Yes: Alert Labs: CBC, BMP 01/09/20 11:06 01/09/20 10:19 INR, PTT INR 1.41 (0.83-1.09) H 12/26/19 01:16 Problem List - Problems (1) Anemia Assessment/Plan: -Iron, B12 unremarkable -stool OB negative -Thyroid profile normal -monitor trend Problems reviewed: Yes Code(s): D64.9 - ANEMIA, UNSPECIFIED (2) Diabetes Assessment/Plan: -A1c at 5.1 -D/C BGM AC HS -D/C ISS Problems reviewed: Yes Code(s): E11.9 - TYPE 2 DIABETES MELLITUS WITHOUT COMPLICATIONS (3) Dysphagia Assessment/Plan: -Speech pathology on board Problems reviewed: Yes Code(s): R13.10 - DYSPHAGIA, UNSPECIFIED (4) Failure to thrive Assessment/Plan: -S/P PEG insertion -Hold feeds x 24 hours -Start tube feeding in AM after KUB results in AM -Speech pathology on board -MBS in future if pt amenable to PO intake Problems reviewed: Yes Code(s): [id number] - (5) History of DVT (deep vein thrombosis) Assessment/Plan: -There's no record of when did pt have DVT's. Pt's uncle doesn't know when it was. -Lovenox 100 mg BID Problems reviewed: Yes Code(s): Z86.718 - PERSONAL HISTORY OF OTHER VENOUS THROMBOSIS AND EMBOLISM (6) Metabolic encephalopathy Assessment/Plan: -resolved Problems reviewed: Yes Code(s): G93.41 - METABOLIC ENCEPHALOPATHY (7) Status epilepticus Assessment/Plan: -Neurology on board -MRI brain unremarkable -CSF negative for any acute etiology -Continue Depakote- change to NGT -Continue Keppra- change to NGT -CT head showed right frontal lobe encephalomalacia Problems reviewed: Yes Code(s): G40.901 - EPILEPSY, UNSP, NOT INTRACTABLE, WITH STATUS EPILEPTICUS Assessment/Plan See problem list Left msg for Uncle Lars to call back to update pt status.
--- NOTE | 2020-01-10 10:55 | PN ---
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, BINDER LOCKSTITCH - Note 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: Selected Entries 01/10/20 01/10/20 01/10/20 05:09 09:19 09:29 Breakfast Temperature 98.6 F Pulse Rate 108 H 105 H Pulse Rate [ 105 H Left Lower Arm] Blood Pressure 133/82 131/84 Blood Pressure 132/90 [Left Lower Arm ] 01/10/20 01/10/20 01/10/20 09:39 09:49 09:58 Breakfast NPO Temperature Pulse Rate 107 H Pulse Rate [ 105 H 103 H Left Lower Arm] Blood Pressure 157/88 Blood Pressure 144/103 H 157/88 [Left Lower Arm ] Laboratory Tests 01/06/20 01/09/20 05:20 11:06 WBC 8.8 12.9 H Pt continued to refuse PO trials, likely will not accept enough PO for sufficient nutrition. Additionally, drooling indicative of dysphagia with impaired swallow initiation and saliva management. PEG insertion via IR MBS as in pt or upon d/c, once pt begins to accept/show interest in po trials, with goal to wean from TF in future as swallowing improves.
[2020-01-10] MEDS ORDERED: ACETAMINOPHEN 500 MG TABLET (FP) PO PRN (10:57)
[2020-01-10] MEDS ORDERED: traMADol HCL 50 MG TABLET PO PRN (11:00)
--- NOTE | 2020-01-10 12:05 | PN ---
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 (short form) - Note 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: PULMONARY NO CHANGE,AWAKE,EYES OPEN,NOT RESPONSIVE S/P PEG THIS AM VSS/AFEBRILE Constitutional: Yes: Well Nourished, Calm Eyes: Yes: WNL HENT: Yes: WNL Neck: Yes: WNL Cardiovascular: Yes: Regular Rate and Rhythm, S1, S2 Respiratory: Yes: CTA Bilaterally Gastrointestinal: Yes: Normal Bowel Sounds, Soft Extremities: Yes: WNL Edema: No Labs/images/notes/meds/micro reviewed ASSESS: s/p Status Epilepticus s/p Acute Respiratory Failure UTI Bacteremia Sepsis +Troponins likely Demand Ischemia Recent COVID19 Bipolar Disorder Mental Retardation DM h/o TBI h/o DVT Anemia PLAN: - Replete electrolytes prn - Cont anticoagulation - enteral feeds - DVT/GI prophylaxis Hollis HERNANDEZ MD
[2020-01-11] MEDS: VALPROATE SODIUM 250 MG/5 ML UNIT DOSE CUP NGT SCH ×3 (05:00→22:47)
[2020-01-11] MEDS: LACTOBACILLUS ACIDOPHILUS 1 TABLET NGT SCH (10:19)
[2020-01-11] MEDS: ENOXAPARIN NA (PORCINE) 100 MG/1 ML DISP.SYRIN SQ SCH ×2 (10:19→22:47)
[2020-01-11] MEDS: AMINO ACIDS/PROTEIN HYDROLYS 30 ML LIQUID.PKT NGT SCH ×2 (10:19→17:40)
[2020-01-11] MEDS: PANTOPRAZOLE SODIUM 40 MG VIAL IVPUSH SCH (10:19)
[2020-01-11] MEDS: POTASSIUM CHLORIDE ORAL LIQUID 20 MEQ/15 ML PO SCH (10:19)
[2020-01-11] MEDS: MULTIVIT-MINERALS ORAL LIQUID NGT SCH (10:20)
[2020-01-11] MEDS: levETIRAcetam 500 MG/5 ML ORAL SOLUTION (UNIT-DOSE CUPS) NGT SCH ×2 (10:21→22:48)
[2020-01-11] MEDS: ASCORBIC ACID 500 MG/5 ML NGT SCH ×2 (10:22→22:48)
[2020-01-11] MEDS: NYSTATIN 100,000 UNIT/GM TOPICAL CREAM 15 GM TUBE TP SCH (11:23)
--- NOTE | 2020-01-11 11:30 | PN ---
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, Physician Chief Complaint: S/P GTUBE PLACEMENT AWAKE NAD - Current Medication List Current Medications: Active Medications Acetaminophen (Tylenol -) 1,000 mg PO Q6H PRN PRN Reason: PAIN LEVEL 1-5 Amino Acids (Prosource No Carb Liquid Pkt) 30 ml NGT BID@0800,1730 [facility] Last Admin: 01/11/20 10:19 Dose: 30 ml Documented by: Ascorbic Acid (Vitamin C Oral Solution -) 500 mg NGT BID [facility] Last Admin: 01/11/20 10:22 Dose: 500 mg Documented by: Enoxaparin Sodium (Lovenox -) 100 mg SQ BID [facility] Last Admin: 01/11/20 10:19 Dose: 100 mg Documented by: Lactobacillus Acidophilus (Bacid -) 1 tab NGT DAILY [facility] Last Admin: 01/11/20 10:19 Dose: 1 tab Documented by: Levetiracetam (Keppra Oral Solution -) 1,500 mg NGT BID [facility] Last Admin: 01/11/20 10:21 Dose: 1,500 mg Documented by: Multivitamins/Minerals (Certavite-Antioxidant Liquid) 15 ml NGT DAILY [facility] Last Admin: 01/11/20 10:20 Dose: 15 ml Documented by: Nystatin (Mycostatin Cream -) 1 applic TP DAILY [facility] Last Admin: 01/11/20 11:23 Dose: 1 applic Documented by: Pantoprazole Sodium (Protonix Iv) 40 mg IVPUSH DAILY [facility] Last Admin: 01/11/20 10:19 Dose: 40 mg Documented by: Potassium Chloride (Potassium Chloride Oral Liquid) 40 meq PO DAILY [facility] Last Admin: 01/11/20 10:19 Dose: 40 meq Documented by: Tramadol HCl (Ultram -) 50 mg PO Q6H PRN PRN Reason: PAIN LEVEL 6-10 Valproate Sodium (Depakene -) 1,500 mg NGT TID [facility] Last Admin: 01/11/20 05:00 Dose: 1,500 mg Documented by: - Objective Vital Signs: Vital Signs Temperature 98.7 F 01/10/20 22:00 Pulse Rate 120 H 01/10/20 22:00 Respiratory Rate 20 01/10/20 22:00 Blood Pressure 145/88 01/10/20 22:00 O2 Sat by Pulse Oximetry (%) 96 01/10/20 21:00 Constitutional: Yes: Other Cardiovascular: Yes: Regular Rate and Rhythm Respiratory: Yes: Diminished, On Nasal O2 Gastrointestinal: Yes: Soft Musculoskeletal: Yes: Muscle Weakness Labs: CBC, BMP 01/09/20 11:06 01/09/20 10:19 INR, PTT INR 1.41 (0.83-1.09) H 12/26/19 01:16 Problem List - Problems (1) Abdominal pain Code(s): R10.9 - UNSPECIFIED ABDOMINAL PAIN (2) Anemia Code(s): D64.9 - ANEMIA, UNSPECIFIED (3) Diabetes Code(s): E11.9 - TYPE 2 DIABETES MELLITUS WITHOUT COMPLICATIONS (4) Dysphagia Code(s): R13.10 - DYSPHAGIA, UNSPECIFIED (5) Failure to thrive Code(s): DYY7121 - (6) History of DVT (deep vein thrombosis) Code(s): Z86.718 - PERSONAL HISTORY OF OTHER VENOUS THROMBOSIS AND EMBOLISM (7) History of gastrostomy tube placement Code(s): XGJ8370 - (8) Metabolic encephalopathy Code(s): G93.41 - METABOLIC ENCEPHALOPATHY (9) Pneumonia Code(s): J18.9 - PNEUMONIA, UNSPECIFIED ORGANISM Assessment/Plan AWAITING KUB RESULTS PRIOR TO STARTING FEEDS IVF PAIN CONTROL DVT PROPHYLAXIS CHECKING LABS
--- NOTE | 2020-01-11 11:36 | PN ---
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 (short form) - Note 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: PULMONARY NO CHANGE,AWAKE,EYES OPEN G-TUBE IN PLACE VSS/AFEBRILE Constitutional: Yes: Well Nourished, Calm Eyes: Yes: WNL HENT: Yes: WNL Neck: Yes: WNL Cardiovascular: Yes: Regular Rate and Rhythm, S1, S2 Respiratory: Yes: CTA Bilaterally Gastrointestinal: Yes: Normal Bowel Sounds, Soft Extremities: Yes: WNL Edema: No Labs/images/notes/meds/micro reviewed ASSESS: s/p Status Epilepticus s/p Acute Respiratory Failure UTI Bacteremia Sepsis +Troponins likely Demand Ischemia Recent COVID19 Bipolar Disorder Mental Retardation DM h/o TBI h/o DVT Anemia PLAN: - Replete electrolytes prn - Cont anticoagulation - enteral feeds - DVT/GI prophylaxis Hollis HERNANDEZ MD
[2020-01-12] MEDS: VALPROATE SODIUM 250 MG/5 ML UNIT DOSE CUP NGT SCH ×3 (05:38→22:02)
[2020-01-12] MEDS ORDERED: PT OWN MED DRAWER 7, Y5N ONE ×2 (09:33→21:59)
[2020-01-12] MEDS: POTASSIUM CHLORIDE ORAL LIQUID 20 MEQ/15 ML PO SCH (09:35)
[2020-01-12] MEDS: ENOXAPARIN NA (PORCINE) 100 MG/1 ML DISP.SYRIN SQ SCH ×2 (09:35→22:05)
[2020-01-12] MEDS: AMINO ACIDS/PROTEIN HYDROLYS 30 ML LIQUID.PKT NGT SCH ×2 (09:35→17:03)
[2020-01-12] MEDS: PANTOPRAZOLE SODIUM 40 MG VIAL IVPUSH SCH (09:35)
[2020-01-12] MEDS: MULTIVIT-MINERALS ORAL LIQUID NGT SCH (09:36)
[2020-01-12] MEDS: levETIRAcetam 500 MG/5 ML ORAL SOLUTION (UNIT-DOSE CUPS) NGT SCH ×2 (09:36→22:03)
[2020-01-12] MEDS: ASCORBIC ACID 500 MG/5 ML NGT SCH ×2 (09:36→22:03)
[2020-01-12] MEDS: LACTOBACILLUS ACIDOPHILUS 1 TABLET NGT SCH (09:37)
[2020-01-12] MEDS: NYSTATIN 100,000 UNIT/GM TOPICAL CREAM 15 GM TUBE TP SCH (10:24)
--- NOTE | 2020-01-12 11:20 | PN ---
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, Physician Chief Complaint: TOLERATING FEEDS AT 20CC/HR NO FEVER OR CHILLS - Current Medication List Current Medications: Active Medications Acetaminophen (Tylenol -) 1,000 mg PO Q6H PRN PRN Reason: PAIN LEVEL 1-5 Amino Acids (Prosource No Carb Liquid Pkt) 30 ml NGT BID@0800,1730 [facility] Last Admin: 01/12/20 09:35 Dose: 30 ml Documented by: Ascorbic Acid (Vitamin C Oral Solution -) 500 mg NGT BID [facility] Last Admin: 01/12/20 09:36 Dose: 500 mg Documented by: Enoxaparin Sodium (Lovenox -) 100 mg SQ BID [facility] Last Admin: 01/12/20 09:35 Dose: 100 mg Documented by: Lactobacillus Acidophilus (Bacid -) 1 tab NGT DAILY [facility] Last Admin: 01/12/20 09:37 Dose: 1 tab Documented by: Levetiracetam (Keppra Oral Solution -) 1,500 mg NGT BID [facility] Last Admin: 01/12/20 09:36 Dose: 1,500 mg Documented by: Multivitamins/Minerals (Certavite-Antioxidant Liquid) 15 ml NGT DAILY [facility] Last Admin: 01/12/20 09:36 Dose: 15 ml Documented by: Nystatin (Mycostatin Cream -) 1 applic TP DAILY [facility] Last Admin: 01/12/20 10:24 Dose: 1 applic Documented by: Pantoprazole Sodium (Protonix Iv) 40 mg IVPUSH DAILY [facility] Last Admin: 01/12/20 09:35 Dose: 40 mg Documented by: Potassium Chloride (Potassium Chloride Oral Liquid) 40 meq PO DAILY [facility] Last Admin: 01/12/20 09:35 Dose: 40 meq Documented by: Tramadol HCl (Ultram -) 50 mg PO Q6H PRN PRN Reason: PAIN LEVEL 6-10 Valproate Sodium (Depakene -) 1,500 mg NGT TID [facility] Last Admin: 01/12/20 05:38 Dose: 1,500 mg Documented by: - Objective Vital Signs: Vital Signs Temperature 98.8 F 01/12/20 10:00 Pulse Rate 99 H 01/12/20 10:00 Respiratory Rate 19 01/12/20 10:00 Blood Pressure 126/66 01/12/20 10:00 O2 Sat by Pulse Oximetry (%) 97 01/12/20 09:00 Constitutional: Yes: No Distress Cardiovascular: Yes: Regular Rate and Rhythm Respiratory: Yes: Diminished, On Nasal O2 Gastrointestinal: Yes: Soft, Other (GTUBE FUNCTIONING) Genitourinary: Yes: Incontinence Musculoskeletal: Yes: Muscle Weakness Edema: Yes Integumentary: Yes: Erythema Wound/Incision: Yes: Dressing Dry and Intact Neurological: Yes: Pre-Existing Deficit, Weakness ...Motor Strength: LLE, RLE Labs: CBC, BMP 01/09/20 11:06 01/09/20 10:19 INR, PTT INR 1.41 (0.83-1.09) H 12/26/19 01:16 Problem List - Problems (1) Abdominal pain Code(s): R10.9 - UNSPECIFIED ABDOMINAL PAIN (2) Anemia Code(s): D64.9 - ANEMIA, UNSPECIFIED (3) Diabetes Code(s): E11.9 - TYPE 2 DIABETES MELLITUS WITHOUT COMPLICATIONS (4) Dysphagia Code(s): R13.10 - DYSPHAGIA, UNSPECIFIED (5) Failure to thrive Code(s): [id number] - (6) History of DVT (deep vein thrombosis) Code(s): Z86.718 - PERSONAL HISTORY OF OTHER VENOUS THROMBOSIS AND EMBOLISM (7) History of gastrostomy tube placement Code(s): JAI4257 - (8) Metabolic encephalopathy Code(s): G93.41 - METABOLIC ENCEPHALOPATHY (9) Pneumonia Code(s): J18.9 - PNEUMONIA, UNSPECIFIED ORGANISM Assessment/Plan GTUBE FUNCTIONING INCREASE TO 30CC/HR DC PLANNING TOMORROW CHECK LABS
--- NOTE | 2020-01-12 11:57 | PN ---
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 (short form) - Note 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: PULMONARY NO CHANGE,AWAKE,EYES OPEN G-TUBE IN PLACE/FEEDING STARTED VSS/AFEBRILE Constitutional: Yes: Well Nourished, Calm Eyes: Yes: WNL HENT: Yes: WNL Neck: Yes: WNL Cardiovascular: Yes: Regular Rate and Rhythm, S1, S2 Respiratory: Yes: CTA Bilaterally Gastrointestinal: Yes: Normal Bowel Sounds, Soft Extremities: Yes: WNL Edema: No Labs/images/notes/meds/micro reviewed ASSESS: s/p Status Epilepticus s/p Acute Respiratory Failure UTI Bacteremia Sepsis +Troponins likely Demand Ischemia Recent COVID19 Bipolar Disorder Mental Retardation DM h/o TBI h/o DVT Anemia PLAN: - Replete electrolytes prn - Cont anticoagulation - enteral feeds - DVT/GI prophylaxis Hollis HERNANDEZ MD
[2020-01-13] MEDS: VALPROATE SODIUM 250 MG/5 ML UNIT DOSE CUP NGT SCH ×3 (05:17→20:59)
--- NOTE | 2020-01-13 10:07 | CON.HO ---
Consult - text type - Consultation Consultation Note: Eyhtropoietin level 69.9. iron studies are not compatible with iron deficiency. Hb is 9.1. The picture looks like chronic disease but HB is 9.1, so can continue to monitor and consider Procrit if drops to below 8, or deveops anemia related symptoms.
[2020-01-13] MEDS: levETIRAcetam 500 MG/5 ML ORAL SOLUTION (UNIT-DOSE CUPS) NGT SCH ×2 (10:10→21:00)
[2020-01-13] MEDS: MULTIVIT-MINERALS ORAL LIQUID NGT SCH (10:11)
[2020-01-13] MEDS: NYSTATIN 100,000 UNIT/GM TOPICAL CREAM 15 GM TUBE TP SCH (10:11)
--- NOTE | 2020-01-13 10:11 | PN.GI ---
GI 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 Subjective: G NOte: Asked to followup to adjust feedings. IR G tube placed on 01/09 - Objective Vital Signs: Vital Signs Temperature 97.5 F L 01/13/20 05:58 Pulse Rate 95 H 01/13/20 05:58 Respiratory Rate 20 01/13/20 05:58 Blood Pressure 117/56 L 01/13/20 05:58 O2 Sat by Pulse Oximetry (%) 97 01/12/20 20:46 Selected Entries 01/12/20 01/12/20 01/12/20 13:58 18:00 22:00 Temperature 98.1 F 98.4 F 98.3 F 01/13/20 05:58 Temperature 97.5 F L Laboratory Tests 12/26/19 12/27/19 01/03/20 01:10 17:30 06:10 Ferritin 135.0 CSF WBC 1 CSF Glucose 94 H CSF Total Protein 90 H Stool Occult Blood COVID-19 (ABBY) Not detected 01/05/20 13:15 Ferritin CSF WBC CSF Glucose CSF Total Protein Stool Occult Blood Negative COVID-19 (ABBY) Constitutional: No Distress Gastrointestinal Inspection: Yes: Other (G tube site had an inferior rim hematoma but no fluctuance. The area was cleansed with betadine and redressed.) ...Auscultate: Yes: Normoactive Bowel Sounds Labs: CBC, BMP 01/09/20 11:06 01/09/20 10:19 INR, PTT INR 1.41 (0.83-1.09) H 12/26/19 01:16 Assessment/Plan Impression: - G tube functioning well but will start Kefzol to prevent infection developing within the hematoma at the site. I will allow feedings to be increased to 45cc/hr - Stool for occult blood negative Plan: -- Increase feedings to 45 cc/hr -- Kefzol ordered Problem List - Problems (1) Dysphagia Code(s): R13.10 - DYSPHAGIA, UNSPECIFIED (2) Abdominal pain Code(s): R10.9 - UNSPECIFIED ABDOMINAL PAIN (3) History of gastrostomy tube placement Code(s): [id number] - (4) Diabetes Code(s): E11.9 - TYPE 2 DIABETES MELLITUS WITHOUT COMPLICATIONS (5) Metabolic encephalopathy Code(s): G93.41 - METABOLIC ENCEPHALOPATHY (6) Status epilepticus Code(s): G40.901 - EPILEPSY, UNSP, NOT INTRACTABLE, WITH STATUS EPILEPTICUS (7) Anemia Code(s): D64.9 - ANEMIA, UNSPECIFIED
--- NOTE | 2020-01-13 10:12 | PN ---
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 (short form) - Note 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: PULMONARY Pt nonverbal. No fevers recorded. Vital Signs Period Temp Pulse Resp BP Sys/Gama Pulse Ox Last 24 Hr 97.5 F-98.4 F 95-108 20-20 115-128/56-80 97 Gen: NAD at rest Heart: RRR Lung: decreased breath sounds at the bases Abd: soft, nontender Ext: no edema CBC, BMP 01/09/20 11:06 01/09/20 10:19 Active Medications Acetaminophen (Tylenol -) 1,000 mg PO Q6H PRN PRN Reason: PAIN LEVEL 1-5 Amino Acids (Prosource No Carb Liquid Pkt) 30 ml NGT BID@0800,1730 [facility] Last Admin: 01/12/20 17:03 Dose: 30 ml Documented by: Ascorbic Acid (Vitamin C Oral Solution -) 500 mg NGT BID [facility] Last Admin: 01/12/20 22:03 Dose: 500 mg Documented by: Enoxaparin Sodium (Lovenox -) 100 mg SQ BID [facility] Last Admin: 01/12/20 22:05 Dose: 100 mg Documented by: Lactobacillus Acidophilus (Bacid -) 1 tab NGT DAILY [facility] Last Admin: 01/12/20 09:37 Dose: 1 tab Documented by: Levetiracetam (Keppra Oral Solution -) 1,500 mg NGT BID [facility] Last Admin: 01/12/20 22:03 Dose: 1,500 mg Documented by: Multivitamins/Minerals (Certavite-Antioxidant Liquid) 15 ml NGT DAILY [facility] Last Admin: 01/12/20 09:36 Dose: 15 ml Documented by: Nystatin (Mycostatin Cream -) 1 applic TP DAILY [facility] Last Admin: 01/12/20 10:24 Dose: 1 applic Documented by: Pantoprazole Sodium (Protonix Iv) 40 mg IVPUSH DAILY [facility] Last Admin: 01/12/20 09:35 Dose: 40 mg Documented by: Potassium Chloride (Potassium Chloride Oral Liquid) 40 meq PO DAILY [facility] Last Admin: 01/12/20 09:35 Dose: 40 meq Documented by: Tramadol HCl (Ultram -) 50 mg PO Q6H PRN PRN Reason: PAIN LEVEL 6-10 Valproate Sodium (Depakene -) 1,500 mg NGT TID [facility] Last Admin: 01/13/20 05:17 Dose: 1,500 mg Documented by: A/P s/p Status Epilepticus s/p Acute Respiratory Failure UTI Bacteremia Sepsis +Troponins likely Demand Ischemia Recent COVID19 Bipolar Disorder Mental Retardation DM h/o TBI h/o DVT Anemia - continue antiepileptics - completed antibiotics - continue anticoagulation - enteral feeds
[2020-01-13] MEDS: AMINO ACIDS/PROTEIN HYDROLYS 30 ML LIQUID.PKT NGT SCH ×2 (10:14→17:18)
[2020-01-13] MEDS: PANTOPRAZOLE SODIUM 40 MG VIAL IVPUSH SCH (10:14)
[2020-01-13] MEDS: POTASSIUM CHLORIDE ORAL LIQUID 20 MEQ/15 ML PO SCH (10:14)
[2020-01-13] MEDS: ASCORBIC ACID 500 MG/5 ML NGT SCH ×2 (10:15→21:01)
[2020-01-13] MEDS: ENOXAPARIN NA (PORCINE) 100 MG/1 ML DISP.SYRIN SQ SCH (10:15)
[2020-01-13] MEDS: LACTOBACILLUS ACIDOPHILUS 1 TABLET NGT SCH (10:15)
--- NOTE | 2020-01-13 11:24 | PN ---
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, Physician Chief Complaint: Status Epilepticus Acute Respiratory Failure UTI Bacteremia Sepsis +Troponins likely Demand Ischemia Recent COVID19 Bipolar Disorder Mental Retardation DM h/o TBI h/o DVT Anemia History of Present Illness: NAD, Opens eyes to verbal stimuli Nods head yes or no OT in the room for ROM Feels lethargic, upon questioning, states she didn't sleep well last night. Moving her arms to reach for headphones and TV. BL foot muscle strength + 4/5 Tolerating feeds via PEG - Current Medication List Current Medications: Active Medications Acetaminophen (Tylenol -) 1,000 mg PO Q6H PRN PRN Reason: PAIN LEVEL 1-5 Amino Acids (Prosource No Carb Liquid Pkt) 30 ml NGT BID@0800,1730 [facility] Last Admin: 01/13/20 10:14 Dose: 30 ml Documented by: Ascorbic Acid (Vitamin C Oral Solution -) 500 mg NGT BID [facility] Last Admin: 01/13/20 10:15 Dose: 500 mg Documented by: Enoxaparin Sodium (Lovenox -) 100 mg SQ BID [facility] Last Admin: 01/13/20 10:15 Dose: 100 mg Documented by: Cefazolin Sodium 1 gm/ (Dextrose) 50 mls @ 100 mls/hr IVPB Q8H-IV [facility] Lactobacillus Acidophilus (Bacid -) 1 tab NGT DAILY [facility] Last Admin: 01/13/20 10:15 Dose: 1 tab Documented by: Levetiracetam (Keppra Oral Solution -) 1,500 mg NGT BID [facility] Last Admin: 01/13/20 10:10 Dose: 1,500 mg Documented by: Multivitamins/Minerals (Certavite-Antioxidant Liquid) 15 ml NGT DAILY [facility] Last Admin: 01/13/20 10:11 Dose: 15 ml Documented by: Nystatin (Mycostatin Cream -) 1 applic TP DAILY [facility] Last Admin: 01/13/20 10:11 Dose: 1 applic Documented by: Pantoprazole Sodium (Protonix Iv) 40 mg IVPUSH DAILY [facility] Last Admin: 01/13/20 10:14 Dose: 40 mg Documented by: Potassium Chloride (Potassium Chloride Oral Liquid) 40 meq PO DAILY [facility] Last Admin: 01/13/20 10:14 Dose: 40 meq Documented by: Valproate Sodium (Depakene -) 1,500 mg NGT TID [facility] Last Admin: 01/13/20 05:17 Dose: 1,500 mg Documented by: - Objective Vital Signs: Vital Signs Temperature 97.5 F L 01/13/20 05:58 Pulse Rate 95 H 01/13/20 05:58 Respiratory Rate 01/13/20 05:58 Blood Pressure 117/56 L 01/13/20 05:58 O2 Sat by Pulse Oximetry (%) 97 01/12/20 20:46 Constitutional: Yes: Well Nourished, No Distress, Calm Cardiovascular: Yes: Regular Rate and Rhythm Respiratory: Yes: Regular, Diminished Gastrointestinal: Yes: Normal Bowel Sounds, Soft, Abdomen, Obese Genitourinary: Yes: Incontinence Musculoskeletal: Yes: Muscle Weakness Edema: No Peripheral Pulses WNL: Yes Neurological: Yes: Alert Psychiatric: Yes: Alert Labs: CBC, BMP 01/09/20 11:06 01/09/20 10:19 INR, PTT INR 1.41 (0.83-1.09) H 12/26/19 01:16 Problem List - Problems (1) Anemia Assessment/Plan: -Iron, B12 unremarkable -stool OB negative -Thyroid profile normal -Transfuse only if Hg <7.0 -Hematology consult appreciated -Elevated erythropoetin -Anemia of CD Problems reviewed: Yes Code(s): D64.9 - ANEMIA, UNSPECIFIED (2) Diabetes Assessment/Plan: -A1c at 5.1 -D/C BGM AC HS -D/C ISS Problems reviewed: Yes Code(s): E11.9 - TYPE 2 DIABETES MELLITUS WITHOUT COMPLICATIONS (3) Dysphagia Assessment/Plan: -Tolerating pEG feeding -Rehab for possible future PO trials Problems reviewed: Yes Code(s): R13.10 - DYSPHAGIA, UNSPECIFIED (4) Failure to thrive Assessment/Plan: -S/P PEG insertion -tolerating tube feeding -Speech pathology on board -MBS in future if pt amenable to PO intake Problems reviewed: Yes Code(s): [id number] - (5) History of DVT (deep vein thrombosis) Assessment/Plan: -There's no record of when did pt have DVT's. Pt's uncle doesn't know when it was. -D/C Lovenox -Restart Eliquis 2.5 mg po bid Problems reviewed: Yes Code(s): Z86.718 - PERSONAL HISTORY OF OTHER VENOUS THROMBOSIS AND EMBOLISM (6) Metabolic encephalopathy Assessment/Plan: -resolved Problems reviewed: Yes Code(s): G93.41 - METABOLIC ENCEPHALOPATHY (7) Status epilepticus Assessment/Plan: -Neurology on board -MRI brain unremarkable -CSF negative for any acute etiology -Continue Depakote- via PEG -Continue Keppra-via PEG -CT head showed right frontal lobe encephalomalacia Problems reviewed: Yes Code(s): G40.901 - EPILEPSY, UNSP, NOT INTRACTABLE, WITH STATUS EPILEPTICUS Assessment/Plan See problem list Repeat COVID 19 PCR in preparation for dc to [facility] Left msg for Uncle Lars to call back
[2020-01-13] MEDS: APIXABAN 2.5 MG TABLET PO SCH ×2 (13:09→21:01)
--- NOTE | 2020-01-13 13:40 | PN ---
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 Pt awake, alert, visually tracking, saliva pooling and bubbling out of her mouth, without generating swallow. Asked if we could try something to eat and she clearly provided adament headshake NO. Continue NPO, suction, PRN, mouth care TF For possible PO trials/MBS in future as pt improves.
[2020-01-13] MEDS ORDERED: DEXTROSE 5%-WATER - 50 ML IVPB ONE ×2 (16:49→23:57)
[2020-01-13] MEDS ORDERED: ceFAZolin SODIUM 1 GM VIAL ONE ×2 (16:49→23:57)
[2020-01-13] MEDS: CEFAZOLIN 1 GM in DEXTROSE 5%-WATER - 50 ML IVPB SCH (17:18)
[2020-01-14] MEDS: CEFAZOLIN 1 GM in DEXTROSE 5%-WATER - 50 ML IVPB SCH ×2 (02:48→09:47)
[2020-01-14] MEDS: VALPROATE SODIUM 250 MG/5 ML UNIT DOSE CUP NGT SCH ×2 (05:29→13:58)
[2020-01-14] MEDS ORDERED: ceFAZolin SODIUM 1 GM VIAL ONE (09:43)
[2020-01-14] MEDS ORDERED: DEXTROSE 5%-WATER - 50 ML IVPB ONE (09:43)
[2020-01-14] MEDS ORDERED: PT OWN MED DRAWER 7, Y5N ONE (09:45)
[2020-01-14] MEDS: AMINO ACIDS/PROTEIN HYDROLYS 30 ML LIQUID.PKT NGT SCH (09:48)
[2020-01-14] MEDS: LACTOBACILLUS ACIDOPHILUS 1 TABLET NGT SCH (09:48)
[2020-01-14] MEDS: APIXABAN 2.5 MG TABLET PO SCH (09:48)
[2020-01-14] MEDS: levETIRAcetam 500 MG/5 ML ORAL SOLUTION (UNIT-DOSE CUPS) NGT SCH (09:49)
[2020-01-14] MEDS: MULTIVIT-MINERALS ORAL LIQUID NGT SCH (09:49)
[2020-01-14] MEDS: ASCORBIC ACID 500 MG/5 ML NGT SCH (09:49)
[2020-01-14] MEDS: NYSTATIN 100,000 UNIT/GM TOPICAL CREAM 15 GM TUBE TP SCH (09:50)
[2020-01-14] MEDS: PANTOPRAZOLE SODIUM 40 MG VIAL IVPUSH SCH (09:50)
[2020-01-14] MEDS: POTASSIUM CHLORIDE ORAL LIQUID 20 MEQ/15 ML PO SCH (09:50)
--- NOTE | 2020-01-14 10:39 | PN ---
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 (short form) - Note 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: PULMONARY Pt awake, alert. No fevers recorded. Vital Signs Period Temp Pulse Resp BP Sys/Gama Pulse Ox Last 24 Hr 97.4 F-98.3 F 93-99 19-20 109-135/56-92 100 Gen: NAD at rest Heart: RRR Lung: decreased breath sounds at the bases Abd: soft, nontender Ext: no edema CBC, BMP 01/09/20 11:06 01/09/20 10:19 Active Medications Acetaminophen (Tylenol -) 1,000 mg PO Q6H PRN PRN Reason: PAIN LEVEL 1-5 Amino Acids (Prosource No Carb Liquid Pkt) 30 ml NGT BID@0800,1730 [facility] Last Admin: 01/14/20 09:48 Dose: 30 ml Documented by: Apixaban (Eliquis -) 2.5 mg PO BID [facility] Last Admin: 01/14/20 09:48 Dose: 2.5 mg Documented by: Ascorbic Acid (Vitamin C Oral Solution -) 500 mg NGT BID [facility] Last Admin: 01/14/20 09:49 Dose: 500 mg Documented by: Cefazolin Sodium 1 gm/ (Dextrose) 50 mls @ 100 mls/hr IVPB Q8H-IV [facility] Last Admin: 01/14/20 09:47 Dose: Not Given Documented by: Lactobacillus Acidophilus (Bacid -) 1 tab NGT DAILY [facility] Last Admin: 01/14/20 09:48 Dose: 1 tab Documented by: Levetiracetam (Keppra Oral Solution -) 1,500 mg NGT BID [facility] Last Admin: 01/14/20 09:49 Dose: 1,500 mg Documented by: Multivitamins/Minerals (Certavite-Antioxidant Liquid) 15 ml NGT DAILY [facility] Last Admin: 01/14/20 09:49 Dose: 15 ml Documented by: Nystatin (Mycostatin Cream -) 1 applic TP DAILY [facility] Last Admin: 01/14/20 09:50 Dose: 1 applic Documented by: Pantoprazole Sodium (Protonix Iv) 40 mg IVPUSH DAILY [facility] Last Admin: 01/14/20 09:50 Dose: Not Given Documented by: Potassium Chloride (Potassium Chloride Oral Liquid) 40 meq PO DAILY [facility] Last Admin: 01/14/20 09:50 Dose: 40 meq Documented by: Valproate Sodium (Depakene -) 1,500 mg NGT TID [facility] Last Admin: 01/14/20 05:29 Dose: 1,500 mg Documented by: A/P s/p Status Epilepticus s/p Acute Respiratory Failure UTI Bacteremia Sepsis +Troponins likely Demand Ischemia Recent COVID19 Bipolar Disorder Mental Retardation DM h/o TBI h/o DVT Anemia - continue antiepileptics - completed antibiotics - continue anticoagulation - enteral feeds
--- NOTE | 2020-01-14 11:07 | PN ---
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
[2020-01-14 14:25] VITALS: BP 126/72; PULSE 107; TEMP 98.2
== END 2020-01-14 17:00 | DRG 951 ==
LOC: JER 23:19 → JERBED 23:57 → JICU 12-26 05:03 → J7W 12-31 16:56
PROVIDERS: ADMIT Internal Medicine; ATTEND Family Medicine
PROC: 05HM33Z Insertion of Infusion Device into Right Internal Jugular Vein, Percutaneous Approach (ICD-10-PCS; principal; 2019-12-26)
PROC: B543ZZA Ultrasonography of Right Jugular Veins, Guidance (ICD-10-PCS; 2019-12-26)
PROC: 0CHY7BZ Insertion of Airway into Mouth and Throat, Via Natural or Artificial Opening (ICD-10-PCS; 2019-12-26)
PROC: 5A1955Z Respiratory Ventilation, Greater than 96 Consecutive Hours (ICD-10-PCS; 2019-12-26)
PROC: 009U3ZZ Drainage of Spinal Canal, Percutaneous Approach (ICD-10-PCS; 2019-12-27)
PROC: B01BZZZ Fluoroscopy of Spinal Cord (ICD-10-PCS; 2019-12-27)
PROC: 4A00X4Z Measurement of Central Nervous Electrical Activity, External Approach (ICD-10-PCS; 2019-12-27)
PROC: 0DHA3UZ Insertion of Feeding Device into Jejunum, Percutaneous Approach (ICD-10-PCS; 2019-12-27)
PROC: 0DH673Z Insertion of Infusion Device into Stomach, Via Natural or Artificial Opening (ICD-10-PCS; 2020-01-10)
PROC: 3E0G76Z Introduction of Nutritional Substance into Upper GI, Via Natural or Artificial Opening (ICD-10-PCS; 2020-01-10)
DX: G40.901 Epilepsy, unspecified, not intractable, with status epilepticus (principal); F79 Unspecified intellectual disabilities; F31.9 Bipolar disorder, unspecified; E66.9 Obesity, unspecified; R62.7 Adult failure to thrive; D69.6 Thrombocytopenia, unspecified; Z68.32 Body mass index [BMI] 32.0-32.9, adult; N39.0 Urinary tract infection, site not specified; E11.9 Type 2 diabetes mellitus without complications; G93.89 Other specified disorders of brain; E87.6 Hypokalemia; E87.0 Hyperosmolality and hypernatremia; E83.42 Hypomagnesemia; I24.8 Other forms of acute ischemic heart disease; G93.41 Metabolic encephalopathy; R79.89 Other specified abnormal findings of blood chemistry; D63.8 Anemia in other chronic diseases classified elsewhere; B96.4 Proteus (mirabilis) (morganii) as the cause of diseases classified elsewhere; A41.89 Other specified sepsis; R00.0 Tachycardia, unspecified; R49.0 Dysphonia; R10.9 Unspecified abdominal pain; R13.10 Dysphagia, unspecified; R44.3 Hallucinations, unspecified; J96.00 Acute respiratory failure, unspecified whether with hypoxia or hypercapnia; J69.0 Pneumonitis due to inhalation of food and vomit; R50.9 Fever, unspecified; R94.31 Abnormal electrocardiogram [ECG] [EKG]; Z87.820 Personal history of traumatic brain injury; Z86.718 Personal history of other venous thrombosis and embolism; Z74.01 Bed confinement status
CPT/HCPCS: 36415; 36600; 49440; 70450-TC; 70551-TC; 71045-TC-FY; 73590-TC-RT-FY; 74018-TC-FY; 74170-TC; 76700-TC; 76856-TC; 76937; 80048; 80053; 80164; 81003; 82272; 82550; 82553; 82607; 82668; 82728; 82803; 82945; 82962; 83036; 83540; 83550; 83605; 83615; 83735; 83880; 84100; 84132; 84157; 84443; 84484; 84703; 85025; 85027; 85610; 85651; 85730; 86140; 86592; 86663; 86664; 86665; 86694; 86735; 86765; 86787; 86788; 86789; 87040; 87070; 87086; 87186; 87205; 87493; 87529; 87899; 93005; 93010; 93306-TC; 94002; 95816; 97162-GP; 99291; 99292; G0480; J1100; J1644; J2997; Q9967; U0003

== ENCOUNTER 2020-03-09 17:35 | Inpatient (IN) | payer OTHER ==
[2020-03-09 18:09] VITALS: BMI 19.3
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
[2020-03-09] MEDS ORDERED: OLANZapine 10 MG TABLET PO ONE (20:24)
[2020-03-09] MEDS ORDERED: OLANZapine 10 MG TABLET ONE (20:30)
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
[2020-03-09 21:42] LABS: BASO % 0.7 % (0-2.0); EOS % 1.6 % (0-4.5); HEMATOCRIT 31.4 % (32.4-45.2); HEMOGLOBIN 10.1 GM/dL (10.7-15.3); LYMPH % 32.6 % (8-40); MCH 29.1 pg (25.7-33.7); MCHC 32.2 g/dl (32.0-36.0); MEAN CELL VOLUME 90.3 fl (80-96); MEAN PLT VOLUME 9.6 fl (7.5-11.1); MONO % 7.2 % (3.8-10.2); NEUT % 57.9 % (42.8-82.8); PLATELET COUNT 205 K/MM3 (134-434); RBC 3.48 M/mm3 (3.60-5.2); RDW 15.6 % (11.6-15.6); WHITE BLOOD COUNT 10.7 K/mm3 (4.0-10.0)
[2020-03-09 22:42] LABS: ALBUMIN 2.3 g/dl (3.4-5.0); BILIRUBIN,TOTAL 0.3 mg/dL (0.2-1); BLOOD UREA NITROGEN 9.4 mg/dL (7-18); CALCIUM 8.5 mg/dL (8.5-10.1); CREATININE 0.5 mg/dL (0.55-1.3); MAGNESIUM 1.7 mg/dL (1.8-2.4); POTASSIUM 4.1 mmol/L (3.5-5.1); TOT PROT 6.2 g/dl (6.4-8.2)
[2020-03-10] MEDS ORDERED: VALPROATE SODIUM 250 MG/5 ML UNIT DOSE CUP PO ONE (06:00)
[2020-03-10] MEDS ORDERED: VALPROATE SODIUM 250 MG/5 ML UNIT DOSE CUP PO SCH ×2 (06:00)
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
[2020-03-10] MEDS ORDERED: APIXABAN 2.5 MG TABLET ONE (09:18)
[2020-03-10] MEDS ORDERED: ENOXAPARIN NA (PORCINE) 40 MG/0.4 ML DISP.SYRIN SQ SCH (10:00)
[2020-03-10] MEDS ORDERED: ASPIRIN 81 MG CHEWABLE TABLETS ONE (10:33)
[2020-03-10] MEDS ORDERED: CEFTRIAXONE 1 GM/50 ML BAG ONE (10:33)
[2020-03-10] MEDS ORDERED: TAMSULOSIN HCL 0.4 MG CAP ONE (10:33)
[2020-03-10] MEDS: levETIRAcetam 500 MG/5 ML ORAL SOLUTION (UNIT-DOSE CUPS) PO SCH (10:55)
[2020-03-10] MEDS: APIXABAN 2.5 MG TABLET PO SCH (13:48)
[2020-03-10] MEDS: PERPHENAZINE 2 MG TABLET PO SCH ×2 (13:48→20:01)
[2020-03-10] MEDS: BENZTROPINE MESYLATE 1 MG TABLET PO SCH (13:48)
[2020-03-10] MEDS: CHOLECALCIFEROL (VIT D3) 1,000 UNIT (25 MCG) TABLET PO SCH (13:48)
[2020-03-10] MEDS: FLUoxetine HCL 10 MG CAPSULE PO SCH (13:48)
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
[2020-03-10] MEDS ORDERED: HALOPERIDOL LACTATE 5 MG/ML IM ONE (16:46)
[2020-03-10] MEDS: VALPROATE SODIUM 250 MG/5 ML UNIT DOSE CUP PO SCH (17:13)
[2020-03-10] MEDS ORDERED: QUEtiapine FUMARATE 300 MG TABLET PO SCH (22:00)
[2020-03-10] MEDS ORDERED: PERPHENAZINE 2 MG TABLET PO SCH (22:00)
[2020-03-10] MEDS ORDERED: traZODone HCL 100 MG TABLET (FP) PO SCH (22:00)
[2020-03-10 22:23] LABS: PH,URINE >= 9.0 (5.0-8.0); URINE APPEARANCE CLOUDY; URINE BILIRUBIN NEGATIVE (NEGATIVE); URINE COLOR YELLOW; URINE GLUCOSE (UA) NEGATIVE (NEGATIVE); URINE KETONE NEGATIVE (NEGATIVE); URINE LEUK ESTERASE NEGATIVE (NEGATIVE); URINE NITRITE NEGATIVE (NEGATIVE); URINE PROTEIN NEGATIVE (NEGATIVE)
[2020-03-11] MEDS: APIXABAN 2.5 MG TABLET PO SCH ×4 (00:44→23:32)
[2020-03-11] MEDS: BENZTROPINE MESYLATE 1 MG TABLET PO SCH ×2 (00:44→11:00)
[2020-03-11] MEDS: VALPROATE SODIUM 250 MG/5 ML UNIT DOSE CUP PO SCH ×4 (00:45→21:19)
[2020-03-11] MEDS: levETIRAcetam 500 MG/5 ML ORAL SOLUTION (UNIT-DOSE CUPS) PO SCH ×3 (00:46→18:17)
[2020-03-11] MEDS: PERPHENAZINE 2 MG TABLET PO SCH (08:23)
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
[2020-03-11] MEDS ORDERED: LORazepam 2 MG/ML SDV VIAL IM PRN (10:31)
[2020-03-11] MEDS ORDERED: PT OWN MED DRAWER 7, Y5N ONE (10:40)
[2020-03-11] MEDS: CHOLECALCIFEROL (VIT D3) 1,000 UNIT (25 MCG) TABLET PO SCH (11:00)
[2020-03-11] MEDS ORDERED: ACETAMINOPHEN 500 MG TABLET (FP) PO PRN (11:30)
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
[2020-03-11] MEDS: OLANZapine 10 MG TABLET PO SCH ×2 (12:44→21:12)
[2020-03-11] MEDS: PANTOPRAZOLE 40 MG TABLET PO SCH (12:44)
[2020-03-11] MEDS: FLUoxetine HCL 20 MG CAPSULE PO SCH (12:44)
[2020-03-11] MEDS: levETIRAcetam 500 MG TABLET (FP) PO SCH ×3 (12:45→23:31)
[2020-03-11] MEDS: MULTIVIT-MINERALS ORAL LIQUID PO SCH (12:45)
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
[2020-03-11] MEDS: FLUoxetine HCL 10 MG CAPSULE PO SCH (18:17)
[2020-03-11] MEDS: SENNOSIDES 8.6MG TABLET (FP) PO SCH ×2 (21:13→23:31)
[2020-03-11] MEDS ORDERED: OLANZapine 5 MG TABLET PO SCH (22:00)
[2020-03-12] MEDS: VALPROATE SODIUM 250 MG/5 ML UNIT DOSE CUP PO SCH ×4 (05:31→14:38)
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
[2020-03-12] MEDS: levETIRAcetam 500 MG TABLET (FP) PO SCH ×2 (10:02→21:08)
[2020-03-12] MEDS: APIXABAN 2.5 MG TABLET PO SCH ×3 (10:02→21:08)
[2020-03-12] MEDS: LACTOBACILLUS ACIDOPHILUS 1 TABLET PO SCH (10:03)
[2020-03-12] MEDS: PANTOPRAZOLE 40 MG TABLET PO SCH ×2 (10:03→12:37)
[2020-03-12] MEDS: FLUoxetine HCL 20 MG CAPSULE PO SCH ×2 (10:03→12:36)
[2020-03-12] MEDS: CHOLECALCIFEROL (VIT D3) 1,000 UNIT (25 MCG) TABLET PO SCH ×2 (10:03→12:37)
[2020-03-12] MEDS: OLANZapine 10 MG TABLET PO SCH ×3 (10:03→21:08)
[2020-03-12] MEDS: MULTIVIT-MINERALS ORAL LIQUID PO SCH (10:09)
[2020-03-12] MEDS ORDERED: PT OWN MED DRAWER 7, Y5N ONE ×3 (12:34→22:12)
[2020-03-12] MEDS: SENNOSIDES 8.6MG TABLET (FP) PO SCH (21:09)
[2020-03-12] MEDS: DIVALPROEX SODIUM 500 MG TABLET E.C. PO SCH (22:17)
[2020-03-13] MEDS: DIVALPROEX SODIUM 500 MG TABLET E.C. PO SCH ×2 (05:59→14:12)
[2020-03-13 10:50] VITALS: BP 136/95; PULSE 93; TEMP 98.2
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
[2020-03-13] MEDS ORDERED: PT OWN MED DRAWER 7, Y5N ONE (11:12)
[2020-03-13] MEDS: OLANZapine 10 MG TABLET PO SCH (11:18)
[2020-03-13] MEDS: APIXABAN 2.5 MG TABLET PO SCH (11:18)
[2020-03-13] MEDS: FLUoxetine HCL 20 MG CAPSULE PO SCH (11:19)
[2020-03-13] MEDS: PANTOPRAZOLE 40 MG TABLET PO SCH (11:19)
[2020-03-13] MEDS: CHOLECALCIFEROL (VIT D3) 1,000 UNIT (25 MCG) TABLET PO SCH (11:19)
[2020-03-13] MEDS: LACTOBACILLUS ACIDOPHILUS 1 TABLET PO SCH (11:19)
[2020-03-13] MEDS: levETIRAcetam 500 MG TABLET (FP) PO SCH (11:22)
== END 2020-03-13 17:30 | disposition home or self-care (01) | DRG 951 ==
LOC: JER 17:35 → JERBED 23:35 → J6S 03-11 03:49
PROVIDERS: ADMIT Internal Medicine; ATTEND Family Medicine
PROC: 0DP67UZ Removal of Feeding Device from Stomach, Via Natural or Artificial Opening (ICD-10-PCS; principal; 2020-03-11)
DX: T76.91XA Unspecified adult maltreatment, suspected, initial encounter (principal); F31.9 Bipolar disorder, unspecified; R26.9 Unspecified abnormalities of gait and mobility; E11.9 Type 2 diabetes mellitus without complications; F79 Unspecified intellectual disabilities; G40.909 Epilepsy, unspecified, not intractable, without status epilepticus; D64.9 Anemia, unspecified; Z93.1 Gastrostomy status; S06.9X9S Unspecified intracranial injury with loss of consciousness of unspecified duration, sequela; Z86.718 Personal history of other venous thrombosis and embolism
CPT/HCPCS: 36415; 49460; 70450-TC; 71045-TC-FY; 80053; 81003; 83735; 85025; 93970-TC; 97116-GP; 97162-GP; 99285-25; U0003